=== PATIENT | male | born 1940 | race Caucasian/White ===

== ENCOUNTER 2019-03-18 09:17 | Emergency (ER) | payer OTHER ==
[2019-03-18] MEDS ORDERED: NA CHLORIDE 0.9% 500 ML ONE ×2 (10:51→14:58)
[2019-03-18] MEDS ORDERED: TETANUS & DIPHTHERIA TOX,ADULT 0.5 ML VIAL ONE (10:52)
[2019-03-18 10:56] LABS: Absolute Lymphocytes (CBC) 0.7 K/uL (0.7-4.9); Basophils % 0.2 % (0-1.3); Hematocrit 42.8 % (39.6-49.0); MPV 8.8 fL (7.6-11.3)
--- NOTE | 2019-03-18 11:06 | RAD REPORT ---
EXAM DESCRIPTION: CT - CTHCSPWOC - 03/18/2019 10:50 am CLINICAL HISTORY: Trauma, head and neck injury. Fall injury;Pain COMPARISON: No comparisons TECHNIQUE: Axial 5 mm thick images of the head were obtained. Axial 2 mm thick images of the cervical spine were obtained with sagittal and coronal reconstruction images generated and reviewed. All CT scans are performed using dose optimization technique as appropriate and may include automated exposure control or mA/KV adjustment according to patient size. FINDINGS: CT HEAD WITHOUT CONTRAST: No acute hemorrhage, hydrocephalus or extra-axial collection is identified.Prominent generalized brai n atrophy pattern is noted.No areas of brain edema or midline shift. The paranasal sinuses and mastoids are clear.The calvarium is intact. 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 Small posterior osteophyt es are present involving the mid and lower cervical levels.No prevertebral soft tissues swelling is i dentified. Carotid atherosclerosis. Upper lung liz are emphysematous. IMPRESSION: No acute intracranial or cervical spine findings.
[2019-03-18 11:12] LABS: Albumin 3.5 g/dL (3.4-5.0); Bilirubin Direct 0.3 mg/dL (0-0.2); Potassium 4.8 mmol/L (3.5-5.1); Protein, Total 6.8 g/dL (6.4-8.2)
--- NOTE | 2019-03-18 11:24 | RAD REPORT ---
EXAM DESCRIPTION: RAD - Sacrum And Coccyx - 03/18/2019 11:17 am CLINICAL HISTORY: PAIN COMPARISON: No comparisons FINDINGS: The bones are demineralized. No evidence of a fracture seen. Mild atherosclerosis.
[2019-03-18] MEDS ORDERED: NA CHLORIDE 0.9% 1,000 ML ONE ×2 (11:50→15:37)
--- NOTE | 2019-03-18 11:55 | RAD REPORT ---
EXAM DESCRIPTION: RAD - Chest Single View - 03/18/2019 11:49 am CLINICAL HISTORY: Weakness Chest pain. COMPARISON: No comparisons FINDINGS: Portable technique limits examination quality. The lungs are mildly emphysematous but grossly clear. The heart is normal in size. Changes of prior C ABG noted.No displaced fracture seen. IMPRESSION: No acute intrathoracic process suspected.
--- NOTE | 2019-03-18 12:11 | RAD REPORT ---
EXAM DESCRIPTION: CT - Abdomen Pelvis Wo Contrast - 03/18/2019 11:44 am CLINICAL HISTORY: Abdominal pain, diarrhea, leukocytosis, fall COMPARISON: None. TECHNIQUE: Axial [address] imaging of the abdomen and pelvis was performed without IV contrast. No IV contrast was given because of allergy, abnormal renal function, patient refusal or physician re quest. Oral contrast was given. All CT scans are performed using dose optimization technique as appropriate and may include automated exposure control or mA/KV adjustment according to patient size. FINDINGS: No suspicious findings in the lung bases. No cardiomegaly or pericardial effusion. The liver, spleen and pancreas show no suspicious findings on non-contrast imaging. At least 1 subcen timeter gallstone is identified. No active gallbladder process suspected. No biliary tree dilatation. No hydronephrosis or suspicious renal mass. Right-side central renal calcifications are suspected to be vascular. Nonobstructing calyx calcification may be the etiology for a lower pole calcification. R ight adrenal gland is unremarkable. Left adrenal gland fullness is present. Isodense renal masses and pyelonephritis cannot be excluded in the absence of IV contrast. The urinary bladder is without sign ificant finding. Small hiatal hernia is present at the GE junction. No gastric wall thickening or mass suspected. No a cute small bowel finding identifiable. Normal diameter air-filled appendix identified. No acute colon finding from cecum through the hepatic flexure. There is wall thickening of the colon from mid desce nding colon through the distal rectum. No one focal colon mass identified. There is some stranding in the perirectal fat. Nonspecific left-sided colitis is suspected. Wall thickening or edema could be s econdary to an underlying leukocytosis or other metabolic process. No free air or pneumatosis. No mass or bulky lymphadenopathy. No hernia defects seen. A 5-6 centimeter area of a amorphous stranding is present in the inferior aspect right lower quadrant . No abnormal skeletal muscular finding in this region. Given the history of fall, this could be post traumatic hemorrhage. A spontaneous hemorrhage would be a differential consideration if the patient i s on anticoagulation medication. The tip of the appendix abuts this area of stranding ; however, a pr imary appendix process is not suspected. No suspicious bony findings. IMPRESSION: No bowel obstruction, free air or surgically emergent finding. A 4-5 centimeter area of a amorphous stranding is seen in the inferior right lower quadrant suspected to be hemorrhagic material from either spontaneous hemorrhage or due to the provided history of fall . Circumferential wall thickening extending from mid descending colon through the rectum. This could be an nonspecific colitis. Bowel wall thickening or edema from leukocytosis or electrolyte imbalance wo uld be possible as well. Cholelithiasis without evidence for cholecystitis. No biliary tree abnormality. Full assessment is limited is the absence of IV contrast.
[2019-03-18 12:18] LABS: Protime INR 1.4
--- NOTE | 2019-03-18 12:38 | EKG ---
Test Date: 2019-03-18 Test Time: 11:19:24 [employer]: TERE MEASUREMENT RESULTS: Intervals: Rate: 106 MA: 220 QRSD: 118 QT: 410 QTc: 544 [place]: P: 89 MA: 220 QRS: 39 T: -24 INTERPRETIVE STATEMENTS: Sinus tachycardia with 1st degree AV block Right bundle branch block T wave abnormality, consider inferolateral ischemia Abnormal ECG No previous ECG available for comparison Electronically Signed On 03-18-19 12:37:38 CDT by Gio Juarez
[2019-03-18 12:54] LABS: Troponin (Emerg Dept Use Only) 0.03 ng/mL (0.0-0.045)
[2019-03-18 13:21] LABS: Urine Amorphous Sediment 1+ /HPF (NONE SEEN); Urine Bacteria <20 /HPF (NONE SEEN); Urine Culture Reflex Order NOT NEEDED; Urine RBC <5 /HPF (NONE SEEN)
--- NOTE | 2019-03-18 13:21 | ER ---
Nurse's Notes [facility] Name: Edward Ambrosio Age: 78 yrs Sex: Male : 1940 Arrival Date: 03/18/2019 Time: 09:23 Bed 23 Private MD: Diagnosis: Colitis;Diarrhea, unspecified;Rhabdomyolysis;Dehydration;Other fall on same level Presentation: 03/18 09:23 Presenting complaint: EMS states: found patient on floor c/o pain to sacrum. aj reports normal mentation for patient. Patient alert and oriented to person and place. Denies feeling sick. Transition of care: patient was not received from another setting of care. Onset of symptoms was March 18, 2019. Risk Assessment: Do you want to hurt yourself or someone else? Patient reports no desire to harm self or others. Initial Sepsis Screen: Does the patient meet any 2 criteria? No. Patient's initial sepsis screen is negative. Does the patient have a suspected source of infection? No. Patient's initial sepsis screen is negative. Care prior to arrival: None. 09:23 Method Of Arrival: EMS: [facility] 09:23 Acuity: MAO 3 aj Triage Assessment: 09:32 General: Appears in no apparent distress. comfortable, Behavior is calm, cooperative, aj appropriate for age. Pain: Complains of pain in buttocks. Neuro: Level of Consciousness is awake, alert, obeys commands, Oriented to person, place. Respiratory: Airway is patent Respiratory effort is even, unlabored, Respiratory pattern is regular, symmetrical. Derm: Skin is intact, is healthy with good turgor, Skin is pink, warm \T\ dry. normal. Historical: - Allergies: 09:32 PENICILLINS; aj - Home Meds: 09:32 galantamine 24 mg oral C24P 1 cap once daily [Active]; simvastatin 20 mg Oral tab 1 tab aj once daily [Active]; metoprolol tartrate 50 mg Oral tab 1 tab 2 times per day [Active]; amlodipine 5 mg tab 1 tab once daily [Active]; memantine 10 mg oral tab 1 tab 2 times per day [Active]; trazodone 100 mg Oral tab 1 tab nightly [Active]; clopidogrel 75 mg oral tab 1 tab once daily [Active]; ranitidine HCl 150 mg Oral cap 1 cap 2 times per day [Active]; lisinopril 20 mg Oral tab 1 tab once daily [Active]; cyanocobalamin (vitamin B-12) 1,000 mcg oral tab [Active]; - PMHx: 09:32 Alzheimers; Hypertension; Hyperlipidemia; Diabetes - IDDM; aj - 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 - Social history:: Smoking status: Patient/guardian denies using tobacco. - Ebola Screening: : Patient negative for fever greater than or equal to 101.5 degrees Fahrenheit, and additional compatible Ebola Virus Disease symptoms Patient denies exposure to infectious person Patient denies travel to an Ebola-affected area in the 21 days before illness onset No symptoms or risks identified at this time. Screenin:12 Abuse screen: Denies threats or abuse. Denies injuries from another. Nutritional mg2 screening: No deficits noted. Tuberculosis screening: No symptoms or risk factors identified. Fall Risk Fall in past 12 months (25 points). Secondary diagnosis (15 points) Alzheimer's, IV access (20 points). Gait- Weak (10 pts.). Mental Status- Overestimates/Forgets Limitations (15 pts.). Assessment: 13:27 General: Appears in no apparent distress. comfortable, Behavior is calm, cooperative. mg2 Pain: Denies pain. Neuro: Level of Consciousness is awake, alert, obeys commands, Oriented to person, place. Cardiovascular: Capillary refill < 3 seconds Patient's skin is warm and dry. Respiratory: Airway is patent Respiratory effort is even, unlabored, Respiratory pattern is regular, symmetrical. GI: No signs and/or symptoms were reported involving the gastrointestinal system. GI: Rectal exam: Bleeding noted. : No signs and/or symptoms were reported regarding the genitourinary system. EENT: Derm: Skin is intact, is healthy with good turgor, Skin is pink, warm \T\ dry. normal. Musculoskeletal: Circulation, motion, and sensation intact. Capillary refill < 3 seconds. 16:02 Reassessment: report given to SHARI Polanco, patient is well, GCS 15/15. mg2 conscious and coherent prior to transfer. Vital Signs: 09:32 BP 165 / 68; Pulse 103; Resp 19; Temp 99.2(O); Pulse Ox 97% on R/A; Weight 63.5 kg; aj Height 5 ft. 9 in. (175.26 cm); 13:05 BP 164 / 85; Pulse 103; Resp 18; Temp 99.2; Pulse Ox 98% on R/A; mg2 14:28 BP 156 / 55; Pulse 106; Resp 18; Temp 99.2; Pulse Ox 97% on R/A; Pain 0/10; mg2 15:13 BP 122 / 60; Pulse 108; Resp 18; Temp 99.4; Pulse Ox 97% on R/A; Pain 0/10; mg2 09:32 Body Mass Index 20.67 (63.50 kg, 175.26 cm) aj ED Course: 09:23 Patient arrived in ED. aj 09:25 Triage completed. aj 09:32 Arm band placed on left wrist. Patient placed in an exam room, on a stretcher, on aj cardiac rn, on pulse oximetry. 09:35 Arvin Jimenez NP is PHCP. pm1 09:35 Naga Stoner MD is Attending Physician. pm1 10:05 Deja David RN is Primary Nurse. aj 10:52 CT Head C Spine In Process Unspecified. EDMS 11:17 Sacrum And Coccyx In Process Unspecified. EDMS 11:45 CT Abd/Pelvis - Without Contrast In Process Unspecified. EDMS 11:49 X-ray completed. Portable x-ray completed in exam room. Patient tolerated procedure jb2 well. 11:51 Chest Single View XRAY In Process Unspecified. EDMS 13:11 Served as a supervisor sample preparation during rectal exam. mg2 13:13 Eliane Bush MD is Hospitalizing Provider. pm1 13:26 Inserted saline lock: 20 gauge in right antecubital area, using aseptic technique. mg2 Blood collected. by MANJU Short. 13:28 Patient has correct armband on for positive identification. product marketing coordinator on. Pulse mg2 ox on. NIBP on. Door closed. Warm blanket given. 16:05 Patient transferred, IV remains in place. mg2 Administered Medications: 10:46 Drug: Tetanus-Diphtheria Toxoid Adult 0.5 ml {Web Producer: [employer]. Exp: aj 12/20/2020. Lot #: [id number]. } Route: IM; Site: right deltoid; 14:25 Follow up: Response: No adverse reaction mg2 11:25 Drug: NS 0.9% 500 ml Route: IV; Rate: bolus; Site: right antecubital; ss 14:25 Follow up: Response: No adverse reaction; IV Status: Completed infusion; IV Intake: mg2 500ml 12:00 Drug: NS 0.9% (30 ml/kg) 30 ml/kg Route: IV; Rate: bolus; Site: right antecubital; mg2 16:04 Follow up: Response: No adverse reaction; IV Status: Completed infusion; IV Intake: mg2 1900ml 13:33 Drug: Flagyl 500 mg Volume: 100 ml; Route: IVPB; Rate: 200 ml/hr; Infused Over: 30 mg2 mins; Site: right antecubital; 14:43 Follow up: Response: No adverse reaction; IV Status: Completed infusion mg2 14:20 Drug: LevaQUIN 500 mg Volume: 100 ml; Route: IVPB; Infused Over: 60 mins; Site: right mg2 antecubital; 16:04 Follow up: Response: No adverse reaction; IV Status: Completed infusion mg2 14:55 Drug: Insulin Regular Human 10 units {Co-Signature: bob (Deja David RN).} Route: IVP; mg2 Site: right antecubital; 16:04 Follow up: Response: No adverse reaction; Blood sugar is lowered mg2 15:26 Drug: NS 0.9% 1000 ml Route: IV; Rate: 100 ml/hr; Site: right antecubital; mg2 16:04 Follow up: Response: No adverse reaction; IV Status: Infusion continued upon transfer mg2 Point of Care Testing: Blood Glucose: 09:34 Blood Glucose: 405 mg/dL; aj 15:45 Blood Glucose: 399 mg/dL; mg2 Ranges: Intake: 14:25 IV: 500ml; Total: 500ml. mg2 16:04 IV: 1900ml; Total: 2400ml. mg2 Outcome: 13:21 Decision to Hospitalize by Provider. pm1 14:11 ER care complete, transfer ordered by MD. pm1 16:05 Transferred by ground EMS to [facility], Transfer form completed. mg2 16:05 Condition: stable 16:05 Instructed on the need for transfer, Demonstrated understanding of instructions. 16:05 Patient left the ED. mg2 Signatures: Dispatcher [employer] Deja Yoo RN RN aj Buechter, Jesse jb2 Smirch, Shelby, RN RN ss Marinas, Patrick, SPORTS CLERK SPORTS CLERK pm1 Jonathan Villa RN RN mg2 Deja David RN aj Corrections: (The following items were deleted from the chart) 12:47 NS 0.9% (30 ml/kg) 30 ml/kg IV at bolus in right antecubital aj mg2 14:24 Response: No adverse reaction; IV Status: Completed infusion; IV Intake: 1900ml mg2 mg2 14:25 Response: No adverse reaction; IV Status: Completed infusion; IV Intake: 1000ml mg2 mg2
--- NOTE | 2019-03-18 13:22 | EDPHYS ---
Physician Documentation [facility] Name: Edward Ambrosio Age: 78 yrs Sex: Male : 1940 Arrival Date: 03/18/2019 Time: 09:23 Bed 23 Private MD: ED Physician Naga Stoner HPI: 03/18 10:48 This 78 yrs old Male presents to ER via EMS with complaints of Fall. pm1 10:48 Details of fall: The patient fell from an upright position, while standing. Onset: The pm1 symptoms/episode began/occurred One fall yesterday and one fall this AM. Associated injuries: The patient sustained injury to the head, coccyx. Historical: - Allergies: 09:32 PENICILLINS; aj - Home Meds: 09:32 galantamine 24 mg oral C24P 1 cap once daily [Active]; simvastatin 20 mg Oral tab 1 tab aj once daily [Active]; metoprolol tartrate 50 mg Oral tab 1 tab 2 times per day [Active]; amlodipine 5 mg tab 1 tab once daily [Active]; memantine 10 mg oral tab 1 tab 2 times per day [Active]; trazodone 100 mg Oral tab 1 tab nightly [Active]; clopidogrel 75 mg oral tab 1 tab once daily [Active]; ranitidine HCl 150 mg Oral cap 1 cap 2 times per day [Active]; lisinopril 20 mg Oral tab 1 tab once daily [Active]; cyanocobalamin (vitamin B-12) 1,000 mcg oral tab [Active]; - PMHx: 09:32 Alzheimers; Hypertension; Hyperlipidemia; Diabetes - IDDM; aj - 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 - Social history:: Smoking status: Patient/guardian denies using tobacco. - Ebola Screening: : Patient negative for fever greater than or equal to 101.5 degrees Fahrenheit, and additional compatible Ebola Virus Disease symptoms Patient denies exposure to infectious person Patient denies travel to an Ebola-affected area in the 21 days before illness onset No symptoms or risks identified at this time. ROS: 10:48 Constitutional: Negative for fever, chills, and weight loss, Eyes: Negative for injury, pm1 pain, redness, and discharge, ENT: Negative for injury, pain, and discharge, Neck: Negative for injury, pain, and swelling, Cardiovascular: Negative for chest pain, palpitations, and edema, Respiratory: Negative for shortness of breath, cough, wheezing, and pleuritic chest pain. 10:48 : Negative for injury, bleeding, discharge, and swelling, MS/Extremity: Negative for injury and deformity. 10:48 Skin: Negative for injury, rash, and discoloration, Neuro: Negative for headache, weakness, numbness, tingling, and seizure. 10:48 Abdomen/GI: Positive for diarrhea, rectal bleeding, Negative for abdominal pain, nausea, vomiting. 10:48 Back: Positive for of the sacrum and coccyx, Negative for pain with movement. Exam: 10:48 Constitutional: This is a well developed, well nourished patient who is awake, alert, pm1 and in no acute distress. Head/Face: Normocephalic, atraumatic. Eyes: Pupils equal round and reactive to light, extra-ocular motions intact. Lids and lashes normal. Conjunctiva and sclera are non-icteric and not injected. Cornea within normal limits. Periorbital areas with no swelling, redness, or edema. ENT: Nares patent. No nasal discharge, no septal abnormalities noted. Tympanic membranes are normal and external auditory canals are clear. Oropharynx with no redness, swelling, or masses, exudates, or evidence of obstruction, uvula midline. Mucous membranes moist. Neck: Trachea midline, no thyromegaly or masses palpated, and no cervical lymphadenopathy. Supple, full range of motion without nuchal rigidity, or vertebral point tenderness. No Meningismus. Chest/axilla: Normal chest wall appearance and motion. Nontender with no deformity. No lesions are appreciated. Cardiovascular: Regular rate and rhythm with a normal S1 and S2. No gallops, murmurs, or rubs. Normal PMI, no JVD. No pulse deficits. Respiratory: Lungs have equal breath sounds bilaterally, clear to auscultation and percussion. No rales, rhonchi or wheezes noted. No increased work of breathing, no retractions or nasal flaring. 10:48 Back: No spinal tenderness. No costovertebral tenderness. Full range of motion. Skin: Warm, dry with normal turgor. Normal color with no rashes, no lesions, and no evidence of cellulitis. MS/ Extremity: Pulses equal, no cyanosis. Neurovascular intact. Full, normal range of motion. 10:48 Abdomen/GI: Inspection: abdomen appears normal, Bowel sounds: normal, Palpation: abdomen is soft and non-tender, in all quadrants, Rectal exam: rectal tone normal, hemorrhoid(s), external, with associated bleeding, with inflammation, without thrombosis, mass, is not appreciated, swelling, is not appreciated. 10:48 Neuro: Orientation: to person, Mentation: Baseline per , Motor: moves all fours. Vital Signs: 09:32 BP 165 / 68; Pulse 103; Resp 19; Temp 99.2(O); Pulse Ox 97% on R/A; Weight 63.5 kg; aj Height 5 ft. 9 in. (175.26 cm); 13:05 BP 164 / 85; Pulse 103; Resp 18; Temp 99.2; Pulse Ox 98% on R/A; mg2 14:28 BP 156 / 55; Pulse 106; Resp 18; Temp 99.2; Pulse Ox 97% on R/A; Pain 0/10; mg2 15:13 BP 122 / 60; Pulse 108; Resp 18; Temp 99.4; Pulse Ox 97% on R/A; Pain 0/10; mg2 09:32 Body Mass Index 20.67 (63.50 kg, 175.26 cm) aj MDM: 09:50 Patient medically screened. pm1 13:12 Data reviewed: vital signs. Data interpreted: Pulse oximetry: on room air is 98 %. pm1 Interpretation: normal. Counseling: I had a detailed discussion with the patient and/or guardian regarding: the historical points, exam findings, and any diagnostic results supporting the discharge/admit diagnosis, lab results, radiology results, the need for further work-up and treatment in the hospital. 14:17 ED course: [facility] pm1 15:27 Physician consultation: MD Rodriguez regarding regarding transfer, patient's condition, pm1 and will see patient in ED. 03/18 10:29 Order name: Basic Metabolic Panel; Complete Time: 11:18 pm1 03/18 10:29 Order name: CBC with Diff; Complete Time: 11:18 pm1 03/18 10:29 Order name: Creatinine for Radiology; Complete Time: 11:18 pm1 03/18 10:29 Order name: Hepatic Function; Complete Time: 11:18 pm03/18 10:29 Order name: Lipase; Complete Time: 11:18 pm03/18 11:21 Order name: Blood Culture Adult (2) pm03/18 11:21 Order name: Ckmb; Complete Time: 13:04 pm03/18 11:21 Order name: CPK; Complete Time: 13:04 pm03/18 11:21 Order name: Lactate; Complete Time: 13:04 pm03/18 11:21 Order name: Procalcitonin; Complete Time: 13:04 pm03/18 11:21 Order name: Protime (+inr); Complete Time: 13:04 pm03/18 11:21 Order name: Ptt, Activated; Complete Time: 13:04 pm03/18 11:21 Order name: Troponin (emerg Dept Use Only); Complete Time: 13:04 pm03/18 11:21 Order name: Urine Microscopic Only; Complete Time: 15:41 pm03/18 10:29 Order name: CT Head C Spine; Complete Time: 11:18 pm03/18 10:29 Order name: Sacrum And Coccyx XRAY pm03/18 10:36 Order name: Sacrum And Coccyx; Complete Time: 12:13 EDMS 03/18 11:21 Order name: CT Abd/Pelvis - Without Contrast; Complete Time: 13:04 pm03/18 11:21 Order name: Chest Single View XRAY; Complete Time: 12:13 pm03/18 13:09 Order name: Urine Dipstick--Ancillary (enter results) ak 03/18 14:39 Order name: Glucose, Ancillary Testing; Complete Time: 15:41 EDMS 03/18 14:39 Order name: Glucose, Ancillary Testing; Complete Time: 15:41 EDMS 03/18 14:48 Order name: Glucose; Complete Time: 15:41 mg2 03/18 15:39 Order name: Glucose, Ancillary Testing; Complete Time: 15:41 EDMS 03/18 16:03 Order name: Lactate Sepsis 2 HR Follow-up; Complete Time: 16:11 EDMS 03/18 10:29 Order name: EKG; Complete Time: 10:30 pm03/18 10:29 Order name: EKG - Nurse/Tech; Complete Time: 11:51 pm1 03/18 10:29 Order name: IV Saline Lock; Complete Time: 11:51 pm1 03/18 10:29 Order name: Labs collected and sent; Complete Time: 11:51 pm1 03/18 11:21 Order name: Accucheck; Complete Time: 11:41 pm1 03/18 11:21 Order name: Cardiac monitoring; Complete Time: 11:41 pm1 03/18 11:21 Order name: O2 Per Protocol; Complete Time: 11:41 pm1 03/18 11:21 Order name: O2 Sat Monitoring; Complete Time: 11:41 pm1 03/18 11:21 Order name: Urine Dipstick-Ancillary (obtain specimen); Complete Time: 13:28 pm1 Administered Medications: 10:46 Drug: Tetanus-Diphtheria Toxoid Adult 0.5 ml {Supervisor Incising: [employer]. Exp: bob 12/20/2020. Lot #: [id number]. } Route: IM; Site: right deltoid; 14:25 Follow up: Response: No adverse reaction mg2 11:25 Drug: NS 0.9% 500 ml Route: IV; Rate: bolus; Site: right antecubital; ss 14:25 Follow up: Response: No adverse reaction; IV Status: Completed infusion; IV Intake: mg2 500ml 12:00 Drug: NS 0.9% (30 ml/kg) 30 ml/kg Route: IV; Rate: bolus; Site: right antecubital; mg2 16:04 Follow up: Response: No adverse reaction; IV Status: Completed infusion; IV Intake: mg2 1900ml 13:33 Drug: Flagyl 500 mg Volume: 100 ml; Route: IVPB; Rate: 200 ml/hr; Infused Over: 30 mg2 mins; Site: right antecubital; 14:43 Follow up: Response: No adverse reaction; IV Status: Completed infusion mg2 14:20 Drug: LevaQUIN 500 mg Volume: 100 ml; Route: IVPB; Infused Over: 60 mins; Site: right mg2 antecubital; 16:04 Follow up: Response: No adverse reaction; IV Status: Completed infusion mg2 14:55 Drug: Insulin Regular Human 10 units {Co-Signature: bob David RN).} Route: IVP; mg2 Site: right antecubital; 16:04 Follow up: Response: No adverse reaction; Blood sugar is lowered mg2 15:26 Drug: NS 0.9% 1000 ml Route: IV; Rate: 100 ml/hr; Site: right antecubital; mg2 16:04 Follow up: Response: No adverse reaction; IV Status: Infusion continued upon transfer mg2 Point of Care Testing: Blood Glucose: 09:34 Blood Glucose: 405 mg/dL; aj 15:45 Blood Glucose: 399 mg/dL; mg2 Ranges: Critical Glucose Levels:Adult <50 mg/dl or >400 mg/dl <40 mg/dl or >180 mg/dl Disposition: 16:17 Co-signature as Attending Physician, Naga Stoner MD I agree with the assessment and kdr plan of care. Disposition: 03/18/19 14:11 Transfer ordered to [facility]. Diagnosis are Colitis, Diarrhea, unspecified, Rhabdomyolysis, Dehydration, Other fall on same level. - Reason for transfer: Higher level of care. - Accepting physician is [facility] . - Condition is Stable. - Problem is new. - Symptoms have improved. Signatures: Dispatcher [employer] EDDeja Stevenson, RN RN Naga Bowen MD MD [facility] Anjana Richmond RN RN ss Arvin Jimenez NP NEUROLOGICAL SURGEON pm1 Jonathan Villa RN RN mg2 Deja David RN aj Corrections: (The following items were deleted from the chart) 13:24 13:21 Hospitalization Ordered by Eliane Bush MD for Inpatient Admission. Preliminary pm1 diagnosis is Left sided colitis. Bed requested for Telemetry/MedSurg (Inpatient). Status is Inpatient Admission. Condition is Stable. Problem is new. Symptoms have improved. UTI on Admission? No. pm1 13:24 13:24 03/18/2019 13:21 Hospitalization Ordered by Eliane Bush MD for Inpatient pm1 Admission. Preliminary diagnosis is Left sided colitis; Dehydration. Bed requested for Telemetry/MedSurg (Inpatient). Status is Inpatient Admission. Condition is Stable. Problem is new. Symptoms have improved. UTI on Admission? No. pm1 13:29 13:24 03/18/2019 13:21 Hospitalization Ordered by Eliane Bush MD for Inpatient pm1 Admission. Preliminary diagnosis is Left sided colitis; Dehydration; Rhabdomyolysis. Bed requested for Telemetry/MedSurg (Inpatient). Status is Inpatient Admission. Condition is Stable. Problem is new. Symptoms have improved. UTI on Admission? No. pm1 14:06 13:29 03/18/2019 13:21 Hospitalization Ordered by Eliane Bush MD for Inpatient pm1 Admission. Preliminary diagnosis is Left sided colitis; Dehydration; Rhabdomyolysis; Diarrhea, unspecified. Bed requested for Telemetry/MedSurg (Inpatient). Status is Inpatient Admission. Condition is Stable. Problem is new. Symptoms have improved. UTI on Admission? No. pm1 14:18 14:11 03/18/2019 14:11 Transfer ordered to [place] [facility] [id number] [facility]. Diagnosis is Colitis; Diarrhea, unspecified; Rhabdomyolysis; Dehydration; Other fall on same level. Reason for transfer: Higher level of care. Accepting physician is [facility]. Condition is Stable. Problem is new. Symptoms have improved. pm1 16:05 14:18 03/18/2019 14:11 Transfer ordered to [facility]. Diagnosis is mg2 Colitis; Diarrhea, unspecified; Rhabdomyolysis; Dehydration; Other fall on same level. Reason for transfer: Higher level of care. Accepting physician is [facility] . Condition is Stable. Problem is new. Symptoms have improved. pm1
[2019-03-18 13:39] LABS: Urine Blood 3+ (NEG); Urine Glucose 2+ (NEG); Urine Protein 2+ (NEG)
[2019-03-18] MEDS ORDERED: METRONIDAZOLE 500mg IVPB 500 MG/100 ML BAG IV ONE (13:47)
[2019-03-18] MEDS ORDERED: Levofloxacin500mg IV 500 MG/100 ML BAG IV ONE (14:31)
--- NOTE | 2019-03-18 14:40 | P.CNS ---
Date of Consult: 03/18/19 Reason for Consult: Admission Requesting Physician: Naga Stoner Primary Care Provider: [place] Chief Complaint: Fall History of Present Illness: This is a 78-year-old male who is seen at the [facility] for all of this care who presented to the ED after having a fall yesterday at the house and fall today again. at bedside stated that patient had a fall yesterday and she was able to get him out and in bed and did not think anything of it. Patient's however got worried today when he had another fall and decided to bring him to the ER. Patient's also noted the patient has been having some abdominal pain along with some diarrhea that has been bloody in nature. Yesterday patient's stated that he had a diarrheal episode that was followed with profuse bleeding from the rectal area. When patient fell this morning patient's is unable to get him up and off the ground and thus she decided to bring him to the ER for further evaluation. In the ER patient was seen and examined by the ER physician. Lab work and imaging was done. Lab work was consistent with elevated lactic acid white count CK MB and creatinine. Abdominal CT was done which was consistent with 5- 6 cm hemorrhagic fluid collection on the right lower abdomen area along with possibility of ischemic versus infectious colitis on the descending colon all the way to the distal rectum area. Medicine team was consulted to admit the patient for further workup Review of Systems 10-point ROS is otherwise unremarkable Physical Examination General: In no apparent distress, Oriented x1, Other (Lethargic insomnia) Neck: Supple Respiratory: Normal air movement, Crackles/rales Cardiovascular: Regular rate/rhythm, Normal S1 S2 Gastrointestinal: Hypoactive, Tenderness, Rebound, Guarding Musculoskeletal: Erythema, Tenderness Integumentary: Rash(es) Neurological: Abnormal speech, Abnormal strength, Abnormal sensation Lymphatics: No axilla or inguinal lymphadenopathy Laboratory Data (last 24 hrs) 03/18/19 11:45: PT 16.3 H, INR 1.40, APTT 32.3 03/18/19 10:43: Creatinine 2.00 H 03/18/19 10:43: WBC 18.3 H, Hgb 14.2, Hct 42.8, Plt Count 173 03/18/19 10:43: Sodium 140, Potassium 4.8, BUN 36 H, Creatinine 2.02 H, Glucose 438 H*, Total Bilirubin 1.0, AST 98 H, ALT 22, Alkaline Phosphatase 86, Lipase 27 L - Problems (1) Sepsis Current Visit: Yes Status: Acute Qualifiers: Sepsis type: sepsis due to unspecified organism Qualified Code(s): A41.9 - Sepsis, unspecified organism (2) Acute kidney injury Current Visit: Yes Status: Acute (3) Fall Current Visit: Yes Status: Acute Qualifiers: Encounter type: initial encounter Qualified Code(s): W19.XXXA - Unspecified fall, initial encounter (4) Rhabdomyolysis Current Visit: Yes Status: Acute Qualifiers: Rhabdomyolysis type: traumatic Encounter type: initial encounter Qualified Code(s): T79.6XXA - Traumatic ischemia of muscle, initial encounter (5) Ischemic colitis Current Visit: Yes Status: Acute (6) Abnormal finding on CT scan Current Visit: Yes Status: Acute (7) Hypertension Current Visit: Yes Status: Chronic Qualifiers: Hypertension type: essential hypertension Qualified Code(s): I10 - Essential (primary) hypertension Conclusions/Impression: This is a 78-year-old male with significant past medical history who is currently on chronic anti coagulation with aspirin and Plavix status post fall at the house yesterday and today with episodes of bloody diarrhea and abdominal pain who presented to the ED for further workup. Upon reviewing the labs/ imaging study with the radiologist at this time, performing a through physical examination, and after talking to the at bedside for over 30 mins, patient signs and symptoms along with results are highly suspicious of this is secondary to ischemic colitis along with spontaneous hemorrhage noted on the CT scan of the abdomen. Patient currently is primarily seen by the [facility] all his doctors are at the [facility]. At this time it is advisable that the patient should be transferred to the [facility] for continuity of care with his primary team along with consultants there. In addition given the high suspicious of ischemic colitis general surgery needs to be consulted in the ER to evaluate the patient in the ER. Patient also needs to be assessed for the need for embolization if in fact it is ischemic colitis. At which point vascular surgery needs to be involved along with interventional radiology which the services are not provided at her current Hospital and thus patient will need to be transferred to a higher level of care. This is of course with the condition if patient is denied at the [facility]. Case was discussed at length with PA in the ER. Plan of care for transfer to the [facility] was also discussed at length with the at bedside we initially denied however then agreed to get transfer to the [facility] after discussing the benefit of being at the [facility]. Case was also discussed with the ER physician and at this time and the recommendations were to transfer the patient to the [facility] for continuity of care if that is unavailable to consult general surgery and assess for the need for embolization. Is embolization as needed that the patient will need to be transferred to a higher level of care at [facility].
[2019-03-18] MEDS ORDERED: INSULIN -REGULAR HUMAN 50 UNIT/0.5 ML ML ONE (14:57)
== END 2019-03-18 16:05 | disposition short-term general hospital (02) ==
LOC: ER 09:17
DX: E86.0 Dehydration (principal); M62.82 Rhabdomyolysis; K52.9 Noninfective gastroenteritis and colitis, unspecified; W19.XXXA Unspecified fall, initial encounter; Y93.89 Activity, other specified; Y92.9 Unspecified place or not applicable; Z23 Encounter for immunization; Z88.0 Allergy status to penicillin; Z95.1 Presence of aortocoronary bypass graft; I10 Essential (primary) hypertension; E11.9 Type 2 diabetes mellitus without complications; E78.5 Hyperlipidemia, unspecified; G30.9 Alzheimer's disease, unspecified; F02.80 Dementia in other diseases classified elsewhere, unspecified severity, without behavioral disturbance, psychotic disturbance, mood disturbance, and anxiety
CPT/HCPCS: 36415; 70450; 71045; 72125; 72220; 74176; 80048; 80076; 81003; 81015; 82550; 82553; 82947; 82962; 83605; 83690; 84145; 84484; 85025; 85610; 85730; 87040; 90714; 93005; J7030

== ENCOUNTER 2019-04-05 14:56 | Emergency (ER) | payer OTHER ==
--- OUTSIDE RECORDS SUMMARY | 2019-04-05 15:01 | XMS REPORT | Continuity of Care Document ---
:1940 Author Organization [employer] Care Team Providers Name Role Phone ImaginAb Information fflap Unavailable Unavailable Problems Problem Status Onset Classification Date Comments Source Date Reported Sepsis 03/29/[address] POSS ISCHEMIC Active [facility] BOWEL [address] [place] [address] Center SEPSIS Active [address] Center Type II Active Problem 03/29/2019 [facility] diabetes [facility] mellitus poorly Center controlled SEPSIS, Active [facility] UNSPECIFIED Medical ORGANISM Center Medications Medication Details Route Status Patient Ordering Order Source Instructions Provider Date Citalopram 10 mg, Route: No Longer [facility] PO, Drug form: Active 2018 Medical TAB, Daily, Center Dosing Weight 76.001, kg, Start date: 03/28/19 9:00:00 CDT, Duration: 30 day, Stop date: 04/26/19 9:00:00 CDT quetiapine 25 mg, Route: Inactive [facility] PO, Drug form: 2019 Medical TAB, BID, Center Dosing Weight 76.001, kg, PRN Agitation, Start date: 03/27/19 10:18:00 CDT, Duration: 30 day, Stop date: 04/26/19 10:17:00 CDT Zyprexa 5 mg, 1 tab, No Longer [facility] Route: PO, Active 2018 Medical Drug form: Center TAB, Bedtime, Dosing Weight 76.001, kg, Start date: 03/26/19 21:00:00 CDT, Duration: 30 day, Stop date: 04/24/19 21:00:00 CDT, 0Notes: (Same as: ZyPREXA) Zyprexa 5 mg, 1 tab, No Longer [facility] Route: PO, Active 2018 Medical Drug form: Center TAB, BID, Dosing Weight 76.001, kg, PRN Agitation, Start date: 03/26/19 13:55:00 CDT, Duration: 30 day, Stop date: 04/25/19 13:54:00 CDT, 0Notes: (Same as: ZyPREXA) NS (Bolus) IV 500 mL, 500 Inactive [facility] ml/hr, Infuse 2019 Medical Over: 1 hr, [place] Route: IV, 500, Drug form: INJ, ONCE, Priority: STAT, Dosing Weight 76.001 kg, Start date: 03/26/19 7:30:00 CDT, Stop date: 03/26/19 7:30:00 CDT, 0 NS (Bolus) IV 500 mL, 500 Inactive [facility] ml/hr, Infuse 2019 Medical Over: 1 hr, [place] Route: IV, 500, Drug form: INJ, ONCE, Priority: STAT, Dosing Weight 76.001 kg, Start date: 03/25/19 10:11:00 CDT, Stop date: 03/25/19 10:11:00 CDT, 0 potassium 40 mEq, 2 tab, Inactive [place] chloride 20 mEq Route: PO, 2019 Medical oral tablet, Drug form: [place] extended release ERTAB, ONCE, Dosing Weight 76.001, kg, Start date: 03/25/19 9:14:00 CDT, Stop date: 03/25/19 9:14:00 CDT, 0Notes: (Same as: K-Dur 20) "Do Not Crush" Give with food and full glass of water For patients unable to swallow tablet, dissolve in one half glass of water. Allow about 2 minutes for the tablets to disintegrate. Stir before giving to prepare slurry and administer. Please exclude Patients with feeding tube less than 14 [place] (Dobhoff, J-tube etc) and pediatric and patients. Seroquel 25 mg, 1 tab, No Longer [place] Route: PO, Active 2018 Medical Drug form: [place] TAB, BID, Dosing Weight 76.001, kg, PRN Agitation, Start date: 03/24/19 17:11:00 CDT, Duration: 30 day, Stop date: 04/23/19 17:10:00 CDT, 0Notes: (Same as: SEROquel) Lovenox 40 mg, 0.4 mL, No Longer [place] Route: SUB-Q, Active 2018 Medical Drug form: [place] INJ, [id number], Dosing Weight 76.001, kg, Start date: 03/23/19 11:00:00 CDT, Duration: 30 day, Stop date: 04/21/19 11:00:00 CDTNotes: (Same as: Lovenox) Insulin Glargine 10 unit, 0.1 Inactive [place] 100 UNT/ML mL, Route: 2019 [facility] Injectable SUB-Q, Drug Center Solution form: SOLN, [Lantus] ONCE, Dosing Weight 76.001, kg, Start date: 03/23/19 10:24:00 CDT, Stop date: 03/23/19 10:24:00 CDT Plavix 75 mg, 1 tab, No Longer [place] Route: PO, Active 2019 Medical Drug form: [place] TAB, Daily, Dosing Weight 76.001, kg, Start date: 03/23/19 9:00:00 CDT, Duration: 30 day, Stop date: 04/21/19 9:00:00 CDTNotes: (Same As: Plavix) Potassium 20 mEq, 1 tab, Inactive [place] Chloride Route: PO, 2019 Medical Drug form: [place] ERTAB, ONCE, Dosing Weight 76.001, kg, Start date: 03/23/19 8:55:00 CDT, Stop date: 03/23/19 8:55:00 CDTNotes: (Same as: K-Dur 20) "Do Not Crush" Give with food and full glass of water For patients unable to swallow tablet, dissolve in one half glass of water. Allow about 2 minutes for the tablets to disintegrate. Stir before giving to prepare slurry and administer. Please exclude Patients with feeding tube less than 14 [place] (Dobhoff, J-tube etc) and pediatric and patients. potassium 2 pkt, Route: Inactive [place] phosphate-sodium PO, Drug Form: 2019 [facility] phosphate 250 PDR/REC, [place] mg-280 mg-160 mg Dosing Weight oral powder for 76.001, kg, reconstitution ONCE, Start date: 03/23/19 6:14:00 CDT, Stop date: 03/23/19 6:14:00 CDTNotes: (Same as: Phos-NaK) Each 1.5 gm pkt has 250mg phosphorous. Mix w/2.5oz water and stir. potassium 40 mEq, 2 tab, Inactive [place] chloride 20 mEq Route: PO, 2019 Medical oral tablet, Drug form: [place] extended release ERTAB, ONCE, Dosing Weight 76.001, kg, Start date: 03/23/19 6:14:00 CDT, Stop date: 03/23/19 6:14:00 CDTNotes: (Same as: K-Dur 20) "Do Not Crush" Give with food and full glass of water For patients unable to swallow tablet, dissolve in one half glass of water. Allow about 2 minutes for the tablets to disintegrate. Stir before giving to prepare slurry and administer. Please exclude Patients with feeding tube less than 14 [place] (Dobhoff, J-tube etc) and pediatric and patients. Mirtazapine 15 mg, 1 tab, No Longer [place] Route: PO, Active 2019 Medical Drug form: [place] TAB, Bedtime, Dosing Weight 76.001, kg, Start date: 03/22/19 21:00:00 CDT, Duration: 30 day, Stop date: 04/20/19 21:00:00 CDTNotes: (Same as:Remeron) Plavix 75 mg, 1 tab, Inactive [place] Route: PO, 2019 Medical Drug form: [place] TAB, ONCE, Dosing Weight 76.001, kg, Start date: 03/22/19 11:28:00 CDT, Stop date: 03/22/19 11:28:00 CDTNotes: (Same As: Plavix) Potassium 20 mEq, 1 tab, Inactive [place] Chloride Route: PO, 2019 Medical Drug form: [place] ERTAB, ONCE, Dosing Weight 76.001, kg, Start date: 03/22/19 5:32:00 CDT, Stop date: 03/22/19 5:32:00 CDTNotes: (Same as: K-Dur 20) "Do Not Crush" Give with food and full glass of water For patients unable to swallow tablet, dissolve in one half glass of water. Allow about 2 minutes for the tablets to disintegrate. Stir before giving to prepare slurry and administer. Please exclude Patients with feeding tube less than 14 [place] (Dobhoff, J-tube etc) and pediatric and patients. Trazodone 100 mg, 2 tab, No Longer [place] Hydrochloride Route: PO, Active 2019 Medical 100 MG Oral Drug form: Center Tablet TAB, Bedtime, Dosing Weight 76.001, kg, Start date: 03/21/19 21:00:00 CDT, Duration: 30 day, Stop date: 04/19/19 21:00:00 CDTNotes: (Same As: Desyrel) Lisinopril 20 mg, 1 tab, No Longer [place] Route: PO, Active 2018 Medical Drug form: Center TAB, Daily, Dosing Weight 76.001, kg, Start date: 03/21/19 9:00:00 CDT, Duration: 30 day, Stop date: 04/19/19 9:00:00 CDTNotes: (Same as: Prinivil, Zestril) Amlodipine 5 mg, 1 tab, No Longer [place] Route: PO, Active 2018 Medical Drug form: Center TAB, Daily, Dosing Weight 76.001, kg, Start date: 03/21/19 9:00:00 CDT, Duration: 30 day, Stop date: 04/19/19 9:00:00 CDTNotes: (Same as: Norvasc) Potassium 20 mEq, 100 Inactive [place] Chloride mL, Route: 2019 Medical IVPB, Drug Center form: INJ, Q2H, Dosing Weight 76.001, kg, Total Dose=60 meq, Start date: 03/21/19 8:00:00 CDT, Duration: 3 doses or times, Stop date: 03/21/19 12:00:00 CDT, Peripheral LineNotes: (Same as: KCL) Infuse no faster than 10 mEq/hr if given peripherally. vancomycin + 1.75 gm, No Longer [place] Sodium Chloride Route: IVPB, Active 2018 Medical 0.9% IV 250 mL [id number], Start Center date: 03/21/19 5:00:00 CDT, Duration: 30 day, Stop date: 04/19/19 17:00:00 CDT, ABX Indication: Intra-abdomina l InfectionNotes : TIME CRITICAL MEDICATION (Same As: Vancocin) Infusion rate 2001 mg: infuse over 2.5 hours For adult patients only: Round to nearest 250 mg per Medical Staff approval MEDICATION WASTE Product Size: 1000 mg Product Wasted: 250 mg Simvastatin 20 mg, 1 tab, No Longer [place] Route: PO, Active 2018 Medical Drug form: [place] TAB, Bedtime, Dosing Weight 76.001, kg, Start date: 03/20/19 21:00:00 CDT, Duration: 30 day, Stop date: 04/18/19 21:00:00 CDTNotes: (Same as: Zocor) Dextrose 50% 25 gm, 50 mL, No Longer [place] Syringe Route: IVP, Active 2018 Medical Drug Form: Center INJ, Dosing Weight 76.001, kg, PRN, PRN Blood Glucose Results, Start date: 03/20/19 18:27:00 CDT, Duration: 30 day, Stop date: 04/19/19 18:26:00 CDT Glucagon 1 mg, Route: No Longer [place] IM, Drug form: Active 2018 Medical PDR/INJ, PRN, Center Dosing Weight 76.001, kg, PRN Blood Glucose Results, Start date: 03/20/19 18:27:00 CDT, Duration: 30 day, Stop date: 04/19/19 18:26:00 CDT Insulin Lispro 10 unit, 0.1 No Longer [place] mL, Route: Active 2018 Medical SUB-Q, Drug Center form: SOLN, TID-Before Meals, Dosing Weight 76.001, kg, PRN Blood Glucose Results, Start date: 03/20/19 18:27:00 CDT, Duration: 30 day, Stop date: 04/19/19 18:26:00 CDTNotes: (Same as: Humalog) Roll in palms of hands gently; Do not shake vigorously. WASTE: F/P - Black; E - Municipal Trash Bin Stable for 28 days at room temperature. Expires in days from Date Amlodipine 5 mg, 1 tab, Inactive [place] Route: PO, 2018 Medical Drug form: [place] TAB, ONCE, Dosing Weight 76.001, kg, Start date: 03/20/19 17:53:00 CDT, Stop date: 03/20/19 17:53:00 CDTNotes: (Same as: Norvasc) Isolyte S PH 7.4 1,000 mL, No Longer [place] 1,000 mL Rate: 150 Active 2018 Medical ml/hr, Infuse Center over: 6.7 hr, Route: IV, Dosing Weight 76.001 kg, Total Volume: 1,000, Start date: 03/20/19 4:38:00 CDT, Duration: 30 day, Stop date: 04/19/19 4:37:00 CDT, 1.96, h9Vbpbn: (Same as: Isolyte S PH 7.4) Flagyl 500 mg, 100 No Longer [place] mL, Route: Active 2018 Medical IVPB, Drug Center form: INJ, [id number], Dosing Weight 76.001, kg, Start date: 03/20/19 2:30:00 CDT, Stop date: 03/23/19 22:00:00 CDT, ABX Indication: Infectious DiarrheaNotes: (Same as: Flagyl) Avoid alcohol. vancomycin 1.25 gm, 250 No Longer [place] mL, Route: Active 2018 Medical IVPB, Drug Center form: INJ, [id number], Start date: 03/20/19 2:00:00 CDT, Duration: 30 day, Stop date: 04/18/19 14:00:00 CDT, ABX Indication: Intra-abdomina l InfectionNotes : TIME CRITICAL MEDICATION Same as: Vancocin-NS (premixed) Infusion rate 2001 mg: infuse over 2.5 hours Melatonin 3 mg, 1 tab, No Longer [place] Route: PO, Active 2018 Medical Drug form: Center TAB, Bedtime, Dosing Weight 76.001, kg, PRN Sleep, Start date: 03/19/19 21:30:00 CDT, Duration: 30 day, Stop date: 04/18/19 21:29:00 CDTNotes: (Same as: Melatonin) Tylenol 650 mg, 2 tab, No Longer [place] Route: PO, Active 2018 Medical Drug form: Center TAB, Q6H, Dosing Weight 76.001, kg, PRN Pain 1-3/Temp > 100.4 F, Start date: 03/19/19 19:39:00 CDT, Duration: 30 day, Stop date: 04/18/19 19:38:00 CDTNotes: Do not exceed 4 gm/day. (Same as: Tylenol) Amlodipine 5 mg, Route: No Longer [place] PO, Drug form: Active 2019 Medical TAB, Daily, Center Dosing Weight 76.001, kg, Priority: STAT, Start date: 03/19/19 18:55:00 CDT, Duration: 30 day, Stop date: 04/18/19 9:00:00 CDT metoprolol 50 mg, 1 tab, No Longer [place] tartrate Route: PO, Active 2019 Medical Drug form: Center TAB, BID, Dosing Weight 76.001, kg, Priority: STAT, Start date: 03/19/19 18:55:00 CDT, Duration: 30 day, Stop date: 04/19/19 9:00:00 CDTNotes: (Same as: Lopressor) Insulin Lispro 15 unit, 0.15 No Longer [place] mL, Route: Active 2018 [facility] SUB-Q, Drug Center form: SOLN, Sliding Scale, Dosing Weight 76.001, kg, PRN Blood Glucose Results, Start date: 03/19/19 17:59:00 CDT, Duration: 30 day, Stop date: 04/18/19 17:58:00 CDTNotes: (Same as: Humalog) Roll in palms of hands gently; Do not shake vigorously. WASTE: F/P - Black; E - Municipal Trash Bin Stable for 28 days at room temperature. Expires in days from Date Dextrose 50% 12.5 gm, 25 No Longer [place] Syringe mL, Route: Active 2018 [facility] IVP, Drug Center Form: INJ, Dosing Weight 76.001, kg, PRN, PRN Blood Glucose Results, Start date: 03/19/19 17:59:00 CDT, Duration: 30 day, Stop date: 04/18/19 17:58:00 CDT Glucagon 1 mg, Route: No Longer [place] IM, Drug form: Active 2018 Medical PDR/INJ, PRN, Center Dosing Weight 76.001, kg, PRN Blood Glucose Results, Start date: 03/19/19 17:59:00 CDT, Duration: 30 day, Stop date: 04/18/19 17:58:00 CDT lactulose\\water 200 gm, 300 Inactive [place] - enema ml, Route: RI, 2018 Medical Drug Form: [place] SADIQ, Dosing Weight 76.001, kg, ONCE, Start date: 03/19/19 13:42:00 CDT, Stop date: 03/19/19 13:42:00 CDT, 300 mL lactulose + 700 mL waterNotes: (Same as:Chronulac) Galantamine 8mg Galantamine No Longer [place] ER Cap 8mg ER Cap, 24 Active 2019 Medical mg, 3 cap, [place] Drug form: [facility] [place], Route: PO, QAM, 03/19/19 13:00:00 CDT, Duration: 30 day, Stop date: 04/18/19 9:00:00 CDT Lactulose 200 gm, 300 Inactive [place] ml, Route: RI2018 Medical Drug Form: [place] ARON, Dosing Weight 76.001, kg, ONCE, Start date: 03/19/19 12:58:00 CDT, Stop date: 03/19/19 12:58:00 CDT, 300 mL lactulose + 700 mL waterNotes: (Same as:Chronulac) Lactulose 200 gm, 300 Inactive [place] ml, Route: RI2018 Medical Drug Form: [place] SADIQ, Dosing Weight 76.001, kg, ONCE, Start date: 03/19/19 11:34:00 CDT, Stop date: 03/19/19 11:34:00 CDT, 300 mL lactulose + 700 mL waterNotes: (Same as:Chronulac) Memantine 5 mg, 1 tab, No Longer [facility] Route: PO, Active 2018 Medical Drug form: [place] TAB, Q12H, Dosing Weight 76.001, kg, Start date: 03/19/19 11:31:00 CDT, Duration: 30 day, Stop date: 04/18/19 9:00:00 CDTNotes: (Same As: Namenda) Galantamine 24 mg, 1 cap, Inactive [facility] Route: PO, 2019 Medical Drug form: [place] ERCAP, QAM, Dosing Weight 76.001, kg, Start date: 03/19/19 9:00:00 CDT, Duration: 30 day, Stop date: 04/17/19 9:00:00 CDTNotes: Same as: [place] "Do Not Crush" Trazodone 100 mg=1 tab, Active [place] Hydrochloride PO, Bedtime, # 2019 Medical 100 MG Oral 30 tab, 0 Center Tablet Refill(s) memantine 10 mg 10 mg=1 tab, Active [place] oral tablet PO, Daily, # 2019 Medical 30 tab, 0 Center Refill(s) amLODIPine 5 mg 5 mg=1 tab, Active [place] oral tablet PO, Daily, # 2019 Medical 30 tab, 0 Center Refill(s) metoprolol 50 mg=1 tab, No Longer [facility] tartrate 50 mg PO, BID, # 180 Active 2019 Medical oral tablet tab, 0 Center Refill(s) Insulin, Aspart, 12 unit, Active [facility] Human SUB-Q, 2019 Medical TID-Before Center Meals, 0 Refill(s) simvastatin 20 20 mg=1 tab, Active [facility] mg oral tablet PO, Bedtime, # 2019 Medical 30 tab, 1 Center Refill(s) insulin detemir 47 unit, Active [facility] SUB-Q, Daily, 2019 Medical 0 Refill(s) Center galantamine 24 24 mg=1 cap, Active [facility] mg oral capsule, PO, QAM, # 30 2019 Medical extended release cap, 0 Center Refill(s) lisinopril 20 mg 20 mg=1 tab, No Longer [facility] oral tablet PO, Daily, # Active 2019 Medical 30 tab, 0 Center Refill(s) clopidogrel 75 75 mg=1 tab, Active [place] MG Oral Tablet PO, Daily, # 2019 Medical [Plavix] 90 tab, 0 Center Refill(s) Insulin Lispro 4 unit, 0.04 Inactive [facility] mL, Route: 2019 Medical SUB-Q, Drug Center form: SOLN, Sliding Scale, Dosing Weight 76.001, kg, PRN Blood Glucose Results, Start date: 03/19/19 7:45:00 CDT, Duration: 30 day, Stop date: 04/18/19 7:44:00 CDTNotes: (Same as: Humalog) Roll in palms of hands gently; Do not shake vigorously. WASTE: F/P - Black; E - Municipal Trash Bin Stable for 28 days at room temperature. Expires in days from Date Glucagon 1 mg, Route: Inactive [facility] IM, Drug form: 2019 Medical PDR/INJ, PRN, Center Dosing Weight 76.001, kg, PRN Blood Glucose Results, Start date: 03/19/19 7:45:00 CDT, Duration: 30 day, Stop date: 04/18/19 7:44:00 CDT Dextrose 50% 12.5 gm, 25 Inactive [facility] Syringe mL, Route: 2019 Medical IVP, Drug Center Form: INJ, Dosing Weight 76.001, kg, PRN, PRN Blood Glucose Results, Start date: 03/19/19 7:45:00 CDT, Duration: 30 day, Stop date: 04/18/19 7:44:00 CDT cefepime 1 gm, Route: No Longer [facility] IVP, Drug Active 2018 Medical form: INJ, Center ABXQ8H, Dosing Weight 76.001, kg, (CrCl 30 - 49 ml/min), Start date: 03/19/19 6:00:00 CDT, Stop date: 03/23/19 21:00:00 CDT, ABX Indication: Infectious DiarrheaNotes: (Same As: Maxipime) MEDICATION WASTE Product Size: 1000 mg Product Wasted: ___ mg Flagyl 500 mg, 100 No Longer [facility] mL, Route: Active 2018 Medical IVPB, Drug Center form: INJ, ABXQ8H, Dosing Weight 76.001, kg, Start date: 03/19/19 6:00:00 CDT, Duration: 5 day, Stop date: 03/23/19 22:00:00 CDT, ABX Indication: Infectious DiarrheaNotes: (Same as: Flagyl) Avoid alcohol. Insulin Glargine 20 unit, 0.2 No Longer [facility] 100 UNT/ML mL, Route: Active 2019 Medical Injectable SUB-Q, Drug Center Solution form: SOLN, [Lantus] Daily, Dosing Weight 76.001, kg, Start date: 03/19/19 4:00:00 CDT, Duration: 30 day, Stop date: 04/23/19 9:00:00 CDT Dextrose 50% 25 gm, 50 mL, No Longer [facility] Syringe Route: IVP, Active 2018 Medical Drug Form: Center INJ, Dosing Weight 76.001, kg, PRN, PRN Blood Glucose Results, Start date: 03/19/19 2:25:00 CDT, Duration: 30 day, Stop date: 04/18/19 2:24:00 CDT Glucagon 1 mg, Route: No Longer [facility] IM, Drug form: Active 2018 Medical PDR/INJ, PRN, Center Dosing Weight 76.001, kg, PRN Blood Glucose Results, Start date: 03/19/19 2:25:00 CDT, Duration: 30 day, Stop date: 04/18/19 2:24:00 CDT Isolyte S PH 7.4 2,000 mL, No Longer [facility] 2,000 mL Rate: 150 Active 2019 Medical ml/hr, Infuse Center over: 13.3 hr, Route: IV, Dosing Weight 76.001 kg, Total Volume: 2,000, Start date: 03/19/19 1:36:00 CDT, Duration: 1 day, Stop date: 03/20/19 1:35:00 CDT, 1.96, o8Gtyot: (Same as: Isolyte S PH 7.4) Protonix 40 mg, Route: No Longer [facility] IVP, Drug Active 2019 Medical form: INJ, Center ONCE, Dosing Weight 63.5, kg, Priority: STAT, Start date: 03/18/19 23:21:00 CDT, Stop date: 03/18/19 23:21:00 CDTNotes: For IV push reconstitute with 10 ml 0.9% sodium chloride and push over 2 minutes. (Same as: Protonix) pantoprazole 100 mL, Rate: No Longer [facility] additive 80 mg + 10 ml/hr, Active 2019 Medical Sodium Chloride Infuse over: Center 0.9% IV 100 mL 10 hr, Route: IVPB, Dosing Weight 63.5 kg, Total Volume: 100, Infuse at 8 mg/hr for 72 hrs for GI bleeding, Start date: 03/18/19 23:21:00 CDT, Duration: 72 hr, Stop date: 03/21/19 23:20:00 CDT, 1.76, d5Ghzep: For IV push reconstitute with 10 ml 0.9% sodium chloride and push over 2 minutes. (Same as: Protonix) Isolyte S PH-7.4 1,000 mL, Inactive [place] (Bolus) IV 1,000 ml/hr, 2019 Medical Route: IV, Center ONCE, Dosing Weight 63.5 kg, Start date: 03/18/19 19:14:00 CDT, Stop date: 03/18/19 19:14:00 CDT Isolyte S PH-7.4 1,000 mL, Inactive [place] (Bolus) IV 1,000 ml/hr, 2019 Medical Route: IV, Center ONCE, Dosing Weight 63.5 kg, Start date: 03/18/19 17:26:00 CDT, Stop date: 03/18/19 17:26:00 CDT Saline Flush 10 mL, Route: Inactive [place] 0.9% IVP, Drug 2019 Medical Form: INJ, Center Dosing Weight 63.5, kg, PRN, PRN Line Flush, Start date: 03/18/19 17:16:00 CDT, Duration: 30 day, Stop date: 04/17/19 17:15:00 CDT Saline Flush 10 mL, Route: No Longer [place] 0.9% IVP, Drug Active 2019 Medical Form: INJ, Center Dosing Weight 63.5, kg, PRN, PRN Line Flush, Start date: 03/18/19 17:15:00 CDT, Duration: 30 day, Stop date: 04/17/19 17:14:00 CDT cefepime 2 gm, Route: Inactive 03/18[facility] [place] IVP, Drug 2019 Medical form: INJ, Center ONCE, Dosing Weight 63.5, kg, Priority: STAT, Start date: 03/18/19 17:14:00 CDT, Stop date: 03/18/19 17:14:00 CDT, ABX Indication: ED - Suspected SepsisNotes: MEDICATION WASTE Product Size: 2000 mg Product Wasted: ___ mg Vancomycin 1.5 gm, 250 Inactive 03/18/ [facility] mL, Route: 2019 Medical IVPB, Drug Center form: INJ, ONCE, Dosing Weight 63.5, kg, Priority: STAT, Start date: 03/18/19 17:13:00 CDT, Stop date: 03/18/19 17:13:00 CDT, ABX Indication: ED - Suspected SepsisNotes: TIME CRITICAL MEDICATION Same as: Vancocin-NS (premixed) Infusion rate 2000 mg: infuse over 2.5 hours Allergies, Adverse Reactions, Alerts Substance Category Reaction Severity Reaction Status Date Comments Source type Reported penicillins Assertion Drug Active [facility] [place] Immun[place] No Data Provided for This Section Results Order Name Results Value Reference Date Interpretation Comments Source Range CARDIAC Total CK 56 12 - 191 03/25 [facility] CHEM PANEL eGFR 73 03/25 Result Comment: The Medical eGFR is Center calculated using the CKD-EPI formula. In most young, healthy individuals the eGFR will be >90 mL/min/1.73m2 . The eGFR declines with age. An eGFR of 60-89 may be normal in some populations, particularly the elderly, for whom the CKD-EPI formula has not been extensively validated. Use of the eGFR is not recommended in the following populations:< br/>
Cathy viduals with unstable creatinine concentration s, including patients and those with serious co-morbid conditions.<b r/>
Patie nts with extremes in muscle mass or diet.

The data above are obtained from the National Kidney Disease Education Program (NKDEP) which additionally recommends that when the eGFR is used in patients with extremes of body mass index for purposes of drug dosing, the eGFR should be multiplied by the estimated BMI. CHEM PANEL Sodium Lvl 141 135 - 145 03/25 [facility]2018 [facility] CHEM PANEL Potassium Lvl 3.4 3.5 - 5.1 03/[address] CHEM PANEL Glucose Lvl 183 70 - 99 03/[address] CHEM PANEL BUN 20 7 - 22 03/[address] CHEM PANEL Chloride Lvl 107 95 - 109 03/[address] CHEM PANEL CO2 27 24 - 32 03/25 2018 [facility] CHEM PANEL Calcium Lvl 8.2 8.5 - 10.5 03/25 2018 [facility] CHEM PANEL AGAP 10.4 10.0 - 03/25 [place] 20.0 [facility] CHEM PANEL Creatinine 0.98 0.50 - 03/25 [place] Lvl 1.40 /2018 [facility] HEMATOLOGY Hgb 11.5 14.0 - 03/25 [place] 18.0 [facility] HEMATOLOGY Hct 32.0 42.0 - 03/25 [place] 54.0 [facility] HEMATOLOGY MCV 95.5 80.0 - 03/25 [facility] 94.0 [facility] HEMATOLOGY MCH 34.2 27.0 - 03/25 [facility] 31.0 [facility] HEMATOLOGY WBC 6.3 3.7 - 10.4 03/25 [facility]2018 [facility] HEMATOLOGY RBC 3.36 4.70 - 03/25 [place] 6.10 [facility] HEMATOLOGY MPV 8.9 7.4 - 10.4 03/25 2018 [facility] HEMATOLOGY Platelet 175 133 - 450 03/25 [facility]2018 [facility] HEMATOLOGY MCHC 35.8 32.0 - 03/25 [facility] 36.0 [facility] HEMATOLOGY RDW 12.6 11.5 - 03/25 [place] 14.5 [facility] HEMATOLOGY Neutrophils # 3.8 1.5 - 8.1 03/25 [facility]2018 [facility] HEMATOLOGY Eosinophils 2.4 0.0 - 4.0 03/25 [facility]2018 [facility] HEMATOLOGY Basophils 0.6 0.0 - 1.0 03/25 [facility]2018 [facility] HEMATOLOGY Monocytes 16.8 2.0 - 12.0 03/25 [facility]2018 [facility] HEMATOLOGY Eosinophils # 0.1 0.0 - 0.5 03/[address] HEMATOLOGY Lymphocytes # 1.3 1.0 - 5.5 03/25 [facility]2018 [facility] HEMATOLOGY Monocytes # 1.1 0.0 - 0.8 03/[address] HEMATOLOGY Lymphocytes 20.6 20.0 - 03/25 [place] 40.0 2019 [facility] HEMATOLOGY Segs 59.6 45.0 - 03/25 [place] 75.0 [facility] CHEM PANEL Magnesium Lvl 1.8 1.8 - 2.4 03/24 [facility]2018 [facility] CHEM PANEL Phosphorus 2.6 2.5 - 4.5 03/24 [facility]2018 [facility] ELECTROLYTE AGAP 9.6 10.0 - 03/24 [facility] S 20.0 [facility] ELECTROLYTE eGFR 83 03/24 Result [facility] Comment: The Medical eGFR is Center calculated using the CKD-EPI formula. In most young, healthy individuals the eGFR will be >90 mL/min/1.73m2 . The eGFR declines with age. An eGFR of 60-89 may be normal in some populations, particularly the elderly, for whom the CKD-EPI formula has not been extensively validated. Use of the eGFR is not recommended in the following populations:< br/>
Cathy viduals with unstable creatinine concentration s, including patients and those with serious co-morbid conditions.<b r/>
Patie nts with extremes in muscle mass or diet.

The data above are obtained from the National Kidney Disease Education Program (NKDEP) which additionally recommends that when the eGFR is used in patients with extremes of body mass index for purposes of drug dosing, the eGFR should be multiplied by the estimated BMI. ELECTROLYTE Calcium Lvl 8.3 8.5 - 10.5 03/24 [facility]2018 [facility] ELECTROLYTE Potassium Lvl 3.6 3.5 - 5.1 03/[address] ELECTROLYTE Sodium Lvl 143 135 - 145 03/[address] ELECTROLYTE Chloride Lvl 110 95 - 109 03/24 [facility]2018 [facility] ELECTROLYTE CO2 27 24 - 32 03/24 [facility]2018 [facility] ELECTROLYTE Creatinine 0.84 0.50 - 03/24 [facility] [place] Lvl 1.40 [facility] ELECTROLYTE BUN 16 7 - 22 03/[address] ELECTROLYTE Glucose Lvl 142 70 - 99 03/24 [facility]2018 [facility] HEMATOLOGY MCV 97.3 80.0 - 03/24 [facility] 94.0 [facility] HEMATOLOGY MCH 33.9 27.0 - 03/24 [place] 31.0 [facility] HEMATOLOGY MCHC 34.9 32.0 - 03/24 [place] 36.0 [facility] HEMATOLOGY WBC 5.6 3.7 - 10.4 03/24 [facility] HEMATOLOGY RBC 3.47 4.70 - 03/24 [place] 6.10 [facility] HEMATOLOGY Hct 33.7 42.0 - 03/24 [place] 54.0 [facility] HEMATOLOGY Platelet 165 133 - 450 03/24 [facility]2018 [facility] HEMATOLOGY Hgb 11.8 14.0 - 03/24 18.0 [facility] HEMATOLOGY RDW 13.3 11.5 - 03/24 [place] 14.5 [facility] HEMATOLOGY MPV 8.8 7.4 - 10.4 03/24 [facility]2018 [facility] HEMATOLOGY Monocytes # 1.0 0.0 - 0.8 03/24 [facility]2018 [facility] HEMATOLOGY Eosinophils # 0.2 0.0 - 0.5 03/24 [facility]2018 [facility] HEMATOLOGY Lymphocytes # 1.1 1.0 - 5.5 03/24 [facility]2018 [facility] HEMATOLOGY Segs 58.8 45.0 - 03/24 [place] 75.0 [facility] HEMATOLOGY Basophils 0.6 0.0 - 1.0 03/24 2018 [facility] HEMATOLOGY Eosinophils 4.1 0.0 - 4.0 03/24 2018 [facility] HEMATOLOGY Monocytes 17.7 2.0 - 12.0 03/24 [facility]2018 [facility] HEMATOLOGY Neutrophils # 3.3 1.5 - 8.1 03/24 [facility]2018 [facility] HEMATOLOGY Lymphocytes 18.8 20.0 - 03/24 [place] 40.0 [facility] CHEM PANEL eGFR 85 03/23 [facility] Comment: The Medical eGFR is Center calculated using the CKD-EPI formula. In most young, healthy individuals the eGFR will be >90 mL/min/1.73m2 . The eGFR declines with age. An eGFR of 60-89 may be normal in some populations, particularly the elderly, for whom the CKD-EPI formula has not been extensively validated. Use of the eGFR is not recommended in the following populations:< br/>
Cathy viduals with unstable creatinine concentration s, including patients and those with serious co-morbid conditions.<b r/>
Patie nts with extremes in muscle mass or diet.

The data above are obtained from the National Kidney Disease Education Program (NKDEP) which additionally recommends that when the eGFR is used in patients with extremes of body mass index for purposes of drug dosing, the eGFR should be multiplied by the estimated BMI. CHEM PANEL Calcium Lvl 8.5 8.5 - 10.5 03/[address] CHEM PANEL CO2 20 24 - 32 03/[address] CHEM PANEL BUN 16 7 - 22 03/[address] CHEM PANEL Chloride Lvl 107 95 - 109 03/23 [facility]2018 [facility] CHEM PANEL Potassium Lvl 3.4 3.5 - 5.1 03/[address] CHEM PANEL Sodium Lvl 142 135 - 145 03/[address] CHEM PANEL Creatinine 0.81 0.50 - 03/23 [place] Lvl 1.40 [facility] CHEM PANEL Glucose Lvl 251 70 - 99 03/[address] CHEM PANEL AGAP 18.4 10.0 - 03/23 [place] 20.0 [facility] CHEM PANEL Phosphorus 2.1 2.5 - 4.5 03/[address] CHEM PANEL Magnesium Lvl 1.8 1.8 - 2.4 03/23 2018 [facility] HEMATOLOGY RBC 3.51 4.70 - 03/23 [place] 6.10 [facility] HEMATOLOGY WBC 7.2 3.7 - 10.4 03/23 [facility]2018 [facility] HEMATOLOGY Hct 34.1 42.0 - 03/23 [place] 54.0 [facility] HEMATOLOGY Hgb 11.8 14.0 - 03/23 [place] 18.0 [facility] HEMATOLOGY RDW 12.9 11.5 - 03/23 [place] 14.5 [facility] HEMATOLOGY MCHC 34.7 32.0 - 03/23 [place] 36.0 [facility] HEMATOLOGY Platelet 149 133 - 450 03/23 [facility]2018 [facility] HEMATOLOGY MCH 33.7 27.0 - 03/23 [place] 31.0 [facility] HEMATOLOGY MCV 97.1 80.0 - 03/23 [place] 94.0 [facility] HEMATOLOGY MPV 8.6 7.4 - 10.4 03/[address] HEMATOLOGY Segs 64.0 45.0 - 03/23 [place] 75.0 [facility] HEMATOLOGY Basophils 0.5 0.0 - 1.0 03/[address] HEMATOLOGY Lymphocytes # 1.2 1.0 - 5.5 03/[address] HEMATOLOGY Neutrophils # 4.6 1.5 - 8.1 03/[address] HEMATOLOGY Monocytes 17.4 2.0 - 12.0 03/[address] HEMATOLOGY Lymphocytes 16.5 20.0 - 03/23 [place] 40.0 [facility] HEMATOLOGY Monocytes # 1.3 0.0 - 0.8 03/[address] HEMATOLOGY Eosinophils # 0.1 0.0 - 0.5 03/[address] HEMATOLOGY Eosinophils 1.6 0.0 - 4.0 03/[address] PARATHYROID Ca Ion WB 1.07 1.05 - 03/23 [place] PROFILE 1. [facility] PARATHYROID Ca Norm WB 1.07 1.05 - 03/23 [facility] PROFILE . [facility] CHEM PANEL Globulin 2.4 2.7 - 4.2 03/[address] CHEM PANEL A/G Ratio 1.0 0.7 - 1.6 03/[address] CHEM PANEL B/C Ratio 20 6 - 25 03/[address] CHEM PANEL ALT 19 0 - 65 03/[address] CHEM PANEL Bili Total 0.7 0.2 - 1.3 03/[address] CHEM PANEL AST 38 0 - 37 03/[address] CHEM PANEL Alk Phos 56 39 - 136 03/[address] CHEM PANEL Total Protein 4.7 6.4 - 8.4 03/[address] CHEM PANEL Albumin Lvl 2.3 3.5 - 5.0 03/[address] CARDIAC Total CK 1302 12 - 191 03/21 [facility] 2018 [facility] CHEM PANEL Bili Total 1.0 0.2 - 1.3 03/[address] CHEM PANEL Alk Phos 76 39 - 136 03/[address] CHEM PANEL A/G Ratio 0.9 0.7 - 1.6 03/[address] CHEM PANEL Globulin 2.8 2.7 - 4.2 03/[address] CHEM PANEL Albumin Lvl 2.6 3.5 - 5.0 03/[address] CHEM PANEL AST 70 0 - 37 03/[address] CHEM PANEL ALT 25 0 - 65 03/[address] CHEM PANEL Total Protein 5.4 6.4 - 8.4 03/[address] CHEM PANEL B/C Ratio 17 6 - 25 03/[address] HEMATOLOGY Basophils # 0.1 0.0 - 0.2 03/[address] TOXICOLOGY Vanco Tr TND 0130 03/[address] TOXICOLOGY Vanco Tr 7.9 03/[address] CARDIAC Troponin-I 0.32 0.00 - 03/20 [facility] ENZYMES 0. [facility] CARDIAC Troponin-I 0.30 0.00 - 03/20 [facility] ENZYMES 0.40 [facility] CHEM PANEL B/C Ratio 27 6 - 25 03/[address] CHEM PANEL Globulin 3.1 2.7 - 4.2 03/[address] CHEM PANEL A/G Ratio 0.8 0.7 - 1.6 03/[address] CHEM PANEL Alk Phos 75 39 - 136 03/[address] CHEM PANEL Bili Total 0.7 0.2 - 1.3 03/[address] CHEM PANEL ALT 23 0 - 65 03/[address] CHEM PANEL AST 53 0 - 37 03/[address] CHEM PANEL Albumin Lvl 2.6 3.5 - 5.0 03/[address] CHEM PANEL Total Protein 5.7 6.4 - 8.4 03/[address] BACTERIAL - Shiga Toxin Negative Negative 03/20 [facility] SEROLOGY (03/20/19 12:16 AM) /2018 [facility] URINE AND Fecal None Seen 03/20 [facility] STOOL Leukocyte (03/20/19 12:16 AM) /2018 [facility] Culture: Normal Enteric Kirti Isolated 03/20 [facility] Stool No Salmonella, Shigella, Or Campylobacter Isolated [facility] CARDIAC Troponin-I 0.32 0.00 - 03/20 [facility] ENZYMES 0.40 [facility] TOXICOLOGY Vanco Lvl 2.9 03/20 [facility] CHEM PANEL Lactic Acid 2.0 0.5 - 2.2 03/19 [facility] CHEM PANEL Lactic Acid 2.4 0.5 - 2.2 03/19 [facility] CHEM PANEL Lactic Acid 2.3 0.5 - 2.2 03/19 [facility] /2018 [facility] Center DRUG SCREEN U Opiate Scr Positive Negative 03/18 [facility] *ABN* /2018 Medical (03/18/19 6:39 PM) Center DRUG SCREEN U Cannab Scr Negative Negative 03/18 [facility] (03/18/19 6:39 PM) /2018 [facility] Center DRUG SCREEN U Benzodiaz Negative Negative 03/18 [facility] Scr *NA* Medical (03/18/19 6:39 PM) Center DRUG SCREEN U Cocaine Scr Negative Negative 03/18 [facility] *NA* Medical (03/18/19 6:39 PM) Center DRUG SCREEN U Ruth Scr Negative Negative 03/18 [facility] *NA* /2018 Medical (03/18/19 6:39 PM) Center DRUG SCREEN U Amph Scr Negative Negative 03/18 [facility] *NA* [facility] (03/18/19 6:39 PM) Center DRUG SCREEN UDS Note See Note 03/18 [facility] (03/18/19 6:39 PM) /2018 Medical Center DRUG SCREEN U Negative Negative 03/18 [facility] Phencyclidine *NA* /2018 Medical Scr (03/18/19 6:39 PM) Center URINE AND UA Sq Epi None Seen Few 03/18 [facility] STOOL (03/18/19 6:39 PM) /2018 [facility] URINE AND UA Bacteria Few /HPF None Seen 03/18 [facility] STOOL /HPF /2018 Medical [place] URINE AND UA Mucus Rare /LPF None Seen 03/18 [facility] STOOL /LPF /2018 [facility] URINE AND UA RBC 3-5 /HPF 0 - 2 03/18 [facility] STOOL /2018 [facility] Center URINE AND UA WBC 0-2 /HPF None Seen 03/18 [facility] STOOL /HPF /2018 [facility] URINE AND UA Amorph Occasional None Seen 03/18 [facility] STOOL Marisela /HPF /HPF /2018 [facility] URINE AND UA Color Yellow Yellow 03/18 [facility] STOOL *NA* /2018 Medical (03/18/19 6:39 PM) Center URINE AND UA Turbidity Clear Clear 03/18 [facility] STOOL (03/18/19 6:39 PM) /2018 [facility] URINE AND UA Glucose >=1000 Negative 03/18 [facility] STOOL mg/dL mg/dL /2018 [facility] URINE AND UA Ketones 15 mg/dL Negative 03/18 [facility] STOOL mg/dL /2018 [facility] URINE AND UA pH 5.0 5.0 - 8.0 03/18 [facility] STOOL /2018 [facility] URINE AND UA Spec Grav 1.020 <=1.030 03/18 [facility] STOOL /2018 [facility] URINE AND UA Leuk Est Negative Negative 03/18 [facility] STOOL (03/18/19 6:39 PM) /2018 [facility] URINE AND UA Bili Negative Negative 03/18 [facility] STOOL *NA* /2018 [facility] (03/18/19 6:39 PM) [place] URINE AND UA Blood Large Negative 03/18 [facility] *ABN* /2018 [facility] (03/18/19 6:39 PM) [place] URINE AND UA Protein Trace Negative 03/18 [facility] *ABN* /2018 [facility] (03/18/19 6:39 PM) [place] URINE AND UA 0.2 0.1 - 1.0 03/18 [facility] Urobilinogen /2018 [facility] URINE AND UA Nitrite Negative Negative 03/18 [facility] (03/18/19 6:39 PM) [facility] CHEM PANEL Procalcitonin 21.07 0.00 - 03/18 Result [facility] Lvl 0.10 Comment: Medical Center Hospital Center Result(s) called to MILAN MOSES at 03/18/2019 20:51 by GEORGES. Read back OK. CHEM PANEL Lipase Lvl 36 73 - 393 03/18 [facility] BLOOD BANK Antibody Scrn Negative 03/18 [facility] RESULTS (03/18/19 5:00 PM) [facility] BLOOD BANK ABO/Rh B POS 03/18 [facility] RESULTS /2018 [facility] CARDIAC Total CK 3495 12 - 191 03/18 [facility] ENZYMES /2018 [facility] CHEM PANEL Bili Indirect 0.6 0.0 - 1.0 03/18 [place] [facility] CHEM PANEL Bili Direct 0.1 0.0 - 0.3 03/18 [place] /2018 [facility] HEMATOLOGY INR 1.53 0.85 - 03/18 [place] 1.17 [facility] HEMATOLOGY PT 18.1 12.0 - 03/18 [facility] 14.7 [facility] HEMATOLOGY PTT 37.5 22.9 - 03/18 [facility] 35.8 [facility] HEMATOLOGY Estimated % 0.0 0.0 - 7.5 03/18 [facility] Lysis [facility] HEMATOLOGY ACT (TEG) 113 86 - 118 03/18 [facility]2018 [facility] HEMATOLOGY R-time Rapid 0.7 0.4 - 0.7 03/18 [facility]2018 [facility] HEMATOLOGY K-time Rapid 1.1 0.6 - 2.3 03/18 [facility]2018 [facility] HEMATOLOGY Angle Rapid 77 64 - 80 03/18 [facility]2018 [facility] HEMATOLOGY [place] 0.6 03/18 [facility]2018 [facility] HEMATOLOGY Max Amplitude 71 52 - 71 03/18 [facility]2018 [facility] HEMATOLOGY G-value Rapid 12.0 5.0 - 11.6 03/[address] Pathology Reports No Data Provided for This Section Diagnostic Reports Report Value Date Source Carotid artery EXAM: US EXTRACRANIAL ARTERIAL DOPPLER 03/20/2019 [facility] Doppler bilat US DATE: 03/20/2019 12:28 CDT Center INDICATION: - CAROTID BRUIT ADDITIONAL INFORMATION: None. COMPARISON: CT cervical spine from 03/18/2019 TECHNIQUE: Multiplanar grayscale, color Doppler and spectral Doppler ultrasound of the carotid and vertebral arteries. FINDINGS: Right Carotid System: Right Common Carotid Artery (RCCA): 125 cm/s. Borderline elevated velocity and waveform. Wall thickening is present atherosclerotic plaque causes less than 50% stenosis. Right Internal Carotid Artery (PAOLO):. Total occlusion; lumen not identified. Right External Carotid Artery (RECA): 85 cm/s. Normal velocity and waveform. No significant plaque. Right Vertebral Artery (RVA): Normal velocity and waveform. Left Carotid System: Left Common Carotid Artery (LCCA): 122 cm/s. Normal velocity and waveform. Wall thickening is present. Left Internal Carotid Artery (LICA): 103 cm/s. Normal velocity and waveform. No significant plaque. Left External Carotid Artery (LECA): 105 cm. Normal velocity and waveform. No significant plaque. Left ICA:CCA: 0.84 Left Vertebral Artery (LVA): Normal velocity and waveform. IMPRESSION: 1. Total occlusion of the right internal carotid artery. 2. Borderline elevated velocities in the right common carotid artery with wall thickening and atherosclerotic plaque causing less than 50% stenosis. 3. Left internal carotid artery: No stenosis. 4. Vertebral arteries: Antegrade flow with normal waveforms bilaterally. According to the 2003 Consensus criteria: <50% stenosis: PSV <125 cm/sec, EDV <40cm/sec, ICA:CCA ratio <2 50-69% stenosis: PSV 125-230cm/sec, EDV 40-100cm/sec, ICA:CCA ratio 2-4 >70% stenosis: PSV >230cm/sec, EDV >100cm/sec, ICA:CCA ratio >4 REFERENCE: Radiology. 2003 [id number]. Carotid Artery Stenosis: Nash-scale and Doppler US diagnosis- Society of Radiologists in Ultrasound Consensus Conference. Jose Ramon EG, Rick CB, Munira GL, et. al. Spine-Outside Consult EXAM: CT CERVICAL SPINE WITHOUT CONTRAST 03/18/[address] [facility] [address] DATE: 03/18/2019 18:20 CDT Center INDICATION: - OUTSIDE STUDY/ FALL LESS THAN 8 FEET, second interpretation requested COMPARISON: None TECHNIQUE: Noncontrast CT images of the cervical spine, obtained at [facility]. Sagittal and coronal images provided. Axial images are not available. UT SECTION: ER FINDINGS: The spine is imaged from the skull base to the level of T2. There is exaggerated lordosis of the cervical spine. Partially visualized dextroscoliosis of the lower cervical and upper thoracic spine. No acute fracture or malalignment is identified. There is fusion of the C5 and C6 vertebral bodies. No acute soft tissue abnormality is identified. Bilateral carotid bulb calcifications are noted, more extensive on the right. IMPRESSION: No acute abnormality. Torso-Outside Consult EXAM: CT ABDOMEN AND PELVIS WITHOUT CONTRAST 2018 [facility] CT DATE: 03/18/2019 at 1147 hours Center INDICATION: - OUTSIDE STUDY/ FALL LESS THAN 8 FEET COMPARISON: None TECHNIQUE: Volumetric CT of the chest, abdomen and pelvis is without contrast from [facility] Axial and sagittal images are provided. UT SECTION: ER FINDINGS: Lines and tubes: None. Lower Neck: Supraclavicular soft tissues are unremarkable. Thoracic Aorta and Mediastinum: No mediastinal hematoma or thoracic aortic injury. Normal heart and pericardium. Lungs, Pleura, Diaphragm: No pulmonary contusions. The lungs are clear. No pleural effusion or pneumothorax. No diaphragmatic injury. Liver and biliary tree: Normal. No injury. No biliary abnormality. Gallbladder: Gallstones are seen within the gallbladder. No pericholecystic fluid or gallbladder wall thickening. Pancreas: Normal. No injury. Spleen: Normal. No injury. Adrenals: Normal. No injury. Kidneys and ureters: Nonspecific fat stranding bilaterally with nonobstructing punctate stones on the right. No injury. Bladder: Normal. No injury. Reproductive organs: No injury. Gastrointestinal tract: The rectosigmoid colon wall appears thickened; this may be secondary to under distention or colitis. Peritoneum and retroperitoneum: No fluid collections or free air. A 5 cm area of stranding is seen in the right lower quadrant. The tip of the appendix abuts this area, however a primary appendix proces s is not suspected. This may represent a posttraumatic hemorrhage. Lymph nodes: Normal. Vasculature: No vascular injury. There is extensive atherosclerotic calcification of the abdominal aorta and iliac arteries. Spine/ Bones: No acute abnormality of the spine. No other bony injury. Degenerative changes are seen most prominently at L3-L4 with disc space narrowing, vacuum disc phenomenon, and osteophyte formation. Soft tissues: Normal. IMPRESSION: 1. Fat stranding in the right lower quadrant may represent spontaneous hemorrhage, given history of fall. 2. Thickening of the rectosigmoid colon may represent colitis. Recommend correlation with history. 3. Cholelithiasis without CT evidence of cholecystitis. Overall agree with the outside report. Brain-Outside Consult 03/18/[address] [facility] [address] EXAMINATION: CT head without contrast, Rubi graft date: 03/18/2019 Center INDICATION: Fall less than 8 feet. FINDINGS: Noncontrast CT images of the head are performed at an outside institution and submitted for reinterpretation following transfer. There is no intracranial hemorrhage or other acute brain injury. Severe volume loss with enlargement of the ventricles and extra-axial spaces. The paranasal sinuses and skull base are unremarkable. IMPRESSION: No acute abnormality. Concur with outside report. Chest 1view DX EXAM: XR CHEST 1 VIEW 03/18/2019 [facility] DATE: 03/18/2019 17:16 CDT Center INDICATION: - Undifferentiated Sepsis COMPARISON: Chest radiograph 03/18/2019 at 1137 hours TECHNIQUE: AP chest. FINDINGS: Lines, tubes and hardware: Median sternotomy wires are aligned with fracture and the 2nd median sternotomy wire. Surgical audrey are noted in the left thoracic cavity and in the epigastric region. Lungs and pleura: The lungs are clear. No pleural effusion. No pneumothorax. Heart and mediastinum: The heart size is normal for technique. Vascular calcifications are present at the aorta. Pulmonary vascularity is normal. Bones: No acute abnormality. IMPRESSION: No acute abnormality. UT SECTION: ER Chest wo contrast CT EXAM: CT CHEST WITHOUT CONTRAST 03/18/2019 [facility] DATE: 03/18/2019 17:16 CDT Center INDICATION: - chest pain COMPARISON: Chest radiograph 03/18/2019 at 1717 hours TECHNIQUE: Volumetric CT of the chest is acquired without contrast. Axial, coronal and sagittal images are provided. IV contrast: None. DLP: 1026 mGy-cm FINDINGS: Please note that the study is limited without intravenous contrast. Lines, tubes and hardware: Median sternotomy wires are noted. Lower neck: The visible portions or the lower neck and thyroid are unremarkable. Axilla: Clear. Airway: Patent. Lungs and pleura: Biapical scarring is noted. Bilateral dependent atelectasis. A small bulla is noted at the superior segment of the left lower lobe. Mild centrilobular emphysematous changes are present. Scattered pulmonary nodules are identified: * 4 mm pulmonary nodule in the left apex (4, 15). * 2 mm pulmonary nodule in the right apex (4, 19). * 4 mm pulmonary nodule in the right apex (4, 23). * 3 mm pulmonary nodule in the right apex (4, 23). * 2 mm pulmonary nodule in the left upper lobe (4, 61).11 * 2 mm pulmonary nodule in the right upper lobe (4, 67). Mediastinum, reynaldo and intrathoracic lymph nodes: Normal. Heart, pericardium and great vessels: Severe atherosclerotic calcification of the coronary arteries and aortic arch and descending aorta. Upper abdomen: Tiny dependent gallstone is identified. Large hiatal hernia.14 Bones: No acute abnormality. Mild multilevel degenerative changes of the thoracic spine.. Soft tissues: Normal. IMPRESSION: 1. Please note that this study is limited without intravenous contrast. Within this limitation no definite acute abnormality the visualized. 2. Scattered small pulmonary nodules as described above. [place] SECTION: ER Consultation Notes No Data Provided for This Section Discharge Summaries No Data Provided for This Section History and Physicals No Data Provided for This Section Vital Signs Vital Sign Value Date Comments Source Respitory Rate 18 03/27/2019 [facility] Heart Rate 100 03/27/2019 [facility] Systolic (mm Hg) 155 03/27/2019 [facility] Diastolic (mm Hg) 83 03/27/2019 [facility] Temperature Oral (F) 98.4 F 03/27/2019 [facility] Heart Rate 102 03/27/2019 [facility] Temperature Oral (F) 98.5 F 03/27/2019 [facility] Respitory Rate 18 03/27/2019 [facility] Systolic (mm Hg) 121 03/27/2019 [facility] Diastolic (mm Hg) 63 03/27/2019 [facility] Temperature Oral (F) 97.3 F 03/27/2019 [facility] Systolic (mm Hg) 110 03/27/2019 [facility] Diastolic (mm Hg) 61 03/27/2019 [facility] Heart Rate 100 03/27/2019 [facility] Respitory Rate 20 03/26/2019 [facility] Height 180.34 cm 03/19/2019 [facility] Weight 76.001 03/19/2019 [facility] Weight 76.001 03/19/2019 [facility] BMI Calculated 23.37 03/19/2019 [facility] Height 180.34 cm 03/19/2019 [facility] BMI Calculated 20.67 03/18/2019 [facility] Weight 63.5 03/18/2019 [facility] Height 175.26 cm 03/18/2019 [facility] Encounters Location Location Encounter Encounter Reason Attending ADM DC Status Source Details Type Number For Provider Date Date Visit [facility] Inpatient [id number] [place] 03/18 03/27 [facility] /2018 [facility] [place] Procedures No Data Provided for This Section Assessment and Plan Assessment and Plan Date Source Extracted from:Title: Progress Note 03/27/2019 [facility] Author: Justin Mahajan MD Date: 03/26/19 1.Ischemic colitis(K52.9) Stable. Tolerating diet,Plavix 2.Acute blood loss anemia(D62) H&h stable. No need for transfusion. 3.Rhabdomyolysis(M62.82) Resolved 4.CAD (coronary artery disease)(I25.10) Continue Plavix, metoprolol ER and simvastatin. 5.Alzheimer's dementia(G30.9) Continue memantine and galantamine. Start PRNSeroquelchanged tozyprexafor agitation. Continue frequent reorientation. Pt gets restless at times and is needing telesitter 6.HTN (hypertension)(I10) Had orthostasis with standing with PTyesterday andD/c amlodipine. orthostatic vitals neg after stopping bp meds and hydration. 7.HLD (hyperlipidemia)(E78.5) Continue simvastatin. 8.Type 2 diabetes mellitus(E11.9) Continue Lantus and SSI. stable 9.Pulmonary nodule(R91.1) Needs outpatient follow-up. 10.Carotid artery disease(I77.9) Continue Plavix and simvastatin 11.Fall(W19.XXXA) Continue PT/OT. 12.Hypokalemia(E87.6) Repleted. 13.Physical deconditioning(R53.81) Continue PT/OT. Planfor SNF placement 14.Hypophosphatemia(E83.39) Repleted. lovenox pending snf, but pt is needing sitter which is delaying d/c. Will d/w regarding further plans. Extracted from:Title: Cardiology Consult Note Author: Aksaht Bucio MD Date: 03/20/19 Patient is a 78 yo M with hx of CAD s/p CABG in 2001, HLD, dementia who was admitted for ischemic colitis and hematochezia. [facility] He's s/p sigmoidoscopy and now under conservative management. Cardiology was consulted for ECG changes ECG changes - TWI and ST depression on lateral leads now resolved - isolated EULOGIO in lead III, normal troponins, lack of symptoms and normal TTE goes against acute coronary syndrome - TTE with normal EF and no evidence of wall motion abnormalities - No plan for coronary intervention or further diagnostic studies CAD Essential HTN - management per primary team however recommend restarting home amlodipine 5 daily and lisinopril 20 if continues to be hypertensive -Continue metoprolol 50 BID Thank you for the consult, patient seen and discussed with Dr. Eleazar Bucio IM PGY-3 Resident CARDIOLOGY ATTENDING STATEMENT I have seen and examined the patient with resident on 03/20/19. I have reviewed all relevant tests. I agree with the assessment and plan. Renata Bush MD Extracted from:Title: History and Physical Author: Ashu Smyth MD Date: 03/19/19 78-year-old malewithPMH ofhypertension, CAD status post CABG 2001, hyperlipidemia, Alzheimer's dementiainitially transferred here for concern for ischemic colitis. 1.Colitis(K52.9) 2.Bloody diarrhea(R19.7) 3.Sepsis(A41.9),Sepsis(A41.9) DD-infectious diarrhea, ischemic colitis Status post fluid resuscitation Stool leukocytes, stool culture, shiga toxin, C diff Would benefit fromantibiotics, will start on Cefepime, Flagyl (no cipro bc prolonged QTc) Stop antibiotic if shiga toxin positive F/u Bcx Continue IV fluid EGS consulted, no interventions GI consulted by ED RLQ ? hemorrhage- seen by trauma in ED and cleared Monitor Hb 4.Fall(W19.XXXA) No LOC PT, OT 5.Rhabdomyolysis(M62.82) Secondary to fall IV fluids Monitor CK 6.DINA (acute kidney injury)(N17.9) Likely prerenal secondary to diarrhea IV fluid Monitor BMP,avoid nephrotoxic medications 7.Lactic acidosis(E87.2) Improving with IV fluids, abx Trend lactate 8.CAD (coronary artery disease)(I25.10) Hold Plavix for nowbecause ofbloody diarrhea 9.Alzheimer's dementia(G30.9) Mental status seems to be at baseline C/w memantine, galantamine 10.HTN (hypertension)(I10) Hold antihypertensives 11.HLD (hyperlipidemia)(E78.5) Hold statinuntil acute issuesimprove 12.Diabetes mellitus(E11.9) Will start on about half the dose [id number] units Hold lispro Sliding scale insulin Sugar goal 1 40-1 80 13.Pulmonary nodule(R91.1) Outpatient follow-up updated scd bc bloody diarrhea pending improvement Plan of Care No Data Provided for This Section Social History Social History Date Source Social History TypeResponse 03/20/2019 [facility] Smoking Status Never smoker; Exposure to Tobacco Smoke None; Cigarette Smoking Last 365 Days No; Reg Smoking Cessation Counseling Yes entered on: 03/20/19 Family History No Data Provided for This Section Advance Directives No Data Provided for This Section Functional Status No Data Provided for This Section
--- OUTSIDE RECORDS SUMMARY | 2019-04-05 15:02 | XMS REPORT ---
:1940 [facility] [address] [place] [address] Dr. Duran [address] [place] [id number] Care Team Providers Name Role Phone Unavailable Unavailable Unavailable Problems This patient has no known problems. Allergies, Adverse Reactions, Alerts This patient has no known allergies or adverse reactions. Medications This patient has no known medications. Encounters Start End Encounter Admission Attending Care Care Encounter Date/Time Date/Time Type Type Clinicians Facility Department ID 2019-03-18 2019-03-18 Inpatient E [facility] [id number] 23:21:00 16:39:00
--- OUTSIDE RECORDS SUMMARY | 2019-04-05 15:02 | XMS REPORT | Summary of Care ---
:1940 Author Organization [facility] Address [address] [place] [id number] Encounter HQ Sweetier_marla(FIN) [id number] Date(s): 03/18/19 - 03/27/[address] Professional Services provided by [facility] [place] [address]- Encounter Diagnosis Sepsis (Discharge Diagnosis) - 03/18/19 Discharge Disposition: Home or Self Care Attending Physician: Rian Aguirre MD Admitting Physician: Rian Aguirre MD Referring Physician: Naga Stoner MD Vital Signs Most recent to oldest 1 2 3 [Reference Range]: Height 180.34 cm 180.34 cm 175.26 cm (03/19/19 5:30 PM) (03/19/19 2:06 AM) (03/18/19 4:44 PM) Temperature Oral [96.4-99.1 98.4 DegF 98.5 DegF 97.3 DegF DegF] (03/27/19 11:31 AM) (03/27/19 7:56 AM) (03/27/19 4:00 AM) Blood Pressure [90-140/60-90 155/83 mmHg 121/63 mmHg 110/61 mmHg mmHg] *HI* (03/27/19 7:56 AM) (03/27/19 4:00 AM) (03/27/19 11:31 AM) Respiratory Rate [14-20 BRMIN] 18 BRMIN 18 BRMIN 20 BRMIN (03/27/19 11:31 AM) (03/27/19 7:56 AM) (03/26/19 8:10 AM) Peripheral Pulse Rate [60-100 100 bpm 102 bpm 100 bpm bpm] (03/27/19 11:31 AM) *HI* (03/27/19 4:00 AM) (03/27/19 7:56 AM) Weight 76.001 kg 76.001 kg 63.5 kg (03/19/19 5:30 PM) (03/19/19 2:06 AM) (03/18/19 4:44 PM) Body Mass Index 23.37 m2 20.67 m2 (03/19/19 2:06 AM) (03/18/19 4:44 PM) Problem List Condition Effective Dates Status Health Status Informant Type II diabetes mellitus poorly Active controlled(Confirmed) Allergies, Adverse Reactions, Alerts Substance Reaction Severity Status penicillins Active Medications amLODIPine 5 mg, Route: PO, Drug form: TAB, Daily, Dosing Weight 76.001, kg, Priority: STAT , Start date: 03/19/19 18:55:00 CDT, Duration: 30 day, Stop date: 04/18/19 9:00: 00 CDT Start Date: 03/19/19 Stop Date: 03/20/19 Status: DiscontinuedamLODIPine 5 mg, 1 tab, Route: PO, Drug form: TAB, ONCE, Dosing Weight 76.001, kg, Start date: 03/20/19 17:53:00 CDT, Stop date: 03/20/19 17:53:00 CDT Notes: (Same as: John) Start Date: 03/20/19 Stop Date: 03/20/19 Status: CompletedamLODIPine 5 mg, 1 tab, Route: PO, Drug form: TAB, Daily, Dosing Weight 76.001, kg, Start date: 03/21/19 9:00:00 CDT, Duration: 30 day, Stop date: 04/19/19 9:00:00 CDT Notes: (Same as: John) Start Date: 03/21/19 Stop Date: 03/24/19 Status: DiscontinuedamLODIPine 5 mg oral tablet 5 mg=1 tab, PO, Daily, # 30 tab, 0 Refill(s) Start Date: 03/19/19 Status: Orderedcefepime 1 gm, Route: IVP, Drug form: INJ, ABXQ8H, Dosing Weight 76.001, kg, (CrCl 30 - 49 ml/min), Start date: 03/19/19 6:00:00 CDT, Stop date: 03/23/19 21:00:00 CDT, ABX Indication: Infectious Diarrhea Notes: (Same As: Maxipime) MEDICATION WASTE Product Size: 1000 mgProduct Wasted: ___ mg Start Date: 03/19/19 Stop Date: 03/22/19 Status: Discontinuedcefepime 2 gm, Route: IVP, Drug form: INJ, ONCE, Dosing Weight 63.5, kg, Priority: STAT, Start date: 03/18/1917:14:00 CDT, Stop date: 03/18/19 17:14:00 CDT, ABX Indication: ED - Suspected Sepsis Notes: MEDICATION WASTE Product Size: 2000 mgProduct Wasted: ___ mg Start Date: 03/18/19 Stop Date: 03/18/19 Status: Completedcitalopram 10 mg, Route: PO, Drug form: TAB, Daily, Dosing Weight 76.001, kg, Start date: 03/28/19 9:00:00 CDT,Duration: 30 day, Stop date: 04/26/19 9:00:00 CDT Start Date: 03/28/19 Stop Date: 03/27/19 Status: CanceledDextrose 50% Syringe 25 gm, 50 mL, Route: IVP, Drug Form: INJ, Dosing Weight 76.001, kg, PRN, PRN Blood Glucose Results, Start date: 03/20/19 18:27:00 CDT, Duration: 30 day, Stop date: 04/19/19 18:26:00 CDT Start Date: 03/20/19 Stop Date: 03/27/19 Status: DiscontinuedDextrose 50% Syringe 12.5 gm, 25 mL, Route: IVP, Drug Form: INJ, Dosing Weight 76.001, kg, PRN, PRN Blood Glucose Results, Start date: 03/20/19 18:27:00 CDT, Duration: 30 day, Stop date: 04/19/19 18:26:00 CDT Start Date: 03/20/19 Stop Date: 03/27/19 Status: DiscontinuedDextrose 50% Syringe 25 gm, 50 mL, Route: IVP, Drug Form: INJ, Dosing Weight 76.001, kg, PRN, PRN Blood Glucose Results, Start date: 03/19/19 2:25:00 CDT, Duration: 30 day, Stop date: 04/18/19 2:24:00 CDT Start Date: 03/19/19 Stop Date: 03/20/19 Status: DeletedDextrose 50% Syringe 12.5 gm, 25 mL, Route: IVP, Drug Form: INJ, Dosing Weight 76.001, kg, PRN, PRN Blood Glucose Results, Start date: 03/19/19 2:25:00 CDT, Duration: 30 day, Stop date: 04/18/19 2:24:00 CDT Start Date: 03/19/19 Stop Date: 03/20/19 Status: DeletedDextrose 50% Syringe 12.5 gm, 25 mL, Route: IVP, Drug Form: INJ, Dosing Weight 76.001, kg, PRN, PRN Blood Glucose Results, Start date: 03/19/19 7:45:00 CDT, Duration: 30 day, Stop date: 04/18/19 7:44:00 CDT Start Date: 03/19/19 Stop Date: 03/19/19 Status: DiscontinuedDextrose 50% Syringe 25 gm, 50 mL, Route: IVP, Drug Form: INJ, Dosing Weight 76.001, kg, PRN, PRN Blood Glucose Results, Start date: 03/19/19 7:45:00 CDT, Duration: 30 day, Stop date: 04/18/19 7:44:00 CDT Start Date: 03/19/19 Stop Date: 03/19/19 Status: DiscontinuedDextrose 50% Syringe 12.5 gm, 25 mL, Route: IVP, Drug Form: INJ, Dosing Weight 76.001, kg, PRN, PRN Blood Glucose Results, Start date: 03/19/19 17:59:00 CDT, Duration: 30 day, Stop date: 04/18/19 17:58:00 CDT Start Date: 03/19/19 Stop Date: 03/20/19 Status: DiscontinuedDextrose 50% Syringe 25 gm, 50 mL, Route: IVP, Drug Form: INJ, Dosing Weight 76.001, kg, PRN, PRN Blood Glucose Results, Start date: 03/19/19 17:59:00 CDT, Duration: 30 day, Stop date: 04/18/19 17:58:00 CDT Start Date: 03/19/19 Stop Date: 03/20/19 Status: DiscontinuedFlagyl 500 mg, 100 mL, Route: IVPB, Drug form: INJ, ABXQ8H, Dosing Weight 76.001, kg, Start date: 03/19/19 6:00:00 CDT, Duration: 5 day, Stop date: 03/23/19 22:00:00 CDT, ABX Indication: Infectious Diarrhea Notes: (Same as: Flagyl) Avoid alcohol. Start Date: 03/19/19 Stop Date: 03/20/19 Status: Voided With ResultsFlagyl 500 mg, 100 mL, Route: IVPB, Drug form: INJ, ABXQ8H, Dosing Weight 76.001, kg, Start date: 03/20/19 2:30:00 CDT, Stop date: 03/23/19 22:00:00 CDT, ABX Indication: Infectious Diarrhea Notes: (Same as: Flagyl) Avoid alcohol. Start Date: 03/20/19 Stop Date: 03/22/19 Status: Discontinuedgalantamine 24 mg, 1 cap, Route: PO, Drug form: ERCAP, QAM, Dosing Weight 76.001, kg, Start date: 03/19/19 9:00:00 CDT, Duration: 30 day, Stop date: 04/17/19 9:00:00 CDT Notes: Same as: Vishaladyne"Do Not Crush" Start Date: 03/19/19 Stop Date: 03/19/19 Status: Deletedgalantamine 24 mg oral capsule, extended release 24 mg=1 cap, PO, QAM, # 30 cap, 0 Refill(s) Start Date: 03/19/19 Status: OrderedGalantamine 8mg ER Cap Galantamine 8mg ER Cap, 24 mg, 3 cap, Drug form: MISC, Route: PO, QAM, 03/19/19 13:00:00 CDT, Duration: 30 day, Stop date: 04/18/19 9:00:00 CDT Start Date: 03/19/19 Stop Date: 03/27/19 Status: Discontinuedglucagon 1 mg, Route: IM, Drug form: PDR/INJ, PRN, Dosing Weight 76.001, kg, PRN Blood Glucose Results, Startdate: 03/20/19 18:27:00 CDT, Duration: 30 day, Stop date: 04/19/19 18:26:00 CDT Start Date: 03/20/19 Stop Date: 03/27/19 Status: Discontinuedglucagon 1 mg, Route: IM, Drug form: PDR/INJ, PRN, Dosing Weight 76.001, kg, PRN Blood Glucose Results, Startdate: 03/19/19 2:25:00 CDT, Duration: 30 day, Stop date: 04/18/19 2:24:00 CDT Start Date: 03/19/19 Stop Date: 03/20/19 Status: Deletedglucagon 1 mg, Route: IM, Drug form: PDR/INJ, PRN, Dosing Weight 76.001, kg, PRN Blood Glucose Results, Startdate: 03/19/19 7:45:00 CDT, Duration: 30 day, Stop date: 04/18/19 7:44:00 CDT Start Date: 03/19/19 Stop Date: 03/19/19 Status: Discontinuedglucagon 1 mg, Route: IM, Drug form: PDR/INJ, PRN, Dosing Weight 76.001, kg, PRN Blood Glucose Results, Startdate: 03/19/19 17:59:00 CDT, Duration: 30 day, Stop date: 04/18/19 17:58:00 CDT Start Date: 03/19/19 Stop Date: 03/20/19 Status: Discontinuedinsulin aspart 12 unit, SUB-Q, TID-Before Meals, 0 Refill(s) Start Date: 03/19/19 Status: Orderedinsulin detemir 47 unit, SUB-Q, Daily, 0 Refill(s) Start Date: 03/19/19 Status: Orderedinsulin lispro 10 unit, 0.1 mL, Route: SUB-Q, Drug form: SOLN, TID-Before Meals, Dosing Weight 76.001, kg, PRN Blood Glucose Results, Start date: 03/20/19 18:27:00 CDT, Duration: 30 day, Stop date: 04/19/19 18:26:00 CDT Notes: (Same as: Humalog) Roll in palms of hands gently; Do not shake vigorously. WASTE: F/P - Black; E - Municipal Trash BinStable for 28 days at room temperature.Expires in days from Date Start Date: 03/20/19 Stop Date: 03/27/19 Status: Discontinuedinsulin lispro 4 unit, 0.04 mL, Route: SUB-Q, Drug form: SOLN, TID-Before Meals, Dosing Weight 76.001, kg, PRN Blood Glucose Results, Start date: 03/20/19 18:27:00 CDT, Duration: 30 day, Stop date: 04/19/19 18:26:00 CDT Notes: (Same as: Humalog) Roll in palms of hands gently; Do not shake vigorously. WASTE: F/P - Black; E - Municipal Trash BinStable for 28 days at room temperature.Expires in days from Date Start Date: 03/20/19 Stop Date: 03/27/19 Status: Discontinuedinsulin lispro 6 unit, 0.06 mL, Route: SUB-Q, Drug form: SOLN, TID-Before Meals, Dosing Weight 76.001, kg, PRN Blood Glucose Results, Start date: 03/20/19 18:27:00 CDT, Duration: 30 day, Stop date: 04/19/19 18:26:00 CDT Notes: (Same as: Humalog) Roll in palms of hands gently; Do not shake vigorously. WASTE: F/P - Black; E - Municipal Trash BinStable for 28 days at room temperature.Expires in days from Date Start Date: 03/20/19 Stop Date: 03/27/19 Status: Discontinuedinsulin lispro 8 unit, 0.08 mL, Route: SUB-Q, Drug form: SOLN, TID-Before Meals, Dosing Weight 76.001, kg, PRN Blood Glucose Results, Start date: 03/20/19 18:27:00 CDT, Duration: 30 day, Stop date: 04/19/19 18:26:00 CDT Notes: (Same as: Humalog) Roll in palms of hands gently; Do not shake vigorously. WASTE: F/P - Black; E - Municipal Trash BinStable for 28 days at room temperature.Expires in days from Date Start Date: 03/20/19 Stop Date: 03/27/19 Status: Discontinuedinsulin lispro 2 unit, 0.02 mL, Route: SUB-Q, Drug form: SOLN, TID-Before Meals, Dosing Weight 76.001, kg, PRN Blood Glucose Results, Start date: 03/20/19 18:27:00 CDT, Duration: 30 day, Stop date: 04/19/19 18:26:00 CDT Notes: (Same as: Humalog) Roll in palms of hands gently; Do not shake vigorously. WASTE: F/P - Black; E - Municipal Trash BinStable for 28 days at room temperature.Expires in days from Date Start Date: 03/20/19 Stop Date: 03/27/19 Status: Discontinuedinsulin lispro 4 unit, 0.04 mL, Route: SUB-Q, Drug form: SOLN, Sliding Scale, Dosing Weight 76.001, kg, PRN Blood Glucose Results, Start date: 03/19/19 7:45:00 CDT, Duration: 30 day, Stop date: 04/18/19 7:44:00 CDT Notes: (Same as: Humalog) Roll in palms of hands gently; Do not shake vigorously. WASTE: F/P - Black; E - Municipal Trash BinStable for 28 days at room temperature.Expires in days from Date Start Date: 03/19/19 Stop Date: 03/19/19 Status: Discontinuedinsulin lispro 5 unit, 0.05 mL, Route: SUB-Q, Drug form: SOLN, Sliding Scale, Dosing Weight 76.001, kg, PRN Blood Glucose Results, Start date: 03/19/19 7:45:00 CDT, Duration: 30 day, Stop date: 04/18/19 7:44:00 CDT Notes: (Same as: Humalog) Roll in palms of hands gently; Do not shake vigorously. WASTE: F/P - Black; E - Municipal Trash BinStable for 28 days at room temperature.Expires in days from Date Start Date: 03/19/19 Stop Date: 03/19/19 Status: Discontinuedinsulin lispro 3 unit, 0.03 mL, Route: SUB-Q, Drug form: SOLN, Sliding Scale, Dosing Weight 76.001, kg, PRN Blood Glucose Results, Start date: 03/19/19 7:45:00 CDT, Duration: 30 day, Stop date: 04/18/19 7:44:00 CDT Notes: (Same as: Humalog) Roll in palms of hands gently; Do not shake vigorously. WASTE: F/P - Black; E - Municipal Trash BinStable for 28 days at room temperature.Expires in days from Date Start Date: 03/19/19 Stop Date: 03/19/19 Status: Discontinuedinsulin lispro 2 unit, 0.02 mL, Route: SUB-Q, Drug form: SOLN, Sliding Scale, Dosing Weight 76.001, kg, PRN Blood Glucose Results, Start date: 03/19/19 7:45:00 CDT, Duration: 30 day, Stop date: 04/18/19 7:44:00 CDT Notes: (Same as: Humalog) Roll in palms of hands gently; Do not shake vigorously. WASTE: F/P - Black; E - Municipal Trash BinStable for 28 days at room temperature.Expires in days from Date Start Date: 03/19/19 Stop Date: 03/19/19 Status: Discontinuedinsulin lispro 1 unit, 0.01 mL, Route: SUB-Q, Drug form: SOLN, Sliding Scale, Dosing Weight 76.001, kg, PRN Blood Glucose Results, Start date: 03/19/19 7:45:00 CDT, Duration: 30 day, Stop date: 04/18/19 7:44:00 CDT Notes: (Same as: Humalog) Roll in palms of hands gently; Do not shake vigorously. WASTE: F/P - Black; E - Municipal Trash BinStable for 28 days at room temperature.Expires in days from Date Start Date: 03/19/19 Stop Date: 03/19/19 Status: Discontinuedinsulin lispro 15 unit, 0.15 mL, Route: SUB-Q, Drug form: SOLN, Sliding Scale, Dosing Weight 76.001, kg, PRN Blood Glucose Results, Start date: 03/19/19 17:59:00 CDT, Duration: 30 day, Stop date: 04/18/19 17:58:00 CDT Notes: (Same as: Humalog) Roll in palms of hands gently; Do not shake vigorously. WASTE: F/P - Black; E - Municipal Trash BinStable for 28 days at room temperature.Expires in days from Date Start Date: 03/19/19 Stop Date: 03/20/19 Status: Discontinuedinsulin lispro 9 unit, 0.09 mL, Route: SUB-Q, Drug form: SOLN, Sliding Scale, Dosing Weight 76.001, kg, PRN Blood Glucose Results, Start date: 03/19/19 17:59:00 CDT, Duration: 30 day, Stop date: 04/18/19 17:58:00 CDT Notes: (Same as: Humalog) Roll in palms of hands gently; Do not shake vigorously. WASTE: F/P - Black; E - Municipal Trash BinStable for 28 days at room temperature.Expires in days from Date Start Date: 03/19/19 Stop Date: 03/20/19 Status: Discontinuedinsulin lispro 12 unit, 0.12 mL, Route: SUB-Q, Drug form: SOLN, Sliding Scale, Dosing Weight 76.001, kg, PRN Blood Glucose Results, Start date: 03/19/19 17:59:00 CDT, Duration: 30 day, Stop date: 04/18/19 17:58:00 CDT Notes: (Same as: Humalog) Roll in palms of hands gently; Do not shake vigorously. WASTE: F/P - Black; E - Municipal Trash BinStable for 28 days at room temperature.Expires in days from Date Start Date: 03/19/19 Stop Date: 03/20/19 Status: Discontinuedinsulin lispro 3 unit, 0.03 mL, Route: SUB-Q, Drug form: SOLN, Sliding Scale, Dosing Weight 76.001, kg, PRN Blood Glucose Results, Start date: 03/19/19 17:59:00 CDT, Duration: 30 day, Stop date: 04/18/19 17:58:00 CDT Notes: (Same as: Humalog) Roll in palms of hands gently; Do not shake vigorously. WASTE: F/P - Black; E - Municipal Trash BinStable for 28 days at room temperature.Expires in days from Date Start Date: 03/19/19 Stop Date: 03/20/19 Status: Discontinuedinsulin lispro 6 unit, 0.06 mL, Route: SUB-Q, Drug form: SOLN, Sliding Scale, Dosing Weight 76.001, kg, PRN Blood Glucose Results, Start date: 03/19/19 17:59:00 CDT, Duration: 30 day, Stop date: 04/18/19 17:58:00 CDT Notes: (Same as: Humalog) Roll in palms of hands gently; Do not shake vigorously. WASTE: F/P - Black; E - Municipal Trash BinStable for 28 days at room temperature.Expires in days from Date Start Date: 03/19/19 Stop Date: 03/20/19 Status: DiscontinuedIsolyte S PH 7.4 1,000 mL 1,000 mL, Rate: 150 ml/hr, Infuse over: 6.7 hr, Route: IV, Dosing Weight 76.001 kg, Total Volume: 1,000, Start date: 03/20/19 4:38:00 CDT, Duration: 30 day, Stop date: 04/19/19 4:37:00 CDT, 1.96, m2 Notes: (Same as: Isolyte S PH 7.4) Start Date: 03/20/19 Stop Date: 03/21/19 Status: DiscontinuedIsolyte S PH 7.4 2,000 mL 2,000 mL, Rate: 150 ml/hr, Infuse over: 13.3 hr, Route: IV, Dosing Weight 76.001 kg, Total Volume: 2,000, Start date: 03/19/19 1:36:00 CDT, Duration: 1 day, Stop date: 03/20/19 1:35:00 CDT, 1.96, m2 Notes: (Same as: Isolyte S PH 7.4) Start Date: 03/19/19 Stop Date: 03/20/19 Status: CompletedIsolyte S PH-7.4 (Bolus) IV 1,000 mL, 1,000 ml/hr, Route: IV, ONCE, Dosing Weight 63.5 kg, Start date: 03/18 17:26:00 CDT, Stop date: 03/18/19 17:26:00 CDT Start Date: 03/18/19 Stop Date: 03/18/19 Status: CompletedIsolyte S PH-7.4 (Bolus) IV 1,000 mL, 1,000 ml/hr, Route: IV, ONCE, Dosing Weight 63.5 kg, Start date: 03/18 19:14:00 CDT, Stop date: 03/18/19 19:14:00 CDT Start Date: 03/18/19 Stop Date: 03/18/19 Status: Completedlactulose\\water - enema 200 gm, 300 ml, Route: RI, Drug Form: SYRP, Dosing Weight 76.001, kg, ONCE, Start date: 03/19/19 13:42:00 CDT, Stop date: 03/19/19 13:42:00 CDT, 300 mL lactulose + 700 mL water Notes: (Same as:Chronulac) Start Date: 03/19/19 Stop Date: 03/19/19 Status: Completedlactulose\\water - enema 200 gm, 300 ml, Route: RI, Drug Form: SYRP, Dosing Weight 76.001, kg, ONCE, Start date: 03/19/19 11:34:00 CDT, Stop date: 03/19/19 11:34:00 CDT, 300 mL lactulose + 700 mL water Notes: (Same as:Chronulac) Start Date: 03/19/19 Stop Date: 03/19/19 Status: Completedlactulose\\water - enema 200 gm, 300 ml, Route: RI, Drug Form: SYRP, Dosing Weight 76.001, kg, ONCE, Start date: 03/19/19 12:58:00 CDT, Stop date: 03/19/19 12:58:00 CDT, 300 mL lactulose + 700 mL water Notes: (Same as:Chronulac) Start Date: 03/19/19 Stop Date: 03/19/19 Status: DeletedLantus 100 units/mL 20 unit, 0.2 mL, Route: SUB-Q, Drug form: SOLN, Daily, Dosing Weight 76.001, kg , Start date: 03/19/19 4:00:00 CDT, Duration: 30 day, Stop date: 04/23/19 9:00: 00 CDT Start Date: 03/19/19 Stop Date: 03/27/19 Status: DiscontinuedLantus 100 units/mL 10 unit, 0.1 mL, Route: SUB-Q, Drug form: SOLN, ONCE, Dosing Weight 76.001, kg, Start date: 03/23/1910:24:00 CDT, Stop date: 03/23/19 10:24:00 CDT Start Date: 03/23/19 Stop Date: 03/23/19 Status: Completedlisinopril 20 mg, 1 tab, Route: PO, Drug form: TAB, Daily, Dosing Weight 76.001, kg, Start date: 03/21/19 9:00:00 CDT, Duration: 30 day, Stop date: 04/19/19 9:00:00 CDT Notes: (Same as: Prinivadelia Zestril) Start Date: 03/21/19 Stop Date: 03/25/19 Status: Discontinuedlisinopril 20 mg oral tablet 20 mg=1 tab, PO, Daily, # 30 tab, 0 Refill(s) Start Date: 03/19/19 Stop Date: 03/27/19 Status: DiscontinuedLovenox 40 mg, 0.4 mL, Route: SUB-Q, Drug form: INJ, [id number], Dosing Weight 76.001, kg , Start date: 03/23/19 11:00:00 CDT, Duration: 30 day, Stop date: 04/21/19 11:00 :00 CDT Notes: (Same as: Lovenox) Start Date: 03/23/19 Stop Date: 03/27/19 Status: Discontinuedmelatonin 3 mg, 1 tab, Route: PO, Drug form: TAB, Bedtime, Dosing Weight 76.001, kg, PRN Sleep, Start date: 03/19/19 21:30:00 CDT, Duration: 30 day, Stop date: 04/18/19 21:29:00 CDT Notes: (Same as: Melatonin) Start Date: 03/19/19 Stop Date: 03/27/19 Status: Discontinuedmemantine 5 mg, 1 tab, Route: PO, Drug form: TAB, Q12H, Dosing Weight 76.001, kg, Start date: 03/19/19 11:31:00 CDT, Duration: 30 day, Stop date: 04/18/19 9:00:00 CDT Notes: (Same As: Namenda) Start Date: 03/19/19 Stop Date: 03/27/19 Status: Discontinuedmemantine 10 mg oral tablet 10 mg=1 tab, PO, Daily, # 30 tab, 0 Refill(s) Start Date: 03/19/19 Status: Orderedmetoprolol tartrate 50 mg, 1 tab, Route: PO, Drug form: TAB, BID, Dosing Weight 76.001, kg, Priority : STAT, Start date: 03/19/19 18:55:00 CDT, Duration: 30 day, Stop date: 9:00:00 CDT Notes: (Same as: Lopressor) Start Date: 03/19/19 Stop Date: 03/25/19 Status: Discontinuedmetoprolol tartrate 50 mg oral tablet 50 mg=1 tab, PO, BID, # 180 tab, 0 Refill(s) Start Date: 03/19/19 Stop Date: 03/27/19 Status: Discontinuedmirtazapine 15 mg, 1 tab, Route: PO, Drug form: TAB, Bedtime, Dosing Weight 76.001, kg, Start date: 03/22/19 21:00:00 CDT, Duration: 30 day, Stop date: 04/20/19 21:00: 00 CDT Notes: (Same as:Remeron) Start Date: 03/22/19 Stop Date: 03/27/19 Status: DiscontinuedNS (Bolus) IV 500 mL, 500 ml/hr, Infuse Over: 1 hr, Route: IV, 500, Drug form: INJ, ONCE, Priority: STAT, Dosing Weight 76.001 kg, Start date: 03/25/19 10:11:00 CDT, Stop date: 03/25/19 10:11:00 CDT, 0 Start Date: 03/25/19 Stop Date: 03/25/19 Status: CompletedNS (Bolus) IV 500 mL, 500 ml/hr, Infuse Over: 1 hr, Route: IV, 500, Drug form: INJ, ONCE, Priority: STAT, Dosing Weight 76.001 kg, Start date: 03/26/19 7:30:00 CDT, Stop date: 03/26/19 7:30:00 CDT, 0 Start Date: 03/26/19 Stop Date: 03/26/19 Status: Completedpantoprazole additive 80 mg + Sodium Chloride 0.9% IV 100 mL 100 mL, Rate: 10 ml/hr, Infuse over: 10 hr, Route: IVPB, Dosing Weight 63.5 kg, Total Volume: 100, Infuse at 8 mg/hr for 72 hrs for GI bleeding, Start date: 23:21:00 CDT, Duration: 72 hr, Stopdate: 03/21/19 23:20:00 CDT, 1.76, m2 Notes: For IV push reconstitute with 10 ml 0.9% sodium chloride and push over 2 minutes. (Same as: Protonix) Start Date: 03/18/19 Stop Date: 03/19/19 Status: DiscontinuedPlavix 75 mg, 1 tab, Route: PO, Drug form: TAB, ONCE, Dosing Weight 76.001, kg, Start date: 03/22/19 11:28:00 CDT, Stop date: 03/22/19 11:28:00 CDT Notes: (Same As: Plavix) Start Date: 03/22/19 Stop Date: 03/22/19 Status: CompletedPlavix 75 mg, 1 tab, Route: PO, Drug form: TAB, Daily, Dosing Weight 76.001, kg, Start date: 03/23/19 9:00:00 CDT, Duration: 30 day, Stop date: 04/21/19 9:00:00 CDT Notes: (Same As: Plavix) Start Date: 03/23/19 Stop Date: 03/27/19 Status: DiscontinuedPlavix 75 mg oral tablet 75 mg=1 tab, PO, Daily, # 90 tab, 0 Refill(s) Start Date: 03/19/19 Status: Orderedpotassium chloride 20 mEq, 100 mL, Route: IVPB, Drug form: INJ, Q2H, Dosing Weight 76.001, kg, Total Dose=60 meq, Startdate: 03/21/19 8:00:00 CDT, Duration: 3 doses or times, Stop date: 03/21/19 12:00:00 CDT, Peripheral Line Notes: (Same as: KCL) Infuse no faster than 10 mEq/hr if given peripherally. Start Date: 03/21/19 Stop Date: 03/21/19 Status: Completedpotassium chloride 20 mEq, 1 tab, Route: PO, Drug form: ERTAB, ONCE, Dosing Weight 76.001, kg, Start date: 03/23/19 8:55:00 CDT, Stop date: 03/23/19 8:55:00 CDT Notes: (Same as: K-Dur 20)"Do Not Crush" Give with food and full glass of waterFor patients unable to swallow tablet, dissolve in one half glass of water. Allow about 2 minutes for the tablets to disintegrate. Stir before giving to prepare slurry and administer.Please exclude Patients with feedingtube less than 14 Russian (Dobhoff, J-tube etc) and pediatric and patients. Start Date: 03/23/19 Stop Date: 03/23/19 Status: Discontinuedpotassium chloride 20 mEq, 1 tab, Route: PO, Drug form: ERTAB, ONCE, Dosing Weight 76.001, kg, Start date: 03/22/19 5:32:00 CDT, Stop date: 03/22/19 5:32:00 CDT Notes: (Same as: K-Dur 20)"Do Not Crush" Give with food and full glass of waterFor patients unable to swallow tablet, dissolve in one half glass of water. Allow about 2 minutes for the tablets to disintegrate. Stir before giving to prepare slurry and administer.Please exclude Patients with feedingtube less than 14 Russian (Dobhoff, J-tube etc) and pediatric and patients. Start Date: 03/22/19 Stop Date: 03/22/19 Status: Completedpotassium chloride 20 mEq oral tablet, extended release 40 mEq, 2 tab, Route: PO, Drug form: ERTAB, ONCE, Dosing Weight 76.001, kg, Start date: 03/23/19 6:14:00 CDT, Stop date: 03/23/19 6:14:00 CDT Notes: (Same as: K-Dur 20)"Do Not Crush" Give with food and full glass of waterFor patients unable to swallow tablet, dissolve in one half glass of water. Allow about 2 minutes for the tablets to disintegrate. Stir before giving to prepare slurry and administer.Please exclude Patients with feedingtube less than 14 [place] (Dobhoff, J-tube etc) and pediatric and patients. Start Date: 03/23/19 Stop Date: 03/23/19 Status: Completedpotassium chloride 20 mEq oral tablet, extended release 40 mEq, 2 tab, Route: PO, Drug form: ERTAB, ONCE, Dosing Weight 76.001, kg, Start date: 03/25/19 9:14:00 CDT, Stop date: 03/25/19 9:14:00 CDT, 0 Notes: (Same as: K-Dur 20)"Do Not Crush" Give with food and full glass of waterFor patients unable to swallow tablet, dissolve in one half glass of water. Allow about 2 minutes for the tablets to disintegrate. Stir before giving to prepare slurry and administer.Please exclude Patients with feedingtube less than 14 Russian (Dobhoff, J-tube etc) and pediatric and patients. Start Date: 03/25/19 Stop Date: 03/25/19 Status: Completedpotassium phosphate-sodium phosphate 250 mg-280 mg-160 mg oral powder for reconstitution 2 pkt, Route: PO, Drug Form: PDR/REC, Dosing Weight 76.001, kg, ONCE, Start date : 03/23/19 6:14:00 CDT, Stop date: 03/23/19 6:14:00 CDT Notes: (Same as: Phos-NaK) Each 1.5 gm pkt has 250mg phosphorous. Mix w/2.5oz water and stir. Start Date: 03/23/19 Stop Date: 03/23/19 Status: CompletedProtonix 40 mg, Route: IVP, Drug form: INJ, ONCE, Dosing Weight 63.5, kg, Priority: STAT , Start date: 03/18/19 23:21:00 CDT, Stop date: 03/18/19 23:21:00 CDT Notes: For IV push reconstitute with 10 ml 0.9% sodium chloride and push over 2 minutes. (Same as: Protonix) Start Date: 03/18/19 Stop Date: 03/19/19 Status: CompletedQUEtiapine 25 mg, Route: PO, Drug form: TAB, BID, Dosing Weight 76.001, kg, PRN Agitation, Start date: 03/27/1910:18:00 CDT, Duration: 30 day, Stop date: 04/26/19 10:17: 00 CDT Start Date: 03/27/19 Stop Date: 03/27/19 Status: DiscontinuedSaline Flush 0.9% 10 mL, Route: IVP, Drug Form: INJ, Dosing Weight 63.5, kg, PRN, PRN Line Flush, Start date: 03/18/1917:16:00 CDT, Duration: 30 day, Stop date: 04/17/19 17:15: 00 CDT Start Date: 03/18/19 Stop Date: 03/18/19 Status: DeletedSaline Flush 0.9% 10 mL, Route: IVP, Drug Form: INJ, Dosing Weight 63.5, kg, PRN, PRN Line Flush, Start date: 03/18/1917:15:00 CDT, Duration: 30 day, Stop date: 04/17/19 17:14: 00 CDT Start Date: 03/18/19 Stop Date: 03/27/19 Status: DiscontinuedSEROquel 25 mg, 1 tab, Route: PO, Drug form: TAB, BID, Dosing Weight 76.001, kg, PRN Agitation, Start date: 03/24/19 17:11:00 CDT, Duration: 30 day, Stop date: 04/23 17:10:00 CDT, 0 Notes: (Same as: SEROquel) Start Date: 03/24/19 Stop Date: 03/26/19 Status: Voided With Resultssimvastatin 20 mg, 1 tab, Route: PO, Drug form: TAB, Bedtime, Dosing Weight 76.001, kg, Start date: 03/20/19 21:00:00 CDT, Duration: 30 day, Stop date: 04/18/19 21:00: 00 CDT Notes: (Same as: Zocor) Start Date: 03/20/19 Stop Date: 03/27/19 Status: Discontinuedsimvastatin 20 mg oral tablet 20 mg=1 tab, PO, Bedtime, # 30 tab, 1 Refill(s) Start Date: 03/19/19 Status: Orderedtrazodone 100 mg oral tablet 100 mg=1 tab, PO, Bedtime, # 30 tab, 0 Refill(s) Start Date: 03/19/19 Stop Date: 04/18/19 Status: Orderedtrazodone 100 mg oral tablet 100 mg, 2 tab, Route: PO, Drug form: TAB, Bedtime, Dosing Weight 76.001, kg, Start date: 03/21/19 21:00:00 CDT, Duration: 30 day, Stop date: 04/19/19 21:00: 00 CDT Notes: (Same As: Desyrel) Start Date: 03/21/19 Stop Date: 03/27/19 Status: DiscontinuedTylenol 650 mg, 2 tab, Route: PO, Drug form: TAB, Q6H, Dosing Weight 76.001, kg, PRN Pain 1-3/Temp > 100.4 F, Start date: 03/19/19 19:39:00 CDT, Duration: 30 day , Stop date: 04/18/19 19:38:00 CDT Notes: Do not exceed 4 gm/day. (Same as: Tylenol) Start Date: 03/19/19 Stop Date: 03/27/19 Status: Discontinuedvancomycin 1.25 gm, 250 mL, Route: IVPB, Drug form: INJ, [id number], Start date: 03/20/19 2:00 :00 CDT, Duration: 30 day, Stop date: 04/18/19 14:00:00 CDT, ABX Indication: Intra-abdominal Infection Notes: TIME CRITICAL MEDICATIONSame as: Vancocin-NS (premixed)Infusion rate< 1000 mg: infuse over1 [id number] - 1500 mg: infuse over 1.5 [id number] - 2000 mg: infuse over 2 hours> 2001 mg: infuse over 2.5 hours Start Date: 03/20/19 Stop Date: 03/21/19 Status: Discontinuedvancomycin 1.5 gm, 250 mL, Route: IVPB, Drug form: INJ, ONCE, Dosing Weight 63.5, kg, Priority: STAT, Start date: 03/18/19 17:13:00 CDT, Stop date: 03/18/19 17:13:00 CDT, ABX Indication: ED - Suspected Sepsis Notes: TIME CRITICAL MEDICATIONSame as: Vancocin-NS (premixed)Infusion rate< 1000 mg: infuse over1 [id number] - 1500 mg: infuse over 1.5 [id number] - 2000 mg: infuse over 2 hours> 2001 mg: infuse over 2.5 hours Start Date: 03/18/19 Stop Date: 03/18/19 Status: Completedvancomycin + Sodium Chloride 0.9% IV 250 mL 1.75 gm, Route: IVPB, [id number], Start date: 03/21/19 5:00:00 CDT, Duration: 30 day, Stop date: 04/19/19 17:00:00 CDT, ABX Indication: Intra-abdominal Infection Notes: TIME CRITICAL MEDICATION(Same As: Vancocin)Infusion rate< 1000 mg: infuse over 1 [id number] - 1500 mg: infuse over 1.5 hoursVancomycin FOR IV SET [id number] - 2000 mg: infuse over 2 hours>2001 mg: infuse over 2.5 hoursFor adult patients only: Round to nearest 250 mg per Medical Staff approval MEDICATION WASTE Product Size: 1000 mgProduct Wasted: 250 mg Start Date: 03/21/19 Stop Date: 03/22/19 Status: DiscontinuedZyPREXA 5 mg, 1 tab, Route: PO, Drug form: TAB, BID, Dosing Weight 76.001, kg, PRN Agitation, Start date: 03/26/19 13:55:00 CDT, Duration: 30 day, Stop date: 04/25 13:54:00 CDT, 0 Notes: (Same as: ZyPREXA) Start Date: 03/26/19 Stop Date: 03/27/19 Status: DiscontinuedZyPREXA 5 mg, 1 tab, Route: PO, Drug form: TAB, Bedtime, Dosing Weight 76.001, kg, Start date: 03/26/19 21:00:00 CDT, Duration: 30 day, Stop date: 04/24/19 21:00: 00 CDT, 0 Notes: (Same as: ZyPREXA) Start Date: 03/26/19 Stop Date: 03/27/19 Status: Discontinued Results Most recent to oldest 1 2 3 [Reference Range]: Procalcitonin Lvl [0.00-0.10 21.07 ng/mL 1 ng/mL] *CRIT* (03/18/19 5:56 PM) Neutrophils # [1.5-8.1 3.8 K/CMM 3.3 K/CMM 4.6 K/CMM K/CMM] (03/25/19 6:08 AM) (03/24/19 5:07 AM) (03/23/19 4:29 AM) Lymphocytes # [1.0-5.5 1.3 K/CMM 1.1 K/CMM 1.2 K/CMM K/CMM] (03/25/19 6:08 AM) (03/24/19 5:07 AM) (03/23/19 4:29 AM) Monocytes # [0.0-0.8 K/CMM] 1.1 K/CMM 1.0 K/CMM 1.3 K/CMM *HI* *HI* *HI* (03/25/19 6:08 AM) (03/24/19 5:07 AM) (03/23/19 4:29 AM) Eosinophils # [0.0-0.5 0.1 K/CMM 0.2 K/CMM 0.1 K/CMM K/CMM] (03/25/19 6:08 AM) (03/24/19 5:07 AM) (03/23/19 4:29 AM) Basophils # [0.0-0.2 K/CMM] 0.1 K/CMM (03/21/19 1:44 AM) Vanco Tr TND 0130 *NA* (03/21/19 1:44 AM) Vanco Tr 7.9 ug/ml *NA* (03/21/19 1:44 AM) Fecal Leukocyte None Seen (03/20/19 12:16 AM) Bili Indirect [0.0-1.0 0.6 mg/dL mg/dL] (03/18/19 5:00 PM) G-value Rapid [5.0-11.6 K 12.0 K d/sc d/sc] *HI* (03/18/19 5:00 PM) K-time Rapid [0.6-2.3 1.1 minutes minutes] (03/18/19 5:00 PM) Max Amplitude Rapid [52-71 71 mm mm] (03/18/19 5:00 PM) R-time Rapid [0.4-0.7 0.7 minutes minutes] (03/18/19 5:00 PM) Angle Rapid [64-80 degrees] 77 degrees (03/18/19 5:00 PM) eGFR 73 mL/min/1.73m2 2 83 mL/min/1.73m2 3 85 mL/min/1.73m2 4 *NA* *NA* *NA* (03/25/19 6:08 AM) (03/24/19 5:07 AM) (03/23/19 4:29 AM) ABO/Rh B POS *Unknown* (03/18/19 5:00 PM) UDS Note See Note (03/18/19 6:39 PM) A/G Ratio [0.7-1.6] 1.0 0.9 0.8 (03/22/19 3:56 AM) (03/21/19 1:44 AM) (03/20/19 2:22 AM) Antibody Scrn Negative (03/18/19 5:00 PM) Albumin Lvl [3.5-5.0 g/dL] 2.3 g/dL 2.6 g/dL 2.6 g/dL *LOW* *LOW* *LOW* (03/22/19 3:56 AM) (03/21/19 1:44 AM) (03/20/19 2:22 AM) Alk Phos [39-136 unit/L] 56 unit/L 76 unit/L 75 unit/L (03/22/19 3:56 AM) (03/21/19 1:44 AM) (03/20/19 2:22 AM) ALT [0-65 unit/L] 19 unit/L 25 unit/L 23 unit/L (03/22/19 3:56 AM) (03/21/19 1:44 AM) (03/20/19 2:22 AM) U Amph Scr [Negative] Negative *NA* (03/18/19 6:39 PM) AGAP [10.0-20.0 mEq/L] 10.4 mEq/L 9.6 mEq/L 18.4 mEq/L (03/25/19 6:08 AM) *LOW* (03/23/19 4:29 AM) (03/24/19 5:07 AM) AST [0-37 unit/L] 38 unit/L 70 unit/L 53 unit/L *HI* *HI* *HI* (03/22/19 3:56 AM) (03/21/19 1:44 AM) (03/20/19 2:22 AM) B/C Ratio [6-25] 20 17 27 (03/22/19 3:56 AM) (03/21/19 1:44 AM) *HI* (03/20/19 2:22 AM) U Ruth Scr [Negative] Negative *NA* (03/18/19 6:39 PM) Basophils [0.0-1.0 %] 0.6 % 0.6 % 0.5 % (03/25/19 6:08 AM) (03/24/19 5:07 AM) (03/23/19 4:29 AM) U Benzodiaz Scr [Negative] Negative *NA* (03/18/19 6:39 PM) BUN [7-22 mg/dL] 20 mg/dL 16 mg/dL 16 mg/dL (03/25/19 6:08 AM) (03/24/19 5:07 AM) (03/23/19 4:29 AM) Calcium Lvl [8.5-10.5 mg/dL] 8.2 mg/dL 8.3 mg/dL 8.5 mg/dL *LOW* *LOW* (03/23/19 4:29 AM) (03/25/19 6:08 AM) (03/24/19 5:07 AM) Total CK [12-191 unit/L] 56 unit/L 1302 unit/L 3495 unit/L (03/25/19 6:08 AM) *HI* *HI* (03/21/19 11:07 AM) (03/18/19 5:00 PM) Chloride Lvl [95-109 mEq/L] 107 mEq/L 110 mEq/L 107 mEq/L (03/25/19 6:08 AM) *HI* (03/23/19 4:29 AM) (03/24/19 5:07 AM) CO2 [24-32 mEq/L] 27 mEq/L 27 mEq/L 20 mEq/L (03/25/19 6:08 AM) (03/24/19 5:07 AM) *LOW* (03/23/19 4:29 AM) U Cocaine Scr [Negative] Negative *NA* (03/18/19 6:39 PM) Creatinine Lvl [0.50-1.40 0.98 mg/dL 0.84 mg/dL 0.81 mg/dL mg/dL] (03/25/19 6:08 AM) (03/24/19 5:07 AM) (03/23/19 4:29 AM) Bili Direct [0.0-0.3 mg/dL] 0.1 mg/dL (03/18/19 5:00 PM) Eosinophils [0.0-4.0 %] 2.4 % 4.1 % 1.6 % (03/25/19 6:08 AM) *HI* (03/23/19 4:29 AM) (03/24/19 5:07 AM) Globulin [2.7-4.2 g/dL] 2.4 g/dL 2.8 g/dL 3.1 g/dL *LOW* (03/21/19 1:44 AM) (03/20/19 2:22 AM) (03/22/19 3:56 AM) Glucose Lvl [70-99 mg/dL] 183 mg/dL 142 mg/dL 251 mg/dL *HI* *HI* *HI* (03/25/19 6:08 AM) (03/24/19 5:07 AM) (03/23/19 4:29 AM) Hct [42.0-54.0 %] 32.0 % 33.7 % 34.1 % *LOW* *LOW* *LOW* (03/25/19 6:08 AM) (03/24/19 5:07 AM) (03/23/19 4:29 AM) Hgb [14.0-18.0 g/dL] 11.5 g/dL 11.8 g/dL 11.8 g/dL *LOW* *LOW* *LOW* (03/25/19 6:08 AM) (03/24/19 5:07 AM) (03/23/19 4:29 AM) INR [0.85-1.17] 1.53 *HI* (03/18/19 5:00 PM) Potassium Lvl [3.5-5.1 3.4 mEq/L 3.6 mEq/L 3.4 mEq/L mEq/L] *LOW* (03/24/19 5:07 AM) *LOW* (03/25/19 6:08 AM) (03/23/19 4:29 AM) Lactic Acid Lvl [0.5-2.2 2.0 mMol/L 2.4 mMol/L 2.3 mMol/L mMol/L] (03/19/19 6:15 PM) *HI* *HI* (03/19/19 1:45 PM) (03/19/19 8:25 AM) Lipase Lvl [73-393 unit/L] 36 unit/L *LOW* (03/18/19 5:56 PM) Lymphocytes [20.0-40.0 %] 20.6 % 18.8 % 16.5 % (03/25/19 6:08 AM) *LOW* *LOW* (03/24/19 5:07 AM) (03/23/19 4:29 AM) MCH [27.0-31.0 pg] 34.2 pg 33.9 pg 33.7 pg *HI* *HI* *HI* (03/25/19 6:08 AM) (03/24/19 5:07 AM) (03/23/19 4:29 AM) MCHC [32.0-36.0 g/dL] 35.8 g/dL 34.9 g/dL 34.7 g/dL (03/25/19 6:08 AM) (03/24/19 5:07 AM) (03/23/19 4:29 AM) MCV [80.0-94.0 fL] 95.5 fL 97.3 fL 97.1 fL *HI* *HI* *HI* (03/25/19 6:08 AM) (03/24/19 5:07 AM) (03/23/19 4:29 AM) Magnesium Lvl [1.8-2.4 1.8 mg/dL 1.8 mg/dL mg/dL] (03/24/19 5:07 AM) (03/23/19 4:29 AM) Monocytes [2.0-12.0 %] 16.8 % 17.7 % 17.4 % *HI* *HI* *HI* (03/25/19 6:08 AM) (03/24/19 5:07 AM) (03/23/19 4:29 AM) MPV [7.4-10.4 fL] 8.9 fL 8.8 fL 8.6 fL (03/25/19 6:08 AM) (03/24/19 5:07 AM) (03/23/19 4:29 AM) Sodium Lvl [135-145 mEq/L] 141 mEq/L 143 mEq/L 142 mEq/L (03/25/19 6:08 AM) (03/24/19 5:07 AM) (03/23/19 4:29 AM) U Opiate Scr [Negative] Positive *ABN* (03/18/19 6:39 PM) U Phencyclidine Scr Negative [Negative] *NA* (03/18/19 6:39 PM) Phosphorus [2.5-4.5 mg/dL] 2.6 mg/dL 2.1 mg/dL (03/24/19 5:07 AM) *LOW* (03/23/19 4:29 AM) Platelet [133-450 K/CMM] 175 K/CMM 165 K/CMM 149 K/CMM (03/25/19 6:08 AM) (03/24/19 5:07 AM) (03/23/19 4:29 AM) Segs [45.0-75.0 %] 59.6 % 58.8 % 64.0 % (03/25/19 6:08 AM) (03/24/19 5:07 AM) (03/23/19 4:29 AM) Total Protein [6.4-8.4 g/dL] 4.7 g/dL 5.4 g/dL 5.7 g/dL *LOW* *LOW* *LOW* (03/22/19 3:56 AM) (03/21/19 1:44 AM) (03/20/19 2:22 AM) PT [12.0-14.7 seconds] 18.1 seconds *HI* (03/18/19 5:00 PM) PTT [22.9-35.8 seconds] 37.5 seconds *HI* (03/18/19 5:00 PM) RBC [4.70-6.10 M/CMM] 3.36 M/CMM 3.47 M/CMM 3.51 M/CMM *LOW* *LOW* *LOW* (03/25/19 6:08 AM) (03/24/19 5:07 AM) (03/23/19 4:29 AM) RDW [11.5-14.5 %] 12.6 % 13.3 % 12.9 % (03/25/19 6:08 AM) (03/24/19 5:07 AM) (03/23/19 4:29 AM) Shiga Toxin [Negative] Negative (03/20/19 12:16 AM) Bili Total [0.2-1.3 mg/dL] 0.7 mg/dL 1.0 mg/dL 0.7 mg/dL (03/22/19 3:56 AM) (03/21/19 1:44 AM) (03/20/19 2:22 AM) U Cannab Scr [Negative] Negative (03/18/19 6:39 PM) Troponin-I [0.00-0.40 ng/mL] 0.32 ng/mL 0.30 ng/mL 0.32 ng/mL (03/20/19 5:00 AM) (03/20/19 2:22 AM) (03/19/19 9:47 PM) UA Amorph Marisela [None Seen Occasional /HPF /HPF] *ABN* (03/18/19 6:39 PM) UA Bacteria [None Seen /HPF] Few /HPF (03/18/19 6:39 PM) UA Bili [Negative] Negative *NA* (03/18/19 6:39 PM) UA Blood [Negative] Large *ABN* (03/18/19 6:39 PM) UA Color [Yellow] Yellow *NA* (03/18/19 6:39 PM) UA Glucose [Negative mg/dL] >=1000 mg/dL *ABN* (03/18/19 6:39 PM) UA Ketones [Negative mg/dL] 15 mg/dL *ABN* (03/18/19 6:39 PM) UA Leuk Est [Negative] Negative (03/18/19 6:39 PM) UA Mucus [None Seen /LPF] Rare /LPF (03/18/19 6:39 PM) UA Nitrite [Negative] Negative (03/18/19 6:39 PM) UA pH [5.0-8.0] 5.0 (03/18/19 6:39 PM) UA Protein [Negative] Trace *ABN* (03/18/19 6:39 PM) UA RBC [0-2 /HPF] 3-5 /HPF *ABN* (03/18/19 6:39 PM) UA Spec Grav [<=1.030] 1.020 (03/18/19 6:39 PM) UA Sq Epi [Few] None Seen (03/18/19 6:39 PM) UA Turbidity [Clear] Clear (03/18/19 6:39 PM) UA Urobilinogen [0.1-1.0 0.2 EU/dL EU/dL] (03/18/19 6:39 PM) UA WBC [None Seen /HPF] 0-2 /HPF (03/18/19 6:39 PM) Vanco Lvl 2.9 ug/ml *NA* (03/19/19 9:47 PM) WBC [3.7-10.4 K/CMM] 6.3 K/CMM 5.6 K/CMM 7.2 K/CMM (03/25/19 6:08 AM) (03/24/19 5:07 AM) (03/23/19 4:29 AM) ACT (TEG) Rapid [86-118 113 seconds seconds] (03/18/19 5:00 PM) Estimated % Lysis Rapid 0.0 % [0.0-7.5 %] (03/18/19 5:00 PM) Split Point Rapid 0.6 minutes *NA* (03/18/19 5:00 PM) Ca Ion WB [1.05-1.25 mMol/L] 1.07 mMol/L (03/23/19 4:29 AM) Ca Norm WB [1.05-1.25 1.07 mMol/L mMol/L] (03/23/19 4:29 AM) 1Result Comment: Critical Result(s) called to MILAN MOSES at 03/18/2019 20: 51 by GEORGES. Read back OK.2Result Comment: The eGFR is calculated using the CKD- EPI formula. In most young, healthy individualsthe eGFR will be >90 mL/min/ 1.73m2. The eGFR declines with age. An eGFR of 60-89 may be normal insome populations, particularly the elderly, for whom the CKD-EPI formula has not been extensively validated. Use of the eGFR is not recommended in the following populations: Individuals with unstable creatinine concentrations, including patients and those with serious co-morbid conditions. Patients with extremes in muscle mass or diet. The data above are obtained from the National Kidney Disease Education Program ( NKDEP) which additionally recommends that when the eGFR is used in patients with extremes of body mass index for purposesof drug dosing, the eGFR should be multiplied by the estimated BMI.3Result Comment: The eGFR is calculated using the CKD-EPI formula. In most young, healthy individualsthe eGFR will be >90 mL/min/1.73m2. The eGFR declines with age. An eGFR of 60-89 may be normal insome populations, particularly the elderly, for whom the CKD-EPI formula has not been extensively validated. Use of the eGFR is not recommended in the following populations: Individuals with unstable creatinine concentrations, including patients and those with serious co-morbid conditions. Patients with extremes in muscle mass or diet. The data above are obtained from the National Kidney Disease Education Program ( NKDEP) which additionally recommends that when the eGFR is used in patients with extremes of body mass index for purposesof drug dosing, the eGFR should be multiplied by the estimated BMI.4Result Comment: The eGFR is calculated using the CKD-EPI formula. In most young, healthy individualsthe eGFR will be >90 mL/min/1.73m2. The eGFR declines with age. An eGFR of 60-89 may be normal insome populations, particularly the elderly, for whom the CKD-EPI formula has not been extensively validated. Use of the eGFR is not recommended in the following populations: Individuals with unstable creatinine concentrations, including patients and those with serious co-morbid conditions. Patients with extremes in muscle mass or diet. The data above are obtained from the National Kidney Disease Education Program ( NKDEP) which additionally recommends that when the eGFR is used in patients with extremes of body mass index for purposesof drug dosing, the eGFR should be multiplied by the estimated BMI.Microbiology Reports TEST:Culture: Stool STATUS:Auth (Verified) BODY SITE: SOURCE:Stool COLLECTED DATE/TIME:03/20/19 12:16 AMFINAL REPORTNormal Enteric Kirti Isolated No Salmonella, Shigella, Or Campylobacter Isolated Immunizations No data available for this section Procedures No data available for this section Social History Social History Type Response Smoking Status Never smoker; Exposure to Tobacco Smoke None; Cigarette Smoking Last 365 Days No; Reg Smoking Cessation Counseling Yes entered on: 03/20/19 Assessment and Plan Extracted from: Title: Progress Note Author: Justin Mahajan MD Date: 03/26/19 1.Ischemic colitis(K52.9) Stable. Tolerating diet,Plavix 2.Acute blood loss anemia(D62) H&h stable. No need for transfusion. 3.Rhabdomyolysis(M62.82) Resolved 4.CAD (coronary artery disease)(I25.10) Continue Plavix, metoprolol ER and simvastatin. 5.Alzheimer's dementia(G30.9) Continue memantine and galantamine. Start PRNSeroquelchanged to zyprexafor agitation. Continue frequent reorientation. Pt gets restless [...] d/c. Will d/w regarding further plans. Extracted from: Title: Cardiology Consult Note Author: Akshat Bucio MD Date: 03/20/19 Patient is a 78 yo M with hx of CAD s/p CABG in 2001, HLD, dementia who was admitted for ischemic colitis and hematochezia. [facility] He's s/p sigmoidoscopy and now under conservative [...] assessment and plan. Renata Bush MD Extracted from: Title: History and Physical Author: Ashu Smyth MD [...] Will start on about half the dose [id number] units Hold lispro Sliding scale insulin Sugar goal 1 40-1 80 13.Pulmonary nodule(R91.1) Outpatient follow-up updated scd bc bloody diarrhea pending improvement
[2019-04-05 15:31] LABS: Basophils % 0.8 % (0-1.3); Hematocrit 33.4 % (39.6-49.0); Lymphocytes % 14.4 % (15.3-44.8); MPV 8.2 fL (7.6-11.3); Monocytes % 10.9 % (3.3-12.3); RBC Red Blood Cell Count 3.43 M/uL (4.33-5.43)
[2019-04-05 15:34] LABS: Protime INR 1.27
[2019-04-05] MEDS ORDERED: FOLIC ACID 5 MG/ML VIAL ONE (15:46)
[2019-04-05] MEDS ORDERED: NA CHLORIDE 0.9% 500 ML ONE (15:46)
[2019-04-05 15:56] LABS: ALT/SGPT 13 U/L (12-78); AST/SGOT 14 U/L (15-37); Albumin 2.7 g/dL (3.4-5.0); Alkaline Phosphatase 95 U/L (45-117); BUN Blood Urea Nitrogen 8 mg/dL (7-18); Bicarbonate 30 mmol/L (21-32); Bilirubin Direct < 0.1 mg/dL (0-0.2); Bilirubin Total 0.2 mg/dL (0.2-1.0); Glucose Level 76 mg/dL (74-106); Magnesium 1.8 mg/dL (1.8-2.4); NT PRO-BNP 562 pg/mL (<450); Potassium 3.1 mmol/L (3.5-5.1); Protein, Total 5.9 g/dL (6.4-8.2); Sodium Level 146 mmol/L (136-145); Thyroid Stimulating Hormone 0.865 uIU/mL (0.360-3.740); Troponin (Emerg Dept Use Only) < 0.02 ng/mL (0.0-0.045)
[2019-04-05] MEDS ORDERED: CYANOCOBALAMIN 1000MCG/ML INJ IM SCH (16:00)
--- NOTE | 2019-04-05 16:31 | RAD REPORT ---
EXAM DESCRIPTION: RAD - Chest Single View - 04/05/2019 4:04 pm CLINICAL HISTORY: Weakness, shortness of breath, altered mental status COMPARISON: March 18 TECHNIQUE: AP portable chest image was obtained 1542 hour . FINDINGS: Lung volumes are low. Interstitial pattern is prominent but not clearly different. Mild ed jaspal or infiltrate could be masked in this setting. No mass or consolidation. Sternotomy wires are in place. Heart and vasculature are normal. No measurable pleural effusion and no pneumothorax. No acute bony abnormality seen. No acute aortic findings suspected. IMPRESSION: No acute cardiopulmonary process. Lung markings are prominent but not clearly different from comparison.
[2019-04-05] MEDS ORDERED: POTASSIUM 25 MEQ EFFERV TAB ONE (16:53)
--- NOTE | 2019-04-05 17:53 | ER ---
Nurse's Notes [facility] Name: Edward Ambrosio Age: 78 yrs Sex: Male : 1940 Arrival Date: 04/05/2019 Time: 15:01 Bed 2 Private MD: Diagnosis: Hypoglycemia, unspecified;Hypokalemia;Volume depletion Presentation: 04/05 15:07 Presenting complaint: EMS states: Low blood sugar at home with a reading fo 28 per aj family. Gave soda and food. EMS reports FSBS of 50 upon arrival, administered 1 gm oral glucose. Family reports patient is more altered than normal. Transition of care: patient was not received from another setting of care. Onset of symptoms was April 05, 2019. Risk Assessment: Do you want to hurt yourself or someone else? Patient reports no desire to harm self or others. Initial Sepsis Screen: Does the patient meet any 2 criteria? No. Patient's initial sepsis screen is negative. Does the patient have a suspected source of infection? No. Patient's initial sepsis screen is negative. Care prior to arrival: Medication(s) given: Normal saline infusion, 50 ml Oral glucose 1 GM IV initiated. 22 GA, in the right antecubital area, Glucose check: 50. 15:07 Method Of Arrival: EMS: [facility] aj 15:07 Acuity: MAO 2 aj Triage Assessment: 15:11 General: Appears in no apparent distress. comfortable, Behavior is calm, cooperative, aj appropriate for age. Pain: Denies pain. Neuro: Level of Consciousness is awake, obeys commands, confused, Oriented to person, Appropriate for age Eyelet Maker are equal bilaterally Moves all extremities. Weakness Speech is normal, Facial symmetry appears normal, Intact. Respiratory: Airway is patent Respiratory effort is even, unlabored, Respiratory pattern is regular, symmetrical. Derm: Skin is intact, is healthy with good turgor, Skin is pink, warm \T\ dry. normal. Historical: - Allergies: 15:11 PENICILLINS; aj - Home Meds: 15:11 amlodipine 5 mg tab 1 tab once daily [Active]; clopidogrel 75 mg Oral tab 1 tab once aj daily [Active]; cyanocobalamin (vitamin B-12) 1,000 mcg Oral tab [Active]; galantamine 24 mg Oral C24P 1 cap once daily [Active]; lisinopril 20 mg Oral tab 1 tab once daily [Active]; memantine 10 mg Oral tab 1 tab 2 times per day [Active]; metoprolol tartrate 50 mg Oral tab 1 tab 2 times per day [Active]; ranitidine HCl 150 mg Oral cap 1 cap 2 times per day [Active]; simvastatin 20 mg Oral tab 1 tab once daily [Active]; trazodone 100 mg Oral tab 1 tab nightly [Active]; insulin [Active]; - PMHx: 15:11 Alzheimers; Diabetes - IDDM; Hyperlipidemia; Hypertension; aj - 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 - Social history:: Smoking status: Patient/guardian denies using tobacco. - Ebola Screening: : Patient negative for fever greater than or equal to 101.5 degrees Fahrenheit, and additional compatible Ebola Virus Disease symptoms Patient denies exposure to infectious person Patient denies travel to an Ebola-affected area in the 21 days before illness onset No symptoms or risks identified at this time. Screenin:14 Abuse screen: Denies threats or abuse. Denies injuries from another. Nutritional aj screening: No deficits noted. Tuberculosis screening: No symptoms or risk factors identified. Fall Risk None identified. Assessment: 15:15 Reassessment: No changes from previously documented assessment. aj 17:00 Reassessment: Patient appears in no apparent distress at this time. No changes from aj previously documented assessment. Patient and/or family updated on plan of care and expected duration. Pain level reassessed. Patient is awake and alert WNL for patient. To person. Patient has 2 family members at bedside. Patient denies pain at this time. Vital Signs: 15:11 BP 112 / 45; Pulse 70; Resp 17; Temp 97.9; Pulse Ox 97% on R/A; Weight 79.38 kg; Height aj 5 ft. 10 in. (177.80 cm); 16:12 BP 159 / 62; Pulse 71; Resp 14; Pulse Ox 98% on R/A; aj 17:25 BP 160 / 63; Pulse 74; Resp 17; Pulse Ox 98% on R/A; aj 15:11 Body Mass Index 25.11 (79.38 kg, 177.80 cm) aj ED Course: 15:01 Patient arrived in ED. iw 15:06 [facility]-C [facility]. snw 15:06 Maribell Alonzo MD is Attending Physician. snw 15:07 Deja David RN is Primary Nurse. aj 15:09 Triage completed. aj 15:11 Arm band placed on right wrist. Patient placed in a hallway bed, on a stretcher, on aj campaign worker, on pulse oximetry. 15:14 Patient has correct armband on for positive identification. Placed in gown. Bed in low aj position. Side rails up X2. Adult w/ patient. hunting sales leader on. Pulse ox on. NIBP on. 15:14 Maintain EMS IV. Gauge \T\ site: 20 to right AC. Flushed right antecubital. aj 16:05 XRAY Chest (1 view) In Process Unspecified. EDMS 18:40 No provider procedures requiring assistance completed. IV discontinued, intact, aj bleeding controlled, No redness/swelling at site. Pressure dressing applied. Administered Medications: 15:33 Drug: foLIC Acid 1 mg Route: IVPB; Site: right antecubital; aj 16:11 Follow up: Response: No adverse reaction; IV Status: Completed infusion; IV Intake: aj 0.2ml 15:34 Drug: NS 0.9% 500 ml Route: IV; Rate: 50 ml/hr; Site: right antecubital; aj 18:39 Follow up: Response: No adverse reaction; IV Status: Completed infusion; IV Intake: 50mlaj 16:11 Drug: Cyanocobalamin 1000 mcg Route: IM; Site: right deltoid; aj 16:55 Follow up: Response: No adverse reaction aj 16:42 Drug: NS 0.9% 500 ml Route: IV; Rate: bolus; Site: right antecubital; aj 18:39 Follow up: Response: No adverse reaction; IV Status: Completed infusion; IV Intake: aj 500ml 16:50 Drug: Potassium Effervescent Tablet 50 mEq Route: PO; aj 18:39 Follow up: Response: No adverse reaction aj Point of Care Testing: Blood Glucose: 15:11 Blood Glucose: 91 mg/dL; aj 16:12 Blood Glucose: 139 mg/dL; aj 17:49 Blood Glucose: 146 mg/dL; aj Ranges: Intake: 16:11 IV: 0ml; Total: 0ml. aj 18:39 IV: 500ml; Total: 500ml. aj 18:39 IV: 50ml; Total: 550ml. bob Outcome: 17:52 Discharge ordered by . janene 18:40 Discharged to home with family. bob 18:40 Condition: good 18:40 Discharge instructions given to family, Instructed on discharge instructions, follow up and referral plans. Demonstrated understanding of instructions, follow-up care. 18:41 Patient left the ED. bob Signatures: Dispatcher [employer] Deja Yoo, RN RN Harriet Corral, GREENHOUSE MANAGER-C GREENHOUSE MANAGER-[employer] Evelia Warren, RN RN iw
--- NOTE | 2019-04-05 17:53 | EDPHYS ---
Physician Documentation [facility] Name: Edward Ambrosio Age: 78 yrs Sex: Male : 1940 Arrival Date: 04/05/2019 Time: 15:01 Bed 2 Private MD: ED Physician Maribell Alonzo HPI: 04/05 15:36 This 78 yrs old Male presents to ER via EMS with complaints of low blood snw sugar/weakness. 15:36 Pt with FSBS of 27 post lunch, Spouse gave two sodas and a piece of a candy bar. EMS snw arrived and gave pt Glucose.. Onset: The symptoms/episode began/occurred suddenly. Severity of symptoms: At their worst the symptoms were severe. It is unknown whether or not the patient has had similar symptoms in the past. one month ago pt was admitted at [facility] for 9 days with GIB. Historical: - Allergies: 15:11 PENICILLINS; aj - Home Meds: 15:11 amlodipine 5 mg tab 1 tab once daily [Active]; clopidogrel 75 mg Oral tab 1 tab once aj daily [Active]; cyanocobalamin (vitamin B-12) 1,000 mcg Oral tab [Active]; galantamine 24 mg Oral C24P 1 cap once daily [Active]; lisinopril 20 mg Oral tab 1 tab once daily [Active]; memantine 10 mg Oral tab 1 tab 2 times per day [Active]; metoprolol tartrate 50 mg Oral tab 1 tab 2 times per day [Active]; ranitidine HCl 150 mg Oral cap 1 cap 2 times per day [Active]; simvastatin 20 mg Oral tab 1 tab once daily [Active]; trazodone 100 mg Oral tab 1 tab nightly [Active]; insulin [Active]; - PMHx: 15:11 Alzheimers; Diabetes - IDDM; Hyperlipidemia; Hypertension; aj - 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 - Social history:: Smoking status: Patient/guardian denies using tobacco. - Ebola Screening: : Patient negative for fever greater than or equal to 101.5 degrees Fahrenheit, and additional compatible Ebola Virus Disease symptoms Patient denies exposure to infectious person Patient denies travel to an Ebola-affected area in the 21 days before illness onset No symptoms or risks identified at this time. ROS: 15:36 Eyes: Negative for injury, pain, redness, and discharge, ENT: Negative for injury, snw pain, and discharge, Neck: Negative for injury, pain, and swelling, Cardiovascular: Negative for chest pain, palpitations, and edema, Respiratory: Negative for shortness of breath, cough, wheezing, and pleuritic chest pain, Abdomen/GI: Negative for abdominal pain, nausea, vomiting, diarrhea, and constipation, Back: Negative for injury and pain, : Negative for injury, bleeding, discharge, and swelling, MS/Extremity: Negative for injury and deformity, Skin: Negative for injury, rash, and discoloration, Neuro: Negative for headache, numbness, tingling, and seizure, Positive for weakness and confusion 15:36 Constitutional: Positive for fatigue, malaise. Exam: 15:36 Head/Face: Normocephalic, atraumatic. ENT: Nares patent. No nasal discharge, no snw septal abnormalities noted. Tympanic membranes are normal and external auditory canals are clear. Oropharynx with no redness, swelling, or masses, exudates, or evidence of obstruction, uvula midline. Mucous membranes moist. Neck: Trachea midline, no thyromegaly or masses palpated, and no cervical lymphadenopathy. Supple, full range of motion without nuchal rigidity, or vertebral point tenderness. No Meningismus. Chest/axilla: Normal chest wall appearance and motion. Nontender with no deformity. No lesions are appreciated. 15:36 Cardiovascular: Regular rate and rhythm with a normal S1 and S2. No gallops, murmurs, or rubs. Normal PMI, no JVD. No pulse deficits. Respiratory: Lungs have equal breath sounds bilaterally, clear to auscultation and percussion. No rales, rhonchi or wheezes noted. No increased work of breathing, no retractions or nasal flaring. Abdomen/GI: Soft, non-tender, with normal bowel sounds. No distension or tympany. No guarding or rebound. No evidence of tenderness throughout. Back: No spinal tenderness. No costovertebral tenderness. Full range of motion. MS/ Extremity: Pulses equal, no cyanosis. Neurovascular intact. Full, normal range of motion. Neuro: Awake and alert, GCS 15, oriented to person, place, time, and situation. Cranial nerves II-XII grossly intact. Motor strength 5/5 in all extremities. Sensory grossly intact. Cerebellar exam normal. Normal gait. Psych: Awake, alert, with orientation to person, place and time. Behavior, mood, and affect are within normal limits. 15:36 Neuro: Awake and alert, GCS 15, oriented to person, place, time, and situation. Cranial nerves II-XII grossly intact. Motor strength 5/5 in all extremities. Sensory grossly intact. Cerebellar exam normal. Gait not tested. Pt is at baseline of the past month which is less active/strong than baseline before his last hospitalization 03/18/19 15:36 Constitutional: The patient appears alert, frail, pale, pleasantly confused, hx of dementia 15:36 Eyes: Conjunctiva: pale, bilaterally. 15:36 Skin: Appearance: Color: pale. Vital Signs: 15:11 BP 112 / 45; Pulse 70; Resp 17; Temp 97.9; Pulse Ox 97% on R/A; Weight 79.38 kg; Height aj 5 ft. 10 in. (177.80 cm); 16:12 BP 159 / 62; Pulse 71; Resp 14; Pulse Ox 98% on R/A; aj 17:25 BP 160 / 63; Pulse 74; Resp 17; Pulse Ox 98% on R/A; aj 15:11 Body Mass Index 25.11 (79.38 kg, 177.80 cm) aj MDM: 15:06 Patient medically screened. snw 17:53 Data reviewed: vital signs, nurses notes. Data interpreted: Pulse oximetry: on room air snw is 98 %. Interpretation: normal. Counseling: I had a detailed discussion with the patient and/or guardian regarding: the historical points, exam findings, and any diagnostic results supporting the discharge/admit diagnosis, the presence of at least one elevated blood pressure reading (>120/80) during this emergency department visit, lab results, radiology results, the need for outpatient follow up, for definitive care, to return to the emergency department if symptoms worsen or persist or if there are any questions or concerns that arise at home. Special discussion: Based on the history and exam findings, there is no indication for further emergent testing or inpatient evaluation. I discussed with the patient/guardian the need to see the primary care provider for further evaluation of the symptoms. 18:45 ED course: [facility] and has multiple appointments scheduled over the coming snw week. Pt had decompensated post recent hospitalization and Son is concerned about the physical strain on his Mom. I suggest that OT be requested for help with ADLs, home health, etc. Pt's dementia is significantly more disabling since illness last month.. 04/05 15:15 Order name: Basic Metabolic Panel; Complete Time: 16:19 04/05 15:15 Order name: CBC with Diff; Complete Time: 15:42 04/05 15:15 Order name: LFT's; Complete Time: 16:19 04/05 15:15 Order name: Magnesium; Complete Time: 16:19 04/05 15:15 Order name: NT PRO-BNP; Complete Time: 16:19 04/05 15:15 Order name: PT-INR; Complete Time: 16:19 04/05 15:15 Order name: Troponin (emerg Dept Use Only); Complete Time: 16:19 04/05 15:15 Order name: XRAY Chest (1 view); Complete Time: 16:56 04/05 15:15 Order name: TS; Complete Time: 16:19 04/05 15:15 Order name: TSH; Complete Time: 16:19 04/05 15:15 Order name: EKG; Complete Time: 15:17 04/05 15:15 Order name: Cardiac monitoring; Complete Time: 15:27 04/05 15:15 Order name: EKG - Nurse/Tech; Complete Time: 15:51 04/05 15:15 Order name: IV Saline Lock; Complete Time: 15:28 04/05 15:15 Order name: Labs collected and sent; Complete Time: 15:28 04/05 15:15 Order name: O2 Per Protocol; Complete Time: 15:28 04/05 15:15 Order name: O2 Sat Monitoring; Complete Time: 15:28 04/05 17:51 Order name: FSBS; Complete Time: 18:39 04/05 18:12 Order name: Misc. Order: assist with changing brief/dressing for discharge please; [facility] Complete Time: 18:39 Administered Medications: 15:33 Drug: foLIC Acid 1 mg Route: IVPB; Site: right antecubital; aj 16:11 Follow up: Response: No adverse reaction; IV Status: Completed infusion; IV Intake: aj 0.2ml 15:34 Drug: NS 0.9% 500 ml Route: IV; Rate: 50 ml/hr; Site: right antecubital; aj 18:39 Follow up: Response: No adverse reaction; IV Status: Completed infusion; IV Intake: 50mlaj 16:11 Drug: Cyanocobalamin 1000 mcg Route: IM; Site: right deltoid; aj 16:55 Follow up: Response: No adverse reaction aj 16:42 Drug: NS 0.9% 500 ml Route: IV; Rate: bolus; Site: right antecubital; aj 18:39 Follow up: Response: No adverse reaction; IV Status: Completed infusion; IV Intake: aj 500ml 16:50 Drug: Potassium Effervescent Tablet 50 mEq Route: PO; aj 18:39 Follow up: Response: No adverse reaction aj Point of Care Testing: Blood Glucose: 15:11 Blood Glucose: 91 mg/dL; aj 16:12 Blood Glucose: 139 mg/dL; aj 17:49 Blood Glucose: 146 mg/dL; aj Ranges: Critical Glucose Levels:Adult <50 mg/dl or >400 mg/dl <40 mg/dl or >180 mg/dl Disposition: 18:58 Co-signature as Attending Physician, Maribell Alonzo MD. ma2 Disposition: 04/05/19 17:52 Discharged to Home. Impression: Hypoglycemia, unspecified, Hypokalemia, Volume depletion. - Condition is Stable. - Discharge Instructions: Potassium Content of Foods, Blood Glucose Monitoring, Adult, Hypoglycemia, [id number], Hypokalemia, Rehydration, Elderly. - Medication Reconciliation Form, Thank You Letter, Antibiotic Education, Prescription Opioid Use form. - Follow up: Private Physician; When: 1 - 2 days; Reason: Recheck today's complaints, Continuance of care, Re-evaluation by your physician. Follow up: Emergency Department; When: As needed; Reason: Worsening of condition. Signatures: Dispatcher [employer] Deja Yoo RN RN aj Therrien, Shelly, TRANSPORT OPERATIONS INSPECTOR-C TRANSPORT OPERATIONS INSPECTOR-[place] Maribell Alonzo MD MD ma2 Corrections: (The following items were deleted from the chart) 18:41 17:52 04/05/2019 17:52 Discharged to Home. Impression: Hypoglycemia, unspecified; aj Hypokalemia; Volume depletion. Condition is Stable. Forms are Medication Reconciliation Form, Thank You Letter, Antibiotic Education, Prescription Opioid Use. Follow up: Private Physician; When: 1 - 2 days; Reason: Recheck today's complaints, Continuance of care, Re-evaluation by your physician. Follow up: Emergency Department; When: As needed; Reason: Worsening of condition. snw
--- NOTE | 2019-04-06 12:53 | EKG ---
Test Date: 2019-04-05 Test Time: 15:44:27 [employer] Fixture Assembler: GERRI MEASUREMENT RESULTS: Intervals: Rate: 71 TN: 200 QRSD: 128 QT: 470 QTc: 510 [place]: P: 66 TN: 200 QRS: 14 T: 25 INTERPRETIVE STATEMENTS: Normal sinus rhythm Right bundle branch block Abnormal ECG Compared to ECG 03/18/2019 11:19:24 Sinus tachycardia no longer present First degree AV block no longer present T-wave abnormality no longer present Possible ischemia no longer present Electronically Signed On 04-06-19 12:49:52 CDT by Fredi George
== END 2019-04-05 18:41 | disposition home or self-care (01) ==
LOC: ER 14:56
DX: E11.649 Type 2 diabetes mellitus with hypoglycemia without coma (principal); E87.6 Hypokalemia; E86.9 Volume depletion, unspecified; G30.9 Alzheimer's disease, unspecified; F02.80 Dementia in other diseases classified elsewhere, unspecified severity, without behavioral disturbance, psychotic disturbance, mood disturbance, and anxiety; E78.5 Hyperlipidemia, unspecified; I10 Essential (primary) hypertension; Z88.0 Allergy status to penicillin; Z79.4 Long term (current) use of insulin
CPT/HCPCS: 96365; 96361; 93005; 85025; 80048; 36415; 86900; 83735; 86850; 85610; 86901; 82962 ×3; 80076; 84443; 84484; 83880; 71045; 96372; 99284; J3420

== ENCOUNTER 2019-04-18 20:29 | Inpatient (IN) | payer OTHER ==
--- OUTSIDE RECORDS SUMMARY | 2019-04-18 20:34 | XMS REPORT | Continuity of Care Document ---
:1940 Author Organization [employer] Care Team Providers Name Role Phone [employer] Information [employer] Unavailable Unavailable Problems Problem Status Onset Classification Date Comments Source Date Reported Sepsis 03/29/[address] POSS ISCHEMIC Active [facility] BOWEL [address] [place] [address] Center SEPSIS Active [address] Center Type II Active Problem 03/29/2019 [facility] diabetes [facility] mellitus poorly Center controlled SEPSIS, Active [facility] UNSPECIFIED Medical ORGANISM Center Medications Medication Details Route Status Patient Ordering Order Source Instructions Provider Date Citalopram 10 mg, Route: No Longer [facility] PO, Drug form: Active 2018 Medical TAB, Daily, Center Dosing Weight 76.001, kg, Start date: 03/28/19 9:00:00 CDT, Duration: 30 day, Stop date: 04/26/19 9:00:00 CDT quetiapine 25 mg, Route: Inactive [facility] PO, Drug form: 2019 Medical TAB, BID, Center Dosing Weight 76.001, kg, PRN Agitation, Start date: 03/27/19 10:18:00 CDT, Duration: 30 day, Stop date: 04/26/19 10:17:00 CDT Zyprexa 5 mg, 1 tab, No Longer [facility] Route: PO, Active 2018 Medical Drug form: Center TAB, Bedtime, Dosing Weight 76.001, kg, Start date: 03/26/19 21:00:00 CDT, Duration: 30 day, Stop date: 04/24/19 21:00:00 CDT, 0Notes: (Same as: ZyPREXA) Zyprexa 5 mg, 1 tab, No Longer [facility] Route: PO, Active 2018 Medical Drug form: Center TAB, BID, Dosing Weight 76.001, kg, PRN Agitation, Start date: 03/26/19 13:55:00 CDT, Duration: 30 day, Stop date: 04/25/19 13:54:00 CDT, 0Notes: (Same as: ZyPREXA) NS (Bolus) IV 500 mL, 500 Inactive [facility] ml/hr, Infuse 2019 Medical Over: 1 hr, [place] Route: IV, 500, Drug form: INJ, ONCE, Priority: STAT, Dosing Weight 76.001 kg, Start date: 03/26/19 7:30:00 CDT, Stop date: 03/26/19 7:30:00 CDT, 0 NS (Bolus) IV 500 mL, 500 Inactive [facility] ml/hr, Infuse 2019 Medical Over: 1 hr, [place] Route: IV, 500, Drug form: INJ, ONCE, Priority: STAT, Dosing Weight 76.001 kg, Start date: 03/25/19 10:11:00 CDT, Stop date: 03/25/19 10:11:00 CDT, 0 potassium 40 mEq, 2 tab, Inactive [place] chloride 20 mEq Route: PO, 2019 Medical oral tablet, Drug form: [place] extended release ERTAB, ONCE, Dosing Weight 76.001, [...] Patients with feeding tube less than 14 [place] (Dobhoff, J-tube etc) and pediatric and patients. Seroquel 25 mg, 1 tab, No Longer [place] Route: PO, Active 2018 Medical Drug form: [place] TAB, BID, Dosing Weight 76.001, kg, PRN Agitation, Start date: 03/24/19 17:11:00 CDT, Duration: 30 day, Stop date: 04/23/19 17:10:00 CDT, 0Notes: (Same as: SEROquel) Lovenox 40 mg, 0.4 mL, No Longer [place] Route: SUB-Q, Active 2018 Medical Drug form: [place] INJ, [id number], Dosing Weight 76.001, kg, Start date: 03/23/19 11:00:00 CDT, Duration: 30 day, Stop date: 04/21/19 11:00:00 CDTNotes: (Same as: Lovenox) Insulin Glargine 10 unit, 0.1 Inactive [place] 100 UNT/ML mL, Route: 2019 [facility] Injectable SUB-Q, Drug Center Solution form: SOLN, [Lantus] ONCE, Dosing Weight 76.001, kg, Start date: 03/23/19 10:24:00 CDT, Stop date: 03/23/19 10:24:00 CDT Plavix 75 mg, 1 tab, No Longer [place] Route: PO, Active 2019 Medical Drug form: [place] TAB, Daily, Dosing Weight 76.001, kg, Start date: 03/23/19 9:00:00 CDT, Duration: 30 day, Stop date: 04/21/19 9:00:00 CDTNotes: (Same As: Plavix) Potassium 20 mEq, 1 tab, Inactive [place] Chloride Route: PO, 2019 Medical Drug form: [place] ERTAB, ONCE, Dosing Weight 76.001, kg, Start [...] Patients with feeding tube less than 14 [place] (Dobhoff, J-tube etc) and pediatric and patients. potassium 2 pkt, Route: Inactive [place] phosphate-sodium PO, Drug Form: 2019 [facility] phosphate 250 PDR/REC, [place] mg-280 mg-160 mg Dosing Weight oral powder for 76.001, kg, reconstitution ONCE, Start date: 03/23/19 6:14:00 CDT, Stop date: 03/23/19 6:14:00 CDTNotes: (Same as: Phos-NaK) Each 1.5 gm pkt has 250mg phosphorous. Mix w/2.5oz water and stir. potassium 40 mEq, 2 tab, Inactive [place] chloride 20 mEq Route: PO, 2019 Medical oral tablet, Drug form: [place] extended release ERTAB, ONCE, Dosing Weight 76.001, [...] Patients with feeding tube less than 14 [place] (Dobhoff, J-tube etc) and pediatric and patients. Mirtazapine 15 mg, 1 tab, No Longer [place] Route: PO, Active 2019 Medical Drug form: [place] TAB, Bedtime, Dosing Weight 76.001, kg, Start date: 03/22/19 21:00:00 CDT, Duration: 30 day, Stop date: 04/20/19 21:00:00 CDTNotes: (Same as:Remeron) Plavix 75 mg, 1 tab, Inactive [place] Route: PO, 2019 Medical Drug form: [place] TAB, ONCE, Dosing Weight 76.001, kg, Start date: 03/22/19 11:28:00 CDT, Stop date: 03/22/19 11:28:00 CDTNotes: (Same As: Plavix) Potassium 20 mEq, 1 tab, Inactive [place] Chloride Route: PO, 2019 Medical Drug form: [place] ERTAB, ONCE, Dosing Weight 76.001, kg, Start [...] Patients with feeding tube less than 14 [place] (Dobhoff, J-tube etc) and pediatric and patients. Trazodone 100 mg, 2 tab, No Longer [place] Hydrochloride Route: PO, Active 2019 Medical 100 MG Oral Drug form: Center Tablet TAB, Bedtime, Dosing Weight 76.001, kg, Start date: 03/21/19 21:00:00 CDT, Duration: 30 day, Stop date: 04/19/19 21:00:00 CDTNotes: (Same As: Desyrel) Lisinopril 20 mg, 1 tab, No Longer [place] Route: PO, Active 2018 Medical Drug form: Center TAB, Daily, Dosing Weight 76.001, kg, Start date: 03/21/19 9:00:00 CDT, Duration: 30 day, Stop date: 04/19/19 9:00:00 CDTNotes: (Same as: Prinivil, Zestril) Amlodipine 5 mg, 1 tab, No Longer [place] Route: PO, Active 2018 Medical Drug form: Center TAB, Daily, Dosing Weight 76.001, kg, Start date: 03/21/19 9:00:00 CDT, Duration: 30 day, Stop date: 04/19/19 9:00:00 CDTNotes: (Same as: Norvasc) Potassium 20 mEq, 100 Inactive [place] Chloride mL, Route: 2019 Medical IVPB, Drug Center form: INJ, Q2H, Dosing Weight 76.001, kg, Total Dose=60 meq, Start date: 03/21/19 8:00:00 CDT, Duration: 3 doses or times, Stop date: 03/21/19 12:00:00 CDT, Peripheral LineNotes: (Same as: KCL) Infuse no faster than 10 mEq/hr if given peripherally. vancomycin + 1.75 gm, No Longer [place] Sodium Chloride Route: IVPB, Active 2018 Medical 0.9% IV 250 mL [id number], Start Center date: 03/21/19 5:00:00 CDT, Duration: [...] Simvastatin 20 mg, 1 tab, No Longer [place] Route: PO, Active 2018 Medical Drug form: [place] TAB, Bedtime, Dosing Weight 76.001, kg, Start date: 03/20/19 21:00:00 CDT, Duration: 30 day, Stop date: 04/18/19 21:00:00 CDTNotes: (Same as: Zocor) Dextrose 50% 25 gm, 50 mL, No Longer [place] Syringe Route: IVP, Active 2018 Medical Drug Form: Center INJ, Dosing Weight 76.001, kg, PRN, PRN Blood Glucose Results, Start date: 03/20/19 18:27:00 CDT, Duration: 30 day, Stop date: 04/19/19 18:26:00 CDT Glucagon 1 mg, Route: No Longer [place] IM, Drug form: Active 2018 Medical PDR/INJ, PRN, Center Dosing Weight 76.001, kg, PRN Blood Glucose Results, Start date: 03/20/19 18:27:00 CDT, Duration: 30 day, Stop date: 04/19/19 18:26:00 CDT Insulin Lispro 10 unit, 0.1 No Longer [place] mL, Route: Active 2018 Medical SUB-Q, Drug [...] Date Amlodipine 5 mg, 1 tab, Inactive [place] Route: PO, 2018 Medical Drug form: [place] TAB, ONCE, Dosing Weight 76.001, kg, Start date: 03/20/19 17:53:00 CDT, Stop date: 03/20/19 17:53:00 CDTNotes: (Same as: Norvasc) Isolyte S PH 7.4 1,000 mL, No Longer [place] 1,000 mL Rate: 150 Active 2018 Medical ml/hr, Infuse Center over: 6.7 hr, Route: IV, Dosing Weight 76.001 kg, Total Volume: 1,000, Start date: 03/20/19 4:38:00 CDT, Duration: 30 day, Stop date: 04/19/19 4:37:00 CDT, 1.96, x1Siiew: (Same as: Isolyte S PH 7.4) Flagyl 500 mg, 100 No Longer [place] mL, Route: Active 2018 Medical IVPB, Drug Center form: INJ, [id number], Dosing Weight 76.001, kg, Start date: 03/20/19 2:30:00 CDT, Stop date: 03/23/19 22:00:00 CDT, ABX Indication: Infectious DiarrheaNotes: (Same as: Flagyl) Avoid alcohol. vancomycin 1.25 gm, 250 No Longer [place] mL, Route: Active 2018 Medical IVPB, Drug Center form: INJ, [id number], Start date: 03/20/19 2:00:00 CDT, Duration: 30 day, Stop date: 04/18/19 14:00:00 CDT, ABX Indication: Intra-abdomina l InfectionNotes : TIME CRITICAL MEDICATION Same as: Vancocin-NS (premixed) Infusion rate 2001 mg: infuse over 2.5 hours Melatonin 3 mg, 1 tab, No Longer [place] Route: PO, Active 2018 Medical Drug form: Center TAB, Bedtime, Dosing Weight 76.001, kg, PRN Sleep, Start date: 03/19/19 21:30:00 CDT, Duration: 30 day, Stop date: 04/18/19 21:29:00 CDTNotes: (Same as: Melatonin) Tylenol 650 mg, 2 tab, No Longer [place] Route: PO, Active 2018 Medical Drug form: [...] metoprolol 50 mg, 1 tab, No Longer [place] tartrate Route: PO, Active 2019 Medical Drug form: Center TAB, BID, Dosing Weight 76.001, kg, Priority: STAT, Start date: 03/19/19 18:55:00 CDT, Duration: 30 day, Stop date: 04/19/19 9:00:00 CDTNotes: (Same as: Lopressor) Insulin Lispro 15 unit, 0.15 No Longer [place] mL, Route: Active 2018 [facility] SUB-Q, Drug Center form: SOLN, Sliding Scale, [...] Dextrose 50% 12.5 gm, 25 No Longer [place] Syringe mL, Route: Active 2018 [facility] IVP, Drug Center Form: INJ, Dosing Weight 76.001, kg, PRN, PRN Blood Glucose Results, Start date: 03/19/19 17:59:00 CDT, Duration: 30 day, Stop date: 04/18/19 17:58:00 CDT Glucagon 1 mg, Route: No Longer [place] IM, Drug form: Active 2018 Medical PDR/INJ, PRN, Center Dosing Weight 76.001, kg, PRN Blood Glucose Results, Start date: 03/19/19 17:59:00 CDT, Duration: 30 day, Stop date: 04/18/19 17:58:00 CDT lactulose\\water 200 gm, 300 Inactive [place] - enema ml, Route: IA, 2018 Medical Drug Form: [place] SADIQ, Dosing Weight 76.001, kg, ONCE, Start date: 03/19/19 13:42:00 CDT, Stop date: 03/19/19 13:42:00 CDT, 300 mL lactulose + 700 mL waterNotes: (Same as:Chronulac) Galantamine 8mg Galantamine No Longer [place] ER Cap 8mg ER Cap, 24 Active 2019 Medical mg, 3 cap, [place] Drug form: [facility], Route: PO, QAM, 03/19/19 13:00:00 CDT, Duration: 30 day, Stop date: 04/18/19 9:00:00 CDT Lactulose 200 gm, 300 Inactive [place] ml, Route: IA2018 Medical Drug Form: [place] ARON, Dosing Weight 76.001, kg, ONCE, Start date: 03/19/19 12:58:00 CDT, Stop date: 03/19/19 12:58:00 CDT, 300 mL lactulose + 700 mL waterNotes: (Same as:Chronulac) Lactulose 200 gm, 300 Inactive [place] ml, Route: IA2018 Medical Drug Form: [place] SADIQ, Dosing Weight 76.001, kg, ONCE, Start date: 03/19/19 11:34:00 CDT, Stop date: 03/19/19 11:34:00 CDT, 300 mL lactulose + 700 mL waterNotes: (Same as:Chronulac) Memantine 5 mg, 1 tab, No Longer [facility] Route: PO, Active 2018 Medical Drug form: [place] TAB, Q12H, Dosing Weight 76.001, kg, Start date: 03/19/19 11:31:00 CDT, Duration: 30 day, Stop date: 04/18/19 9:00:00 CDTNotes: (Same As: Namenda) Galantamine 24 mg, 1 cap, Inactive [facility] Route: PO, 2019 Medical Drug form: [place] ERCAP, QAM, Dosing Weight 76.001, kg, Start [...] Refill(s) metoprolol 50 mg=1 tab, No Longer [facility] tartrate 50 mg PO, BID, # 180 Active 2019 Medical oral tablet tab, 0 Center Refill(s) Insulin, Aspart, 12 unit, Active [facility] Human SUB-Q, 2019 Medical TID-Before Center Meals, 0 Refill(s) simvastatin 20 20 mg=1 tab, Active [facility] mg oral tablet PO, Bedtime, # 2019 Medical 30 tab, 1 Center Refill(s) insulin detemir 47 unit, Active [facility] SUB-Q, Daily, 2019 Medical 0 Refill(s) Center galantamine 24 24 mg=1 cap, Active [facility] mg oral capsule, PO, QAM, # 30 2019 Medical extended release cap, 0 Center Refill(s) lisinopril 20 mg 20 mg=1 tab, No Longer [facility] oral tablet PO, Daily, # Active 2019 Medical 30 tab, 0 Center Refill(s) clopidogrel 75 75 mg=1 tab, Active [place] MG Oral Tablet PO, Daily, # 2019 Medical [Plavix] 90 tab, 0 Center Refill(s) Insulin Lispro 4 unit, 0.04 Inactive [facility] mL, Route: 2019 Medical SUB-Q, Drug [...] from Date Glucagon 1 mg, Route: Inactive [facility] IM, Drug form: 2019 Medical PDR/INJ, PRN, Center Dosing Weight 76.001, kg, PRN Blood Glucose Results, Start date: 03/19/19 7:45:00 CDT, Duration: 30 day, Stop date: 04/18/19 7:44:00 CDT Dextrose 50% 12.5 gm, 25 Inactive [facility] Syringe mL, Route: 2019 Medical IVP, Drug Center Form: INJ, Dosing Weight 76.001, kg, PRN, PRN Blood Glucose Results, Start date: 03/19/19 7:45:00 CDT, Duration: 30 day, Stop date: 04/18/19 7:44:00 CDT cefepime 1 gm, Route: No Longer [facility] IVP, Drug Active 2018 Medical form: INJ, Center [id number], Dosing Weight 76.001, kg, (CrCl 30 - 49 ml/min), Start date: 03/19/19 6:00:00 CDT, Stop date: 03/23/19 21:00:00 CDT, ABX Indication: Infectious DiarrheaNotes: (Same As: Maxipime) MEDICATION WASTE Product Size: 1000 mg Product Wasted: ___ mg Flagyl 500 mg, 100 No Longer [facility] mL, Route: Active 2018 Medical IVPB, Drug Center form: INJ, [id number], Dosing Weight 76.001, kg, Start date: 03/19/19 6:00:00 CDT, Duration: 5 day, Stop date: 03/23/19 22:00:00 CDT, ABX Indication: Infectious DiarrheaNotes: (Same as: Flagyl) Avoid alcohol. Insulin Glargine 20 unit, 0.2 No Longer [facility] 100 UNT/ML mL, Route: Active 2019 Medical Injectable SUB-Q, Drug Center Solution form: SOLN, [Lantus] Daily, Dosing Weight 76.001, kg, Start date: 03/19/19 4:00:00 CDT, Duration: 30 day, Stop date: 04/23/19 9:00:00 CDT Dextrose 50% 25 gm, 50 mL, No Longer [facility] Syringe Route: IVP, Active 2018 Medical Drug Form: Center INJ, Dosing Weight 76.001, kg, PRN, PRN Blood Glucose Results, Start date: 03/19/19 2:25:00 CDT, Duration: 30 day, Stop date: 04/18/19 2:24:00 CDT Glucagon 1 mg, Route: No Longer [facility] IM, Drug form: Active 2018 Medical PDR/INJ, PRN, Center Dosing Weight 76.001, kg, PRN Blood Glucose Results, Start date: 03/19/19 2:25:00 CDT, Duration: 30 day, Stop date: 04/18/19 2:24:00 CDT Isolyte S PH 7.4 2,000 mL, No Longer [facility] 2,000 mL Rate: 150 Active 2019 Medical ml/hr, Infuse Center over: 13.3 hr, Route: IV, Dosing Weight 76.001 kg, Total Volume: 2,000, Start date: 03/19/19 1:36:00 CDT, Duration: 1 day, Stop date: 03/20/19 1:35:00 CDT, 1.96, [id number]: (Same as: Isolyte S PH 7.4) Protonix 40 mg, Route: No Longer [facility] IVP, Drug Active 2019 Medical form: INJ, Center ONCE, Dosing Weight 63.5, kg, Priority: STAT, Start date: 03/18/19 23:21:00 CDT, Stop date: 03/18/19 23:21:00 CDTNotes: For IV push reconstitute with 10 ml 0.9% sodium chloride and push over 2 minutes. (Same as: Protonix) pantoprazole 100 mL, Rate: No Longer [facility] additive 80 mg + 10 ml/hr, Active 2019 Medical Sodium Chloride Infuse over: Center 0.9% IV 100 mL 10 hr, Route: IVPB, Dosing Weight 63.5 kg, Total Volume: 100, Infuse at 8 mg/hr for 72 hrs for GI bleeding, Start date: 03/18/19 23:21:00 CDT, Duration: 72 hr, Stop date: 03/21/19 23:20:00 CDT, 1.76, [id number]: For IV push reconstitute with 10 ml [...] 17:14:00 CDT cefepime 2 gm, Route: Inactive 03/18[facility] [place] IVP, Drug 2019 Medical form: INJ, Center ONCE, Dosing Weight 63.5, kg, Priority: STAT, Start date: 03/18/19 17:14:00 CDT, Stop date: 03/18/19 17:14:00 CDT, ABX Indication: ED - Suspected SepsisNotes: MEDICATION WASTE Product Size: 2000 mg Product Wasted: ___ mg Vancomycin 1.5 gm, 250 Inactive 03/18/ [facility] mL, Route: 2019 Medical IVPB, Drug [...] Source type Reported penicillins Assertion Drug Active [facility] Immunizations No Data Provided for This Section Results Order Name Results Value Reference Date Interpretation Comments Source Range CARDIAC Total CK 56 12 - 191 03/25 [facility] CHEM PANEL eGFR 73 03/25 Result [...] Sodium Lvl 141 135 - 145 03/25 [facility]2018 [facility] CHEM PANEL Potassium Lvl 3.4 3.5 - 5.1 03/[address] CHEM PANEL Glucose Lvl 183 70 - 99 03/[address] CHEM PANEL BUN 20 7 - 22 03/[address] CHEM PANEL Chloride Lvl 107 95 - 109 03/[address] CHEM PANEL CO2 27 24 - 32 03/25 2018 [facility] CHEM PANEL Calcium Lvl 8.2 8.5 - 10.5 03/25 2018 [facility] CHEM PANEL AGAP 10.4 10.0 - 03/25 [place] 20.0 [facility] CHEM PANEL Creatinine 0.98 0.50 - 03/25 [place] Lvl 1.40 /2018 [facility] HEMATOLOGY Hgb 11.5 14.0 - 03/25 [place] 18.0 [facility] HEMATOLOGY Hct 32.0 42.0 - 03/25 [place] 54.0 [facility] HEMATOLOGY MCV 95.5 80.0 - 03/25 [facility] 94.0 [facility] HEMATOLOGY MCH 34.2 27.0 - 03/25 [facility] 31.0 [facility] HEMATOLOGY WBC 6.3 3.7 - 10.4 03/25 [facility]2018 [facility] HEMATOLOGY RBC 3.36 4.70 - 03/25 [place] 6.10 [facility] HEMATOLOGY MPV 8.9 7.4 - 10.4 03/25 2018 [facility] HEMATOLOGY Platelet 175 133 - 450 03/25 [facility]2018 [facility] HEMATOLOGY MCHC 35.8 32.0 - 03/25 [facility] 36.0 [facility] HEMATOLOGY RDW 12.6 11.5 - 03/25 [place] 14.5 [facility] HEMATOLOGY Neutrophils # 3.8 1.5 - 8.1 03/25 [facility]2018 [facility] HEMATOLOGY Eosinophils 2.4 0.0 - 4.0 03/25 [facility]2018 [facility] HEMATOLOGY Basophils 0.6 0.0 - 1.0 03/25 [facility]2018 [facility] HEMATOLOGY Monocytes 16.8 2.0 - 12.0 03/25 [facility]2018 [facility] HEMATOLOGY Eosinophils # 0.1 0.0 - 0.5 03/[address] HEMATOLOGY Lymphocytes # 1.3 1.0 - 5.5 03/25 [facility]2018 [facility] HEMATOLOGY Monocytes # 1.1 0.0 - 0.8 03/[address] HEMATOLOGY Lymphocytes 20.6 20.0 - 03/25 [place] 40.0 2019 [facility] HEMATOLOGY Segs 59.6 45.0 - 03/25 [place] 75.0 [facility] CHEM PANEL Magnesium Lvl 1.8 1.8 - 2.4 03/24 [facility]2018 [facility] CHEM PANEL Phosphorus 2.6 2.5 - 4.5 03/24 [facility]2018 [facility] ELECTROLYTE AGAP 9.6 10.0 - 03/24 [facility] S 20.0 [facility] ELECTROLYTE eGFR 83 03/24 Result [facility] Comment: The Medical eGFR is Center [...] Calcium Lvl 8.3 8.5 - 10.5 03/24 [facility]2018 [facility] ELECTROLYTE Potassium Lvl 3.6 3.5 - 5.1 03/[address] ELECTROLYTE Sodium Lvl 143 135 - 145 03/[address] ELECTROLYTE Chloride Lvl 110 95 - 109 03/24 [facility]2018 [facility] ELECTROLYTE CO2 27 24 - 32 03/24 [facility]2018 [facility] ELECTROLYTE Creatinine 0.84 0.50 - 03/24 [facility] Lvl 1.40 [facility] ELECTROLYTE BUN 16 7 - 22 03/[address] ELECTROLYTE Glucose Lvl 142 70 - 99 03/24 [facility]2018 [facility] HEMATOLOGY MCV 97.3 80.0 - 03/24 [facility] 94.0 [facility] HEMATOLOGY MCH 33.9 27.0 - 03/24 [place] 31.0 [facility] HEMATOLOGY MCHC 34.9 32.0 - 03/24 [place] 36.0 [facility] HEMATOLOGY WBC 5.6 3.7 - 10.4 03/24 [facility] HEMATOLOGY RBC 3.47 4.70 - 03/24 [place] 6.10 [facility] HEMATOLOGY Hct 33.7 42.0 - 03/24 [place] 54.0 [facility] HEMATOLOGY Platelet 165 133 - 450 03/24 [facility]2018 [facility] HEMATOLOGY Hgb 11.8 14.0 - 03/24 18.0 [facility] HEMATOLOGY RDW 13.3 11.5 - 03/24 [place] 14.5 [facility] HEMATOLOGY MPV 8.8 7.4 - 10.4 03/24 [facility]2018 [facility] HEMATOLOGY Monocytes # 1.0 0.0 - 0.8 03/24 [facility]2018 [facility] HEMATOLOGY Eosinophils # 0.2 0.0 - 0.5 03/24 [facility]2018 [facility] HEMATOLOGY Lymphocytes # 1.1 1.0 - 5.5 03/24 [facility]2018 [facility] HEMATOLOGY Segs 58.8 45.0 - 03/24 [place] 75.0 [facility] HEMATOLOGY Basophils 0.6 0.0 - 1.0 03/24 2018 [facility] HEMATOLOGY Eosinophils 4.1 0.0 - 4.0 03/24 2018 [facility] HEMATOLOGY Monocytes 17.7 2.0 - 12.0 03/24 [facility]2018 [facility] HEMATOLOGY Neutrophils # 3.3 1.5 - 8.1 03/24 [facility]2018 [facility] HEMATOLOGY Lymphocytes 18.8 20.0 - 03/24 [place] 40.0 [facility] CHEM PANEL eGFR 85 03/23 [facility] Comment: The Medical eGFR is Center [...] Calcium Lvl 8.5 8.5 - 10.5 03/[address] CHEM PANEL CO2 20 24 - 32 03/[address] CHEM PANEL BUN 16 7 - 22 03/[address] CHEM PANEL Chloride Lvl 107 95 - 109 03/23 [facility]2018 [facility] CHEM PANEL Potassium Lvl 3.4 3.5 - 5.1 03/[address] CHEM PANEL Sodium Lvl 142 135 - 145 03/[address] CHEM PANEL Creatinine 0.81 0.50 - 03/23 [place] Lvl 1.40 [facility] CHEM PANEL Glucose Lvl 251 70 - 99 03/[address] CHEM PANEL AGAP 18.4 10.0 - 03/23 [place] 20.0 [facility] CHEM PANEL Phosphorus 2.1 2.5 - 4.5 03/[address] CHEM PANEL Magnesium Lvl 1.8 1.8 - 2.4 03/23 2018 [facility] HEMATOLOGY RBC 3.51 4.70 - 03/23 [place] 6.10 [facility] HEMATOLOGY WBC 7.2 3.7 - 10.4 03/23 [facility]2018 [facility] HEMATOLOGY Hct 34.1 42.0 - 03/23 [place] 54.0 [facility] HEMATOLOGY Hgb 11.8 14.0 - 03/23 [place] 18.0 [facility] HEMATOLOGY RDW 12.9 11.5 - 03/23 [place] 14.5 [facility] HEMATOLOGY MCHC 34.7 32.0 - 03/23 [place] 36.0 [facility] HEMATOLOGY Platelet 149 133 - 450 03/23 [facility]2018 [facility] HEMATOLOGY MCH 33.7 27.0 - 03/23 [place] 31.0 [facility] HEMATOLOGY MCV 97.1 80.0 - 03/23 [place] 94.0 [facility] HEMATOLOGY MPV 8.6 7.4 - 10.4 03/[address] HEMATOLOGY Segs 64.0 45.0 - 03/23 [place] 75.0 [facility] HEMATOLOGY Basophils 0.5 0.0 - 1.0 03/[address] HEMATOLOGY Lymphocytes # 1.2 1.0 - 5.5 03/[address] HEMATOLOGY Neutrophils # 4.6 1.5 - 8.1 03/[address] HEMATOLOGY Monocytes 17.4 2.0 - 12.0 03/[address] HEMATOLOGY Lymphocytes 16.5 20.0 - 03/23 [place] 40.0 [facility] HEMATOLOGY Monocytes # 1.3 0.0 - 0.8 03/[address] HEMATOLOGY Eosinophils # 0.1 0.0 - 0.5 03/[address] HEMATOLOGY Eosinophils 1.6 0.0 - 4.0 03/[address] PARATHYROID Ca Ion WB 1.07 1.05 - 03/23 [place] PROFILE 1. [facility] PARATHYROID Ca Norm WB 1.07 1.05 - 03/23 [facility] PROFILE . [facility] CHEM PANEL Globulin 2.4 2.7 - 4.2 03/[address] CHEM PANEL A/G Ratio 1.0 0.7 - 1.6 03/[address] CHEM PANEL B/C Ratio 20 6 - 25 03/[address] CHEM PANEL ALT 19 0 - 65 03/[address] CHEM PANEL Bili Total 0.7 0.2 - 1.3 03/[address] CHEM PANEL AST 38 0 - 37 03/[address] CHEM PANEL Alk Phos 56 39 - 136 03/[address] CHEM PANEL Total Protein 4.7 6.4 - 8.4 03/[address] CHEM PANEL Albumin Lvl 2.3 3.5 - 5.0 03/[address] CARDIAC Total CK 1302 12 - 191 03/21 [facility] 2018 [facility] CHEM PANEL Bili Total 1.0 0.2 - 1.3 03/[address] CHEM PANEL Alk Phos 76 39 - 136 03/[address] CHEM PANEL A/G Ratio 0.9 0.7 - 1.6 03/[address] CHEM PANEL Globulin 2.8 2.7 - 4.2 03/[address] CHEM PANEL Albumin Lvl 2.6 3.5 - 5.0 03/[address] CHEM PANEL AST 70 0 - 37 03/[address] CHEM PANEL ALT 25 0 - 65 03/[address] CHEM PANEL Total Protein 5.4 6.4 - 8.4 03/[address] CHEM PANEL B/C Ratio 17 6 - 25 03/[address] HEMATOLOGY Basophils # 0.1 0.0 - 0.2 03/[address] TOXICOLOGY Vanco Tr TND 0130 03/[address] TOXICOLOGY Vanco Tr 7.9 03/[address] CARDIAC Troponin-I 0.32 0.00 - 03/20 [facility] ENZYMES 0. [facility] CARDIAC Troponin-I 0.30 0.00 - 03/20 [facility] ENZYMES 0.40 [facility] CHEM PANEL B/C Ratio 27 6 - 25 03/[address] CHEM PANEL Globulin 3.1 2.7 - 4.2 03/[address] CHEM PANEL A/G Ratio 0.8 0.7 - 1.6 03/[address] CHEM PANEL Alk Phos 75 39 - 136 03/[address] CHEM PANEL Bili Total 0.7 0.2 - 1.3 03/[address] CHEM PANEL ALT 23 0 - 65 03/[address] CHEM PANEL AST 53 0 - 37 03/[address] CHEM PANEL Albumin Lvl 2.6 3.5 - 5.0 03/[address] CHEM PANEL Total Protein 5.7 6.4 - 8.4 03/[address] BACTERIAL - Shiga Toxin Negative Negative 03/20 [facility] SEROLOGY (03/20/19 12:16 AM) /2018 [facility] URINE AND Fecal None Seen 03/20 [facility] STOOL Leukocyte (03/20/19 12:16 AM) /2018 [facility] Culture: Normal Enteric Kirti Isolated 03/20 [facility] Stool No Salmonella, Shigella, Or Campylobacter Isolated [facility] CARDIAC Troponin-I 0.32 0.00 - 03/20 [facility] ENZYMES 0.40 [facility] TOXICOLOGY Vanco Lvl 2.9 03/20 [facility] CHEM PANEL Lactic Acid 2.0 0.5 - 2.2 03/19 [facility] CHEM PANEL Lactic Acid 2.4 0.5 - 2.2 03/19 [facility] CHEM PANEL Lactic Acid 2.3 0.5 - 2.2 03/19 [facility] /2018 [facility] Center DRUG SCREEN U Opiate Scr Positive Negative 03/18 [facility] *ABN* /2018 Medical (03/18/19 6:39 PM) Center DRUG SCREEN U Cannab Scr Negative Negative 03/18 [facility] (03/18/19 6:39 PM) /2018 [facility] DRUG SCREEN U Benzodiaz Negative Negative 03/18 [facility] Scr *NA* Medical (03/18/19 6:39 PM) Center DRUG SCREEN U Cocaine Scr Negative Negative 03/18 [facility] *NA* Medical (03/18/19 6:39 PM) Center DRUG SCREEN U Ruth Scr Negative Negative 03/18 [facility] *NA* /2018 Medical (03/18/19 6:39 PM) Center DRUG SCREEN U Amph Scr Negative Negative 03/18 [facility] *NA* [facility] (03/18/19 6:39 PM) Center DRUG SCREEN UDS Note See Note 03/18 [facility] (03/18/19 6:39 PM) /2018 Medical Center DRUG SCREEN U Negative Negative 03/18 [facility] Phencyclidine *NA* /2018 Medical Scr (03/18/19 6:39 PM) Center URINE AND UA Sq Epi None Seen Few 03/18 [facility] STOOL (03/18/19 6:39 PM) /2018 [facility] URINE AND UA Bacteria Few /HPF None Seen 03/18 [facility] STOOL /HPF /2018 [facility] [place] URINE AND UA Mucus Rare /LPF None Seen 03/18 [facility] STOOL /LPF /2018 [facility] URINE AND UA RBC 3-5 /HPF 0 - 2 03/18 [facility] STOOL /2018 [facility] URINE AND UA WBC 0-2 /HPF None Seen 03/18 [facility] STOOL /HPF /2018 [facility] URINE AND UA Amorph Occasional None Seen 03/18 [facility] STOOL Marisela /HPF /HPF /2018 [facility] URINE AND UA Color Yellow Yellow 03/18 [facility] STOOL *NA* /2018 Medical (03/18/19 6:39 PM) Center URINE AND UA Turbidity Clear Clear 03/18 [facility] STOOL (03/18/19 6:39 PM) /2018 [facility] URINE AND UA Glucose >=1000 Negative 03/18 [facility] STOOL mg/dL mg/dL /2018 [facility] URINE AND UA Ketones 15 mg/dL Negative 03/18 [facility] STOOL mg/dL /2018 [facility] URINE AND UA pH 5.0 5.0 - 8.0 03/18 [facility] STOOL /2018 [facility] URINE AND UA Spec Grav 1.020 <=1.030 03/18 [facility] STOOL /2018 [facility] URINE AND UA Leuk Est Negative Negative 03/18 [facility] STOOL (03/18/19 6:39 PM) /2018 [facility] URINE AND UA Bili Negative Negative 03/18 [facility] STOOL *NA* /2018 [facility] (03/18/19 6:39 PM) [place] URINE AND UA Blood Large Negative 03/18 [facility] *ABN* /2018 [facility] (03/18/19 6:39 PM) [place] URINE AND UA Protein Trace Negative 03/18 [facility] *ABN* /2018 [facility] (03/18/19 6:39 PM) [place] URINE AND UA 0.2 0.1 - 1.0 03/18 [facility] Urobilinogen /2018 [facility] URINE AND UA Nitrite Negative Negative 03/18 [facility] (03/18/19 6:39 PM) [facility] CHEM PANEL Procalcitonin 21.07 0.00 - 03/18 Result [facility] Lvl 0.10 Comment: [facility] Result(s) called to MILAN MOSES at 03/18/2019 20:51 by GEORGES. Read back OK. CHEM PANEL Lipase Lvl 36 73 - 393 03/18 [facility] BLOOD BANK Antibody Scrn Negative 03/18 [facility] RESULTS (03/18/19 5:00 PM) [facility] BLOOD BANK ABO/Rh B POS 03/18 [facility] RESULTS /2018 [facility] CARDIAC Total CK 3495 12 - 191 03/18 [facility] ENZYMES /2018 [facility] CHEM PANEL Bili Indirect 0.6 0.0 - 1.0 03/18 [place] [facility] CHEM PANEL Bili Direct 0.1 0.0 - 0.3 03/18 [place] /2018 [facility] HEMATOLOGY INR 1.53 0.85 - 03/18 [place] 1.17 [facility] HEMATOLOGY PT 18.1 12.0 - 03/18 [facility] 14.7 [facility] HEMATOLOGY PTT 37.5 22.9 - 03/18 [facility] 35.8 [facility] HEMATOLOGY Estimated % 0.0 0.0 - 7.5 03/18 [facility] Lysis [facility] HEMATOLOGY ACT (TEG) 113 86 - 118 03/18 [facility]2018 [facility] HEMATOLOGY R-time Rapid 0.7 0.4 - 0.7 03/18 [facility]2018 [facility] HEMATOLOGY K-time Rapid 1.1 0.6 - 2.3 03/18 [facility]2018 [facility] HEMATOLOGY Angle Rapid 77 64 - 80 03/18 [facility]2018 [facility] HEMATOLOGY [place] 0.6 03/18 [facility]2018 [facility] HEMATOLOGY Max Amplitude 71 52 - 71 03/18 [facility]2018 [facility] HEMATOLOGY G-value Rapid 12.0 5.0 - 11.6 03/[address] Pathology Reports No Data Provided for This Section Diagnostic Reports Report Value Date Source Carotid artery EXAM: US EXTRACRANIAL ARTERIAL DOPPLER 03/20/2019 [facility] [place] Doppler bilat US DATE: 03/20/2019 12:28 CDT [...] EXAM: CT CERVICAL SPINE WITHOUT CONTRAST 03/18/2019 [facility] [place] CT DATE: 03/18/2019 18:20 CDT Center INDICATION: - OUTSIDE STUDY/ FALL LESS THAN 8 FEET, second interpretation requested COMPARISON: None TECHNIQUE: Noncontrast CT images of the cervical spine, obtained at [facility]. Sagittal and coronal images provided. Axial images [...] CT ABDOMEN AND PELVIS WITHOUT CONTRAST 2018 [facility] [place] CT DATE: 03/18/2019 at 1147 hours Center INDICATION: - OUTSIDE STUDY/ FALL LESS THAN 8 FEET COMPARISON: None TECHNIQUE: Volumetric CT of the chest, abdomen and pelvis is without contrast from [facility] Axial and sagittal images are provided. [...] with the outside report. Brain-Outside Consult 03/18/2019 [facility] [place] CT EXAMINATION: CT head without contrast, Rubi [...] DX EXAM: XR CHEST 1 VIEW 03/18/2019 [facility] [place] DATE: 03/18/2019 17:16 CDT Center INDICATION: - [...] CT EXAM: CT CHEST WITHOUT CONTRAST 03/18/2019 [facility] [place] DATE: 03/18/2019 17:16 CDT Center INDICATION: - [...] Date Comments Source Respitory Rate 18 03/27/2019 [facility] Heart Rate 100 03/27/2019 [facility] Systolic (mm Hg) 155 03/27/2019 [facility] Diastolic (mm Hg) 83 03/27/2019 [facility] Temperature Oral (F) 98.4 F 03/27/2019 [facility] Heart Rate 102 03/27/2019 [facility] Temperature Oral (F) 98.5 F 03/27/2019 [facility] Respitory Rate 18 03/27/2019 [facility] Systolic (mm Hg) 121 03/27/2019 [facility] Diastolic (mm Hg) 63 03/27/2019 [facility] Temperature Oral (F) 97.3 F 03/27/2019 [facility] Systolic (mm Hg) 110 03/27/2019 [facility] Diastolic (mm Hg) 61 03/27/2019 [facility] Heart Rate 100 03/27/2019 [facility] Respitory Rate 20 03/26/2019 [facility] Height 180.34 cm 03/19/2019 [facility] Weight 76.001 03/19/2019 [facility] Weight 76.001 03/19/2019 [facility] BMI Calculated 23.37 03/19/2019 [facility] Height 180.34 cm 03/19/2019 [facility] BMI Calculated 20.67 03/18/2019 [facility] Weight 63.5 03/18/2019 [facility] Height 175.26 cm 03/18/2019 [facility] Encounters Location Location Encounter Encounter Reason Attending ADM DC Status Source Details Type Number For Provider Date Date Visit [facility] Inpatient [id number] [place] 03/18 03/27 [facility] /2018 [facility] Procedures No Data Provided for This Section Assessment and Plan Assessment and Plan Date Source Extracted from:Title: Progress Note 03/27/2019 [facility] Author: Justin Mahajan MD Date: 03/26/19 [...] plans. Extracted from:Title: Cardiology Consult Note Author: Akshat Bucio MD Date: 03/20/19 Patient is a 78 yo M with hx of CAD s/p CABG in 2001, HLD, dementia who was admitted for ischemic colitis and hematochezia. [facility] He's s/p sigmoidoscopy and now [...] Secondary to fall IV fluids Monitor CK 6.DIAN (acute kidney injury)(N17.9) Likely prerenal secondary to [...] Will start on about half the dose [id number] units Hold lispro Sliding scale insulin Sugar goal 1 40-1 80 13.Pulmonary nodule(R91.1) Outpatient follow-up updated scd bc bloody diarrhea pending improvement Plan of Care No Data Provided for This Section Social History Social History Date Source Social History TypeResponse 03/20/2019 [facility] Smoking Status Never smoker; Exposure to Tobacco Smoke None; Cigarette Smoking Last 365 Days No; Reg Smoking Cessation Counseling Yes entered on: 03/20/19 Family History No Data Provided for This Section Advance Directives No Data Provided for This Section Functional Status No Data Provided for This Section
--- OUTSIDE RECORDS SUMMARY | 2019-04-18 20:34 | XMS REPORT ---
:1940 Author Organization [facility] Address [address] [place] [address] Dr. Duran [address] [place] [id number] Care Team Providers Name Role Phone Unavailable Unavailable Unavailable Problems This patient has no known problems. Allergies, Adverse Reactions, Alerts This patient has no known allergies or adverse reactions. Medications This patient has no known medications. Encounters Start End Encounter Admission Attending Care Care Encounter Date/Time Date/Time Type Type Clinicians Facility Department ID 2019-03-18 2019-03-18 Inpatient E [facility] [id number] 23:21:00 16:39:00
[2019-04-18 21:21] LABS: Absolute Lymphocytes (CBC) 1.9 K/uL (0.7-4.9); Basophils % 0.4 % (0-1.3); Hematocrit 34.6 % (39.6-49.0); Lymphocytes % 30.9 % (15.3-44.8); MPV 8.2 fL (7.6-11.3); RBC Red Blood Cell Count 3.62 M/uL (4.33-5.43)
[2019-04-18 21:24] LABS: Protime INR 1.23
[2019-04-18 21:36] LABS: ALT/SGPT 13 U/L (12-78); AST/SGOT 9 U/L (15-37); Albumin 3.1 g/dL (3.4-5.0); Alkaline Phosphatase 118 U/L (45-117); BUN Blood Urea Nitrogen 9 mg/dL (7-18); Bicarbonate 30 mmol/L (21-32); Bilirubin Direct 0.1 mg/dL (0-0.2); Bilirubin Total 0.4 mg/dL (0.2-1.0); Creatine Phosphokinase 31 U/L (39-308); Glucose Level 152 mg/dL (74-106); Lipase 75 U/L (73-393); Magnesium 1.9 mg/dL (1.8-2.4); Potassium 3.5 mmol/L (3.5-5.1); Protein, Total 6.5 g/dL (6.4-8.2); Sodium Level 143 mmol/L (136-145); Troponin (Emerg Dept Use Only) < 0.02 ng/mL (0.0-0.045)
--- NOTE | 2019-04-18 22:38 | ER ---
Nurse's Notes [facility] Name: Edward Ambrosio Age: 78 yrs Sex: Male : 1940 Arrival Date: 04/18/2019 Time: 20:31 Bed 2 Private MD: Diagnosis: Syncope and collapse Presentation: 04/18 20:33 Presenting complaint: EMS states: Family reports pt stood up went blank, and started ea falling, family member caught him and helped him slide down to the floor, denied LOC or injury to head. Transition of care: patient was not received from another setting of care. Onset of symptoms was April 18, 2019. Risk Assessment: Do you want to hurt yourself or someone else? Patient reports no desire to harm self or others. Initial Sepsis Screen: Does the patient meet any 2 criteria? No. Patient's initial sepsis screen is negative. Does the patient have a suspected source of infection? No. Patient's initial sepsis screen is negative. Care prior to arrival: 20 G to right AC, NS bolus 300 mls administered, BGL 179, initial BP prior to bolus was systolic 78. 20:33 Method Of Arrival: EMS: [facility] ea 20:33 Acuity: MAO 3 ea Triage Assessment: 20:33 General: Appears in no apparent distress. Behavior is cooperative. Pain: Denies pain. ea Neuro: Level of Consciousness is awake, alert, Oriented to person. Neuro: Hat Model are equal bilaterally Speech is normal, Facial symmetry appears normal. Cardiovascular: Patient's skin is warm and dry. Respiratory: Airway is patent Respiratory effort is even, unlabored, Respiratory pattern is regular, symmetrical. Derm: Skin is pink, warm \T\ dry. Musculoskeletal: Circulation, motion, and sensation intact. 20:40 Neuro: Reports EMS said they were toned for a case of fall but did not have LOC. cc3 Trauma Activation: Alert Physician: ED Physician; Name: Mey; Notified At: 20:26; Arrived At: 20:26 Physician: General Surgeon; Name: ; Notified At: 20:26; Arrived At: Physician: Radiology; Name: ; Notified At: 20:26; Arrived At: Physician: Respiratory; Name: ; Notified At: 20:26; Arrived At: Physician: Raghavendra; Name: ; Notified At: 20:26; Arrived At: Historical: - Allergies: 20:45 PENICILLINS; cc3 - Home Meds: 20:45 lisinopril 5 mg oral tab 1 tab once daily [Active]; clopidogrel 75 mg Oral tab 1 tab cc3 once daily [Active]; memantine 10 mg Oral tab 1 tab 2 times per day [Active]; ranitidine HCl 150 mg Oral cap 1 cap 2 times per day [Active]; metoprolol tartrate 50 mg Oral tab 1 tab 2 times per day [Active]; galantamine 24 mg Oral C24P 1 cap once daily [Active]; cyanocobalamin (vitamin B-12) 1,000 mcg Oral tab twice a day [Active]; amlodipine 5 mg tab 1 tab once daily [Active]; trazodone 100 mg Oral tab 1 tab nightly [Active]; insulin [Active]; simvastatin 20 mg Oral tab 1 tab once daily [Active]; - PMHx: 20:45 Alzheimers; Diabetes - IDDM; Hyperlipidemia; Hypertension; cc3 - Immunization history: Last tetanus immunization: unknown. - Social history:: Smoking status: Patient/guardian denies using tobacco. - Ebola Screening: : No symptoms or risks identified at this time. Screenin:32 Abuse screen: Denies threats or abuse. Nutritional screening: No deficits noted. ea Tuberculosis screening: No symptoms or risk factors identified. Fall Risk Fall in past 12 months (25 points). 21:00 Patient has been NPO before screening. The patient is alert, able to follow commands. cc3 The patient does not exhibit slurred or garbled speech The patient is not exhibiting difficulty speaking. The patient does not exhibit difficulty understanding words. The patient is able to swallow own secretions with no drooling or need for suction. Patient tolerated one teaspoon of water. No drooling, immediate coughing, gurgling, or clearing of the throat was noted. The patient tolerated 90mL of water. No drooling, immediate coughing, gurgling, or clearing of the throat was noted. The patient passed the bedside swallow screening. Oral medications may be given as ordered. Contact Physician for further diet orders. Provider notified of bedside swallow screening results: Dwight Mathias MD. Assessment: 20:40 Neuro: Level of Consciousness is awake, alert, Oriented to person, place. cc3 Cardiovascular: Rhythm is regular. 20:40 General: Appears in no apparent distress. comfortable, Behavior is calm, cooperative, cc3 appropriate for age. Pain: Denies pain. Respiratory: Airway is patent Respiratory effort is even, unlabored, Respiratory pattern is regular, symmetrical. GI: Abdomen is round non-distended. : No signs and/or symptoms were reported regarding the genitourinary system. EENT: No signs and/or symptoms were reported regarding the EENT system. Derm: Skin is fragile, Skin is pink, warm \T\ dry. normal. Musculoskeletal: Circulation, motion, and sensation intact. Range of motion: limited in bilateral lower limbs. Injury Description: syncope. 21:18 Reassessment: Patient appears in no apparent distress at this time. Patient and/or cc3 family updated on plan of care and expected duration. Pain level reassessed. Patient is alert, oriented x 3, equal unlabored respirations, skin warm/dry/pink. 22:55 Reassessment: Patient appears in no apparent distress at this time. Patient and/or cc3 family updated on plan of care and expected duration. Pain level reassessed. Patient is alert, oriented x 3, equal unlabored respirations, skin warm/dry/pink. 23:20 Reassessment: Patient appears in no apparent distress at this time. Patient and/or cc3 family updated on plan of care and expected duration. Pain level reassessed. Patient is alert, oriented x 3, equal unlabored respirations, skin warm/dry/pink. 04/19 00:23 Reassessment: Patient appears in no apparent distress at this time. Patient and/or cc3 family updated on plan of care and expected duration. Pain level reassessed. Patient is alert, oriented x 3, equal unlabored respirations, skin warm/dry/pink. 01:00 Reassessment: Patient appears in no apparent distress at this time. Patient and/or cc3 family updated on plan of care and expected duration. Pain level reassessed. Patient is alert, oriented x 3, equal unlabored respirations, skin warm/dry/pink. Room available at 230, report called and handed over to MANJU German for continuity of care and management. Patient denies pain at this time. Patient states feeling better. 01:35 Reassessment: Patient appears in no apparent distress at this time. Patient and/or cc3 family updated on plan of care and expected duration. Pain level reassessed. Patient is alert, oriented x 3, equal unlabored respirations, skin warm/dry/pink. Patient left ER for admission vitally stable by stretcher escorted by cable television line technician Dick and the patient's family. No valuables left in the patient's room. Patient denies pain at this time. Patient states feeling better. Patient states symptoms have improved. Vital Signs: 04/18 20:31 BP 120 / 88; Pulse 75; Resp 19; Temp 98; Pulse Ox 99% on R/A; Weight 68.04 kg; Height 6 ea ft. (182.88 cm); 22:15 BP 126 / 63; Pulse 80; Resp 15 S; Pulse Ox 98% on R/A; cc3 23:20 BP 135 / 68; Pulse 80; Resp 15 S; Pulse Ox 97% on R/A; cc3 04/19 00:04 BP 145 / 89; Pulse 81; Resp 13 S; Pulse Ox 97% on R/A; cc3 01:18 BP 141 / 78; Pulse 85; Resp 15 S; Pulse Ox 97% on R/A; cc3 04/18 20:31 Body Mass Index 20.34 (68.04 kg, 182.88 cm) ea ED Course: 04/18 20:31 Patient arrived in ED. ea 20:32 Arm band placed on right wrist. Patient placed in an exam room, on a stretcher, on ea satellite project site monitor, on pulse oximetry. 20:32 Patient has correct armband on for positive identification. Bed in low position. Call ea light in reach. Side rails up X2. 20:38 Triage completed. ea 20:39 Dwight Mathias MD is Attending Physician. tw4 21:10 Inserted saline lock: 22 gauge in left forearm, using aseptic technique. Blood cc3 collected. 21:14 CT Head Brain wo Cont In Process Unspecified. EDMS 21:16 Elizabeth Hansen is Primary Nurse. cc3 22:36 Maribell Barroso MD is Hospitalizing Provider. tw4 04/19 01:35 No provider procedures requiring assistance completed. Patient admitted, IV remains in cc3 place. Administered Medications: No medications were administered Point of Care Testing: Blood Glucose: 04/18 21:18 Blood Glucose: 167 mg/dL; margy Ranges: Outcome: 22:37 Decision to Hospitalize by Provider. tw4 04/19 01:35 Admitted to Med/surg accompanied by tech, family with patient, via stretcher, room 230, cc3 with chart, Report called to MANJU Geramn Condition: stable Instructed on the need for admit, Demonstrated understanding of instructions. 01:36 Patient left the ED. cc3 Signatures: Dispatcher [employer] Janessa Miranda RN Tiffanie Lee RN RN Dwight Rodriguez MD MD tw4 Elizabeth Hansen cc3 Corrections: (The following items were deleted from the chart) 07:11 07 20:40 Neuro: Level of Consciousness is awake, alert, Oriented to person, place, cc3 cc3 04/19 07:13 01:35 Reassessment: Patient appears in no apparent distress at this time. Patient cc3 and/or family updated on plan of care and expected duration. Pain level reassessed. Patient is alert, oriented x 3, equal unlabored respirations, skin warm/dry/pink. Room available at 230, report called and handed over to MANJU German for continuity of care and management. Patient denies pain at this time. Patient states feeling better. cc3
--- NOTE | 2019-04-18 22:38 | EDPHYS ---
Physician Documentation [facility] Name: Edward Ambrosio Age: 78 yrs Sex: Male : 1940 Arrival Date: 04/18/2019 Time: 20:31 Bed 2 Private MD: ED Physician Dwight Mathias HPI: 04/19 01:14 This 78 yrs old Male presents to ER via EMS with complaints of Syncope. tw4 01:14 The patient has experienced syncope, became unresponsive, collapsed. Onset: The tw4 symptoms/episode began/occurred just prior to arrival. Duration: This was a single episode, that lasted 10 second(s). Context: the episode(s) was witnessed, by family. Associated injury: The patient did not suffer any apparent associated injury. Associated signs and symptoms: The patient has no apparent associated signs or symptoms. The patient has not experienced similar symptoms in the past. Historical: - Allergies: 04/18 20:45 PENICILLINS; cc3 - Home Meds: 20:45 lisinopril 5 mg oral tab 1 tab once daily [Active]; clopidogrel 75 mg Oral tab 1 tab cc3 once daily [Active]; memantine 10 mg Oral tab 1 tab 2 times per day [Active]; ranitidine HCl 150 mg Oral cap 1 cap 2 times per day [Active]; metoprolol tartrate 50 mg Oral tab 1 tab 2 times per day [Active]; galantamine 24 mg Oral C24P 1 cap once daily [Active]; cyanocobalamin (vitamin B-12) 1,000 mcg Oral tab twice a day [Active]; amlodipine 5 mg tab 1 tab once daily [Active]; trazodone 100 mg Oral tab 1 tab nightly [Active]; insulin [Active]; simvastatin 20 mg Oral tab 1 tab once daily [Active]; - PMHx: 20:45 Alzheimers; Diabetes - IDDM; Hyperlipidemia; Hypertension; cc3 - Immunization history: Last tetanus immunization: unknown. - Social history:: Smoking status: Patient/guardian denies using tobacco. - Ebola Screening: : No symptoms or risks identified at this time. ROS: 04/19 01:14 Constitutional: Negative for fever, chills, and weight loss, Eyes: Negative for injury, tw4 pain, redness, and discharge, Cardiovascular: Negative for chest pain, palpitations, and edema, Respiratory: Negative for shortness of breath, cough, wheezing, and pleuritic chest pain, Abdomen/GI: Negative for abdominal pain, nausea, vomiting, diarrhea, and constipation, Back: Negative for injury and pain, MS/Extremity: Negative for injury and deformity, Skin: Negative for injury, rash, and discoloration. Neuro: Positive for altered mental status, syncope, Negative for numbness, seizure activity, speech changes, weakness. Exam: 01:14 Constitutional: This is a well developed, well nourished patient who is awake, alert, tw4 and in no acute distress. Head/Face: Normocephalic, atraumatic. Chest/axilla: Normal chest wall appearance and motion. Nontender with no deformity. No lesions are appreciated. Cardiovascular: Regular rate and rhythm with a normal S1 and S2. No gallops, murmurs, or rubs. Normal PMI, no JVD. No pulse deficits. Respiratory: Lungs have equal breath sounds bilaterally, clear to auscultation and percussion. No rales, rhonchi or wheezes noted. No increased work of breathing, no retractions or nasal flaring. Abdomen/GI: Soft, non-tender, with normal bowel sounds. No distension or tympany. No guarding or rebound. No evidence of tenderness throughout. Back: No spinal tenderness. No costovertebral tenderness. Full range of motion. MS/ Extremity: Pulses equal, no cyanosis. Neurovascular intact. Full, normal range of motion. 01:14 Neuro: Orientation: to person, place, Mentation: confused, Memory: is normal, Cranial nerves: grossly normal, Motor: is normal, Sensation: is normal, no obvious gross deficits. Vital Signs: 04/18 20:31 BP 120 / 88; Pulse 75; Resp 19; Temp 98; Pulse Ox 99% on R/A; Weight 68.04 kg; Height 6 ea ft. (182.88 cm); 22:15 BP 126 / 63; Pulse 80; Resp 15 S; Pulse Ox 98% on R/A; cc3 23:20 BP 135 / 68; Pulse 80; Resp 15 S; Pulse Ox 97% on R/A; cc3 04/19 00:04 BP 145 / 89; Pulse 81; Resp 13 S; Pulse Ox 97% on R/A; cc3 01:18 BP 141 / 78; Pulse 85; Resp 15 S; Pulse Ox 97% on R/A; cc3 04/18 20:31 Body Mass Index 20.34 (68.04 kg, 182.88 cm) ea MDM: 04/18 20:39 Patient medically screened. 04/19 01:14 Differential Diagnosis: aortic aneurysm, cardiac arrhythmia, cerebrovascular accident, tw4 idiopathic syncope, vasovagal episode. Data reviewed: vital signs, EMS record. Data interpreted: Pulse oximetry: Interpretation: normal. Counseling: I had a detailed discussion with the patient and/or guardian regarding: the historical points, exam findings, and any diagnostic results supporting the discharge/admit diagnosis, lab results, radiology results. Physician consultation: Maribell Barroso MD regarding admission, need to evaluate the patient as soon as possible, and will see patient in inpatient room. 04/18 20:39 Order name: Basic Metabolic Panel; Complete Time: 22:35 [facility] 04/18 22:35 Interpretation: Normal except: CL 108; GLUC 152; GFR 66. [facility] 04/18 20:39 Order name: CBC with Diff; Complete Time: 22:35 [facility] 04/18 22:35 Interpretation: Normal except: RBC 3.62; HGB 11.9; HCT 34.6; PLT 158. 04/18 20:39 Order name: Ckmb 04/18 20:39 Order name: CPK; Complete Time: 22:36 [facility] 04/18 22:36 Interpretation: Normal except: CPK 31. [facility] 04/18 20:39 Order name: Hepatic Function; Complete Time: 22:36 [facility] 04/18 22:36 Interpretation: Normal except: AST 9; ALK 118; ALB 3.1; A/G 0.9. 04/18 20:39 Order name: Lipase; Complete Time: 22:36 [facility] 04/18 22:36 Interpretation: Within normal limits: LIP 75. 04/18 20:39 Order name: Call for Old EKG; Complete Time: 01:35 04/18 20:39 Order name: CT Head Brain wo Cont 04/18 20:39 Order name: Magnesium; Complete Time: 22:36 [facility] 04/18 22:36 Interpretation: Within normal limits: MG 1.9. 04/18 20:39 Order name: Protime (+inr); Complete Time: 22:36 tw4 04/18 22:36 Interpretation: Normal except: PT 14.4. 04/18 20:39 Order name: Ptt, Activated 04/18 20:39 Order name: Troponin (emerg Dept Use Only) tw4 04/18 20:39 Order name: EKG; Complete Time: 20:43 tw4 04/18 21:56 Order name: Urine Dipstick--Ancillary (enter results) 4 04/18 20:39 Order name: Cardiac monitoring; Complete Time: 20:59 4 04/18 20:39 Order name: EKG - Nurse/Tech; Complete Time: 21:16 4 04/18 20:39 Order name: IV Saline Lock; Complete Time: 21:16 04/18 20:39 Order name: Labs collected and sent; Complete Time: 21:16 4 04/18 20:39 Order name: NPO; Complete Time: 20:59 tw4 04/18 20:39 Order name: O2 Per Protocol; Complete Time: 20:59 04/18 20:39 Order name: O2 Sat Monitoring; Complete Time: 20:59 4 04/18 20:39 Order name: Urine Dipstick-Ancillary (obtain specimen); Complete Time: 21:38 tw4 EC:01 Rate is 76 beats/min. Rhythm is regular, 1st Degree Block. QRS [place] is Normal. NE tw4 interval is prolonged. QRS interval is normal. QT interval is normal. No Q waves. T waves are Normal in leads V1, V2, V3. T waves are Inverted. No ST changes noted. Clinical impression: NSR w/ Non-specific ST/T Changes and Abnormal EKG without significant change. Interpreted by me. Reviewed by me. Administered Medications: No medications were administered Point of Care Testing: Blood Glucose: 04/18 21:18 Blood Glucose: 167 mg/dL; ea Ranges: Critical Glucose Levels:Adult <50 mg/dl or >400 mg/dl <40 mg/dl or >180 mg/dl Disposition: 04/18/19 22:37 Hospitalization ordered by Maribell Barroso for Inpatient Admission. Preliminary diagnosis is Syncope and collapse. - Bed requested for Telemetry/MedSurg (observation). - Status is Inpatient Admission. cc3 - Condition is Stable. - Problem is new. - Symptoms have improved. UTI on Admission? No Signatures: Dispatcher [employer] EDMS Chris Marcano RN RN la1 Tiffanie Honeycutt RN RN ea Wadley, Terrence, MD MD tw4 Elizabeth Hansen cc3 Corrections: (The following items were deleted from the chart) 04/19 00:49 04/18 22:37 Hospitalization Ordered by Maribell Barroso MD for Inpatient Admission. la1 Preliminary diagnosis is Syncope and collapse. Bed requested for Telemetry/MedSurg (observation). Status is Inpatient Admission. Condition is Stable. Problem is new. Symptoms have improved. UTI on Admission? No. tw4 04/19 01:36 00:49 04/18/2019 22:37 Hospitalization Ordered by Maribell Barroso MD for Inpatient cc3 Admission. Preliminary diagnosis is Syncope and collapse. Bed requested for Telemetry/MedSurg (observation). Status is Inpatient Admission. Condition is Stable. Problem is new. Symptoms have improved. UTI on Admission? No. la1
[2019-04-18 23:49] LABS: Urine Blood 2+ (NEG); Urine Glucose TRACE (NEG); Urine Protein TRACE (NEG); Urine pH 7.5 (5.0-7.0)
[2019-04-19] MEDS ORDERED: MORPHINE 4 MG/ML SYR IV PRN (00:38)
[2019-04-19] MEDS ORDERED: ALPRAZOLAM 0.25 MG TABLET PO PRN (00:38)
[2019-04-19] MEDS ORDERED: MIDAZOLAM HCL 2 MG/2 ML INJ ONE (02:43)
[2019-04-19 02:48] VITALS: BMI 21.9
[2019-04-19 04:06] LABS: Hematocrit 31.8 % (39.6-49.0); RBC Red Blood Cell Count 3.34 M/uL (4.33-5.43)
[2019-04-19 04:10] LABS: Absolute Lymphocytes (CBC) 2.1 K/uL (0.7-4.9); Basophils % 0.5 % (0-1.3); MPV 8.6 fL (7.6-11.3)
[2019-04-19 05:13] LABS: Blood Morphology Comment NOT SEEN (NOT SEEN); Platelet Estimate ADEQ
[2019-04-19] MEDS: ENOXAPARIN 40 MG/0.4 ML SQ SCH (08:30)
[2019-04-19] MEDS: ASPIRIN EC 81 MG TAB PO SCH (08:30)
--- NOTE | 2019-04-19 09:02 | P.HP ---
Certification for Inpatient Patient admitted to: Observation With expected LOS: <2 Midnights Patient will require the following post-hospital care: None Practitioner: I am a practitioner with admitting privileges, knowledge of patient current condition, hospital course, and medical plan of care. Services: Services provided to patient in accordance with Admission requirements found in Title 42 Section 412.3 of the Code of Federal Regulations Patient History Date of Service: 04/19/19 Reason for admission: Syncopal episode with collapse History of Present Illness: Patient is a 78-year-old gentleman who was at home and the kitchen when he suddenly became faint. His family members were there and were able to grab and and lay him down. He was unresponsive for about 10-20 seconds. He came back around and was not aware of what had happened. He apparently was a little confused and does not recall the event occurring. He has a history of carotid artery disease as well as Alzheimer's disease. He tends to be slightly forgetful any way. Neurologically he appears to be back to his baseline according to family. He will be admitted to the hospital for further workup. Allergies Penicillins Allergy (Verified 04/19/19 02:17) Itching/Hives/Rash Home Medications: Amlodipine [Norvasc*] 1 tab PO DAILY 04/19/19 Clopidogrel Bisulfate [Plavix*] 1 tab PO DAILY 04/19/19 Cyanocobalamin (Vitamin B-12) [Vitamin B-12] 1 cap PO BID 04/19/19 Galantamine HBr [Galantamine ER] 24 mg PO DAILY 04/19/19 Lisinopril 1 tab PO DAILY 04/19/19 Memantine HCl [Namenda] 10 mg PO BID 04/19/19 Metoprolol Tartrate [Lopressor] 50 mg PO BID 04/19/19 Ranitidine [Zantac*] 1 cap PO BID 04/19/19 Simvastatin 1 tab PO DAILY 04/19/19 Trazodone HCl 100 mg PO BEDTIME 04/19/19 - Past Medical/Surgical History Diabetic: Yes -: Alzheimers -: IDDM -: hypertension -: hyperlipidemia -: left leg tumor removed - Family History Mother Medical History: Hypertension, Diabetes Father Medical History: Hypertension, Diabetes - Social History Smoking Status: Former smoker Alcohol use: No CD- Drugs: No Caffeine use: Yes Place of Residence: Home Review of Systems 10-point ROS is otherwise unremarkable Physical Examination - Vital Signs Temperature: 97.3 F Blood Pressure: 151/69 Pulse: 82 Respirations: 16 Pulse Ox (%): 97 - Physical Exam General: Alert, In no apparent distress, Oriented x2, Demented HEENT: Atraumatic, PERRLA, Mucous membr. moist/pink, EOMI, Sclerae nonicteric Neck: Supple, No LAD, Without JVD or thyroid abnormality, Bruit Respiratory: Clear to auscultation bilaterally, Normal air movement Cardiovascular: Regular rate/rhythm, Normal S1 S2, Systolic murmur Gastrointestinal: Normal bowel sounds, No tenderness Musculoskeletal: No clubbing, No swelling, No tenderness Integumentary: No rashes Neurological: Normal gait, Normal speech, Normal tone, Sensation intact, Cranial nerves 3-12 intact, Normal affect, Abnormal strength Lymphatics: No axilla or inguinal lymphadenopathy - Studies Laboratory Data (last 24 hrs) 04/18/19 21:10: PT 14.4 H, INR 1.23, APTT 31.9 04/18/19 21:10: WBC 6.1, Hgb 11.9 L, Hct 34.6 L, Plt Count 158 D 04/18/19 21:10: Sodium 143, Potassium 3.5, BUN 9, Creatinine 1.08, Glucose 152 H , Magnesium 1.9, Total Bilirubin 0.4, AST 9 L, ALT 13, Alkaline Phosphatase 118 H, Lipase 75 Assessment & Plan - Problems (Diagnosis) (1) Syncope and collapse Current Visit: Yes Status: Acute (2) Alzheimer's dementia Current Visit: Yes Status: Acute (3) Hypertension Current Visit: No Status: Chronic Qualifiers: (4) Bilateral carotid artery disease Current Visit: Yes Status: Acute - Plan Plan: 1. IV fluids 2. Monitor on telemetry 3. Echocardiogram and carotid Doppler 4. Evaluate for cardiogenic versus neurogenic syncope 5. Neurochecks every 4-6 hr x2 6. GI and DVT prophylaxis Discharge Plan: Home Plan to discharge in: 48 Hours - Advance Directives Does patient have a Living Will: No Does patient have a Durable POA for Healthcare: No - Code Status/Comfort Care Code Status Assessed: Yes Code Status: Full Code Critical Care: No Time Spent Managing PTS Care (In Minutes): 45
--- NOTE | 2019-04-19 09:12 | EKG ---
Test Date: 2019-04-18 Test Time: 21:03:54 Rotary Operator: PREETI MEASUREMENT RESULTS: Intervals: Rate: 76 MN: 228 QRSD: 128 QT: 440 QTc: 495 [place]: P: 76 MN: 228 QRS: 47 T: 50 INTERPRETIVE STATEMENTS: Sinus rhythm with 1st degree AV block Right bundle branch block Abnormal ECG Compared to ECG 04/05/2019 15:44:27 First degree AV block now present Electronically Signed On 04-19-19 09:10:39 CDT by Fredi George
[2019-04-19] MEDS: CLOPIDOGREL 75 MG TABLET PO SCH (10:09)
[2019-04-19] MEDS: LISINOPRIL 5 MG TAB PO SCH (10:09)
[2019-04-19] MEDS: METOPROLOL TAR 50 MG TAB PO SCH ×2 (10:09→20:17)
--- NOTE | 2019-04-19 12:35 | RAD REPORT ---
EXAM DESCRIPTION: - CP - 04/19/2019 10:45 am CLINICAL HISTORY: syncope Headache, drowsiness COMPARISON: ABDOMINAL EXAM COMPLETE dated 07/19/2011Head C Spine Mpr Wo Con dated 03/18/2019 TECHNIQUE: Real-time sonographic evaluation of both carotid systems was performed. Doppler interroga tion was performed with waveform tracing bilaterally. FINDINGS: Moderate hard plaque is seen in the right common carotid artery bulb, mid and distal aspec ts. No flow is seen within the right internal carotid artery, likely chronically occluded. Moderate hard plaque is seen in the left carotid bulb. No evidence of a hemodynamically significant stenosis on the left. Antegrade flow seen in both vertebral arteries. 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 No hemodynamically significant left sciatic carotid stenosis.
[2019-04-19] MEDS ORDERED: GLUCAGON 1 MG/VIAL IM PRN (16:45)
[2019-04-19] MEDS ORDERED: D50W 25 GM/50 ML SYRINGE IV PRN (16:45)
[2019-04-19] MEDS: INSULIN -REGULAR HUMAN 50 UNIT/0.5 ML ML SQ SCH ×2 (17:10→21:00)
[2019-04-19] MEDS: MEMANTINE HCL 10 MG TABLET PO SCH (18:31)
[2019-04-19] MEDS: TRAZODONE 50 MG TABLET PO SCH (18:31)
[2019-04-19] MEDS: CYANOCOBALAMIN 1,000 MCG TAB PO SCH (20:17)
[2019-04-19] MEDS: ATORVASTATIN 10 MG TAB PO SCH (20:17)
[2019-04-19] MEDS: RANITIDINE 150 MG TABLET PO SCH (20:17)
[2019-04-19] MEDS ORDERED: LORazepam 2 MG/ML VIAL IV ONE (22:20)
[2019-04-19] MEDS ORDERED: HYDROMORPHONE HCL 0.5 MG/0.5 ML INJ IV ONE (22:21)
[2019-04-20] MEDS: LISINOPRIL 5 MG TAB PO SCH (08:54)
[2019-04-20] MEDS: INSULIN -REGULAR HUMAN 50 UNIT/0.5 ML ML SQ SCH ×4 (08:54→21:01)
[2019-04-20] MEDS: ENOXAPARIN 40 MG/0.4 ML SQ SCH (08:54)
[2019-04-20] MEDS: RANITIDINE 150 MG TABLET PO SCH ×2 (08:55→21:06)
[2019-04-20] MEDS: MEMANTINE HCL 10 MG TABLET PO SCH ×2 (08:55→21:02)
[2019-04-20] MEDS: AMLODIPINE 5 MG TAB PO SCH (08:55)
[2019-04-20] MEDS: METOPROLOL TAR 50 MG TAB PO SCH ×2 (08:55→21:01)
[2019-04-20] MEDS: CLOPIDOGREL 75 MG TABLET PO SCH (08:55)
[2019-04-20] MEDS: CYANOCOBALAMIN 1,000 MCG TAB PO SCH ×2 (08:56→21:06)
[2019-04-20] MEDS: ASPIRIN EC 81 MG TAB PO SCH (08:56)
--- NOTE | 2019-04-20 10:20 | ECHO ---
HEIGHT: 6 ft 0 in WEIGHT: 162 lb 0 oz DATE OF STUDY: 04/20/[address]: Maribell Barroso MD 2-DIMENSIONAL: YES M.MODE: YES DOPPLER: YES COLOR FLOW: YES TDS: NO PORTABLE: NO DEFINITY: NO BUBBLE STUDY: NO DIAGNOSIS: SYNCOPE CARDIAC HISTORY: CATHERIZATION: NO SURGERY: YES PROSTHETIC VALVE: NO PACEMAKER: NO MEASUREMENTS (cm) DIASTOLIC (NORMALS) SYSTOLIC (NORMALS) IVSd 1.0 (0.6-1.2) LA Diam 4.1 (1.9-4.0) LVEF 65% LVIDd 3.7 (3.5-5.7) LVIDs 2.4 (2.0-3.5) %FS 35% LVPWd 1.0 (0.6-1.2) Ao Diam 2.8 (2.0-3.7) 2 DIMENSIONAL ASSESSMENT: RIGHT ATRIUM: NORMAL LEFT ATRIUM: DILATED RIGHT VENTRICLE: NORMAL LEFT VENTRICLE: NORMAL TRICUSPID VALVE: NORMAL MITRAL VALVE: NORMAL PULMONIC VALVE: NORMAL AORTIC VALVE: NORMAL PERICARDIAL EFFUSION: NONE AORTIC ROOT: NORMAL LEFT VENTRICULAR WALL MOTION: NORMAL DOPPLER/COLOR FLOW: MILD AORTIC AND TRICUSPID REGURGITATION. MODERATE PULMONARY HYPERTENSION. ESTIMATED RIGHT VENTRICULAR SYSTOLIC PRESSURE 50mmHg. ESTIMATED RIGHT ATRIAL PRESSURE 12 mmHg. COMMENTS: NORMAL LEFT VENTRICULAR EJECTION FRACTION. DILATED LEFT ATRIUM. MILD AORTIC AND TRICUSPID REGURGITATION. MODERATE PULMONARY HYPERTENSION. TECHNOLOGIST: Isatu RIVAS
--- NOTE | 2019-04-20 11:44 | RAD REPORT ---
EXAM DESCRIPTION: CT HEAD WITHOUT IV CONTRAST CLINICAL HISTORY: SYNCOPE. COMPARISON: None. TECHNIQUE: CT scan of the brain without IV contrast. This exam was performed according to our depa rtmental dose-optimization program, which includes automated exposure control, adjustment of the mA a nd/or kV according to patient size and/or use of iterative reconstruction technique. FINDINGS: There are scattered areas of hypoattenuation within the periventricular white matter, whic h likely represent chronic microvascular ischemia. No evidence of acute infarction, intracranial hemo rrhage, extra-axial fluid collection, or midline shift. No air-fluid levels are seen in the paranasal sinuses to suggest acute sinusitis. No depressed skull fracture. IMPRESSION: 1. No acute intracranial findings. 2. Senescent changes with chronic microvascular ischemia. Electronically signed by: Mike Null MD 04/18/2019 9:27 PM CDT Due to temporary technical issues with the PACS/Fluency reporting system, reports are being signed by the in house radiologist as a courtesy to ensure prompt reporting. The interpreting radiologist is f ully responsible for the content of the report.
[2019-04-20] MEDS: GALANTAMINE 24 MG PO SCH (13:01)
[2019-04-20] MEDS ORDERED: HALOPERIDOL LACT 5 MG/ML INJ IM PRN (14:10)
--- NOTE | 2019-04-20 16:54 | P.PN ---
Subjective Date of Service: 04/20/19 Chief Complaint: Syncopal episode with collapse Pt seen and examined at bedside. Chart reviewed. Case DW with Family at bedside. This AM pt is complaining of Dizzyness on gettign up. Orthostatic Are positive. Overall doing well. Working with PT Review of Systems 10-point ROS is otherwise unremarkable Physical Examination - Vital Signs Temperature: 97.6 F Blood Pressure: 120/56 Pulse: 69 Respirations: 18 Pulse Ox (%): 95 - Physical Exam General: Alert, In no apparent distress HEENT: Atraumatic, PERRLA, EOMI Neck: Supple, JVD not distended Respiratory: Clear to auscultation bilaterally, Normal air movement Cardiovascular: Regular rate/rhythm, Normal S1 S2 Gastrointestinal: Normal bowel sounds, No tenderness Musculoskeletal: No tenderness Integumentary: No rashes Neurological: Normal speech, Normal tone, Normal affect Lymphatics: No axilla or inguinal lymphadenopathy - Studies Medications List Reviewed: Yes Assessment And Plan - Current Problems (Diagnosis) (1) Syncope and collapse Current Visit: Yes Status: Acute Plan: Pt with Syncope and sudden collapse. Most Likely Vasovagal vs Carotid Disease -Head CT negative for acute abnormality -Carotid Doppler + for BL carotid Disease - Pt poor candidate for surgical Repair. Continue with plavix -+ Orthostatics -ECHO with no acute abnormality -Will have pt work with PT at this time (2) Bilateral carotid artery disease Current Visit: Yes Status: Chronic Qualifiers: Carotid artery disease type: occlusion Qualified Code(s): I65.23 - Occlusion and stenosis of bilateral carotid arteries (3) Alzheimer's dementia Current Visit: Yes Status: Chronic Qualifiers: Alzheimer's disease onset: late-onset Dementia behavioral disturbance: without behavioral disturbance Qualified Code(s): G30.1 - Alzheimer's disease with late onset; F02.80 - Dementia in other diseases classified elsewhere without behavioral disturbance (4) Hypertension Current Visit: No Status: Chronic Qualifiers: Hypertension type: essential hypertension - Plan Pending Improvement Discharge Plan: Home Plan to discharge in: Greater than 2 days - Code Status/Comfort Care Code Status Assessed: Yes Critical Care: No
[2019-04-20] MEDS: ATORVASTATIN 10 MG TAB PO SCH (21:03)
[2019-04-20] MEDS: TRAZODONE 50 MG TABLET PO SCH (21:03)
[2019-04-21] MEDS ORDERED: NA CHLORIDE 0.9% 250 ML IV PRN (02:32)
[2019-04-21] MEDS: INSULIN -REGULAR HUMAN 50 UNIT/0.5 ML ML SQ SCH ×4 (08:37→20:22)
[2019-04-21] MEDS: MEMANTINE HCL 10 MG TABLET PO SCH ×2 (08:38→20:22)
[2019-04-21] MEDS: METOPROLOL TAR 50 MG TAB PO SCH ×2 (08:38→22:08)
[2019-04-21] MEDS: LISINOPRIL 5 MG TAB PO SCH (08:38)
[2019-04-21] MEDS: ASPIRIN EC 81 MG TAB PO SCH (08:38)
[2019-04-21] MEDS: RANITIDINE 150 MG TABLET PO SCH ×2 (08:38→20:22)
[2019-04-21] MEDS: CYANOCOBALAMIN 1,000 MCG TAB PO SCH ×2 (08:39→20:22)
[2019-04-21] MEDS: AMLODIPINE 5 MG TAB PO SCH (08:39)
[2019-04-21] MEDS: GALANTAMINE 24 MG PO SCH (08:39)
[2019-04-21] MEDS: CLOPIDOGREL 75 MG TABLET PO SCH (08:39)
--- NOTE | 2019-04-21 15:21 | P.PN ---
Subjective Date of Service: 04/21/19 Chief Complaint: Syncopal episode with collapse Pt seen and examined at bedside. Chart reviewed. Case DW with Family at bedside. Patient currently working with physical therapy however having orthostatics hypotension despite the resuscitation efforts. Most likely secondary to his chronic condition which includes carotid artery stenosis along with ischemic bowel Review of Systems 10-point ROS is otherwise unremarkable Physical Examination - Vital Signs Temperature: 98.0 F Blood Pressure: 119/57 Pulse: 65 Respirations: 16 Pulse Ox (%): 93 - Physical Exam General: Alert, In no apparent distress, Demented HEENT: Atraumatic, PERRLA, EOMI Neck: Supple, JVD not distended Respiratory: Clear to auscultation bilaterally, Normal air movement Cardiovascular: Regular rate/rhythm, Normal S1 S2 Gastrointestinal: Normal bowel sounds, No tenderness Musculoskeletal: No tenderness Integumentary: No rashes Neurological: Normal speech, Normal tone, Normal affect Lymphatics: No axilla or inguinal lymphadenopathy - Studies Medications List Reviewed: Yes Assessment And Plan - Current Problems (Diagnosis) (1) Syncope and collapse Current Visit: Yes Status: Acute Plan: Pt with Syncope and sudden collapse. Most Likely Vasovagal vs Carotid Disease -Head CT negative for acute abnormality -Carotid Doppler + for BL carotid Disease - Pt poor candidate for surgical Repair. Continue with plavix -+ Orthostatics while working with physical therapy. -ECHO with no acute abnormality -currently will need senior care placement for PT (2) Bilateral carotid artery disease Current Visit: Yes Status: Chronic Plan: Medical management currently as patient is poor surgical candidate Qualifiers: Carotid artery disease type: occlusion Qualified Code(s): I65.23 - Occlusion and stenosis of bilateral carotid arteries (3) Alzheimer's dementia Current Visit: Yes Status: Chronic Plan: Currently alert and oriented x3 was does have sundowners at around 5:00 p.m. responds well to Haldol Qualifiers: Alzheimer's disease onset: late-onset Dementia behavioral disturbance: without behavioral disturbance Qualified Code(s): G30.1 - Alzheimer's disease with late onset; F02.80 - Dementia in other diseases classified elsewhere without behavioral disturbance (4) Hypertension Current Visit: No Status: Chronic Plan: Stable at this time Qualifiers: Hypertension type: essential hypertension - Plan Pending Improvement at this time. Will transfer patient to a senior care facility for PT needs once accepted Discharge Plan: Other Plan to discharge in: Greater than 2 days - Code Status/Comfort Care Code Status Assessed: Yes Critical Care: No
[2019-04-21] MEDS: TRAZODONE 50 MG TABLET PO SCH (20:22)
[2019-04-21] MEDS: ATORVASTATIN 10 MG TAB PO SCH (20:22)
[2019-04-22] MEDS: INSULIN -REGULAR HUMAN 50 UNIT/0.5 ML ML SQ SCH ×4 (08:43→20:00)
[2019-04-22] MEDS: CLOPIDOGREL 75 MG TABLET PO SCH (08:44)
[2019-04-22] MEDS: METOPROLOL TAR 50 MG TAB PO SCH ×2 (08:44→19:55)
[2019-04-22] MEDS: MEMANTINE HCL 10 MG TABLET PO SCH ×2 (08:44→19:55)
[2019-04-22] MEDS: CYANOCOBALAMIN 1,000 MCG TAB PO SCH ×2 (08:45→19:55)
[2019-04-22] MEDS: RANITIDINE 150 MG TABLET PO SCH ×2 (08:45→19:56)
[2019-04-22] MEDS: ASPIRIN EC 81 MG TAB PO SCH (08:46)
[2019-04-22] MEDS: AMLODIPINE 5 MG TAB PO SCH (08:46)
[2019-04-22] MEDS: LISINOPRIL 5 MG TAB PO SCH (08:46)
[2019-04-22] MEDS: GALANTAMINE 24 MG PO SCH (08:47)
--- NOTE | 2019-04-22 12:27 | P.PN ---
Subjective Date of Service: 04/22/19 Chief Complaint: Syncopal episode with collapse Pt seen and examined at bedside. Chart reviewed. Case DW with Family at bedside. Patient working with PT at this time. Improving slowly. Currently awaiting [facility] placement Review of Systems 10-point ROS is otherwise unremarkable Physical Examination - Vital Signs Temperature: 97.6 F Blood Pressure: 147/67 Pulse: 76 Respirations: 16 Pulse Ox (%): 94 - Physical Exam General: Alert, In no apparent distress HEENT: Atraumatic, PERRLA, EOMI Neck: Supple, JVD not distended Respiratory: Clear to auscultation bilaterally, Normal air movement Cardiovascular: Regular rate/rhythm, Normal S1 S2 Gastrointestinal: Normal bowel sounds, No tenderness Musculoskeletal: No tenderness Integumentary: No rashes Neurological: Normal speech, Normal tone, Normal affect Lymphatics: No axilla or inguinal lymphadenopathy - Studies Medications List Reviewed: Yes Assessment And Plan - Current Problems (Diagnosis) (1) Syncope and collapse Current Visit: Yes Status: Acute Plan: Pt with Syncope and sudden collapse. Most Likely Vasovagal vs Carotid Disease -Head CT negative for acute abnormality -Carotid Doppler + for BL carotid Disease - Pt poor candidate for surgical Repair. Continue with plavix -+ Orthostatics while working with physical therapy. -ECHO with no acute abnormality -currently will need [facility] placement for PT (2) Bilateral carotid artery disease Current Visit: Yes Status: Chronic Plan: Medical management currently as patient is poor surgical candidate Qualifiers: Carotid artery disease type: occlusion Qualified Code(s): I65.23 - Occlusion and stenosis of bilateral carotid arteries (3) Alzheimer's dementia Current Visit: Yes Status: Chronic Plan: Currently alert and oriented x3 was does have sundowners at around 5:00 p.m. responds well to Haldol Qualifiers: Alzheimer's disease onset: late-onset Dementia behavioral disturbance: without behavioral disturbance Qualified Code(s): G30.1 - Alzheimer's disease with late onset; F02.80 - Dementia in other diseases classified elsewhere without behavioral disturbance (4) Hypertension Current Visit: No Status: Chronic Plan: Stable at this time Qualifiers: Hypertension type: essential hypertension - Plan Pending Improvement at this time. Will transfer patient to a [facility] facility for PT needs once accepted Discharge Plan: Other Plan to discharge in: Greater than 2 days - Code Status/Comfort Care Code Status Assessed: Yes Critical Care: No
[2019-04-22] MEDS: ACETAMINOPHEN 500 MG TAB PO PRN (12:31)
[2019-04-22] MEDS: ATORVASTATIN 10 MG TAB PO SCH (19:55)
[2019-04-22] MEDS: TRAZODONE 50 MG TABLET PO SCH (19:56)
[2019-04-23] MEDS: INSULIN -REGULAR HUMAN 50 UNIT/0.5 ML ML SQ SCH ×4 (08:39→20:14)
[2019-04-23] MEDS: ASPIRIN EC 81 MG TAB PO SCH (08:41)
[2019-04-23] MEDS: GALANTAMINE 24 MG PO SCH (08:42)
[2019-04-23] MEDS: METOPROLOL TAR 50 MG TAB PO SCH ×2 (08:43→20:12)
[2019-04-23] MEDS: MEMANTINE HCL 10 MG TABLET PO SCH ×2 (08:44→20:11)
[2019-04-23] MEDS: AMLODIPINE 5 MG TAB PO SCH (08:46)
[2019-04-23] MEDS: CLOPIDOGREL 75 MG TABLET PO SCH (08:47)
[2019-04-23] MEDS: LISINOPRIL 5 MG TAB PO SCH (08:48)
[2019-04-23] MEDS: RANITIDINE 150 MG TABLET PO SCH ×2 (08:49→20:11)
[2019-04-23] MEDS: CYANOCOBALAMIN 1,000 MCG TAB PO SCH ×2 (08:49→20:12)
--- NOTE | 2019-04-23 14:34 | P.PN ---
Subjective Date of Service: 04/23/19 Chief Complaint: Syncopal episode with collapse Subjective: Improving, Working w/ PT Pt seen and examined at bedside. Chart reviewed. Case DW with Family at bedside. Patient working with PT at this time. Improving slowly. Currently awaiting alf placement Review of Systems 10-point ROS is otherwise unremarkable Physical Examination - Vital Signs Temperature: 98.3 F Blood Pressure: 153/71 Pulse: 69 Respirations: 18 Pulse Ox (%): 97 - Physical Exam General: Alert, In no apparent distress HEENT: Atraumatic, PERRLA, EOMI Neck: Supple, JVD not distended Respiratory: Clear to auscultation bilaterally, Normal air movement Cardiovascular: Regular rate/rhythm, Normal S1 S2 Gastrointestinal: Normal bowel sounds, No tenderness Musculoskeletal: No tenderness Integumentary: No rashes Neurological: Normal speech, Normal tone, Normal affect Lymphatics: No axilla or inguinal lymphadenopathy - Studies Medications List Reviewed: Yes Assessment And Plan - Current Problems (Diagnosis) (1) Syncope and collapse Current Visit: Yes Status: Acute Plan: Pt with Syncope and sudden collapse. Most Likely Vasovagal vs Carotid Disease -Head CT negative for acute abnormality -Carotid Doppler + for BL carotid Disease - Pt poor candidate for surgical Repair. Continue with plavix -+ Orthostatics while working with physical therapy. -ECHO with no acute abnormality -currently will need alf placement for PT, pending (2) Bilateral carotid artery disease Current Visit: Yes Status: Chronic Plan: Medical management currently as patient is poor surgical candidate Qualifiers: Carotid artery disease type: occlusion Qualified Code(s): I65.23 - Occlusion and stenosis of bilateral carotid arteries (3) Alzheimer's dementia Current Visit: Yes Status: Chronic Plan: Currently alert and oriented x3 - He does have sundowners at around 5:00 p.m. responds well to Haldol Qualifiers: Alzheimer's disease onset: late-onset Dementia behavioral disturbance: without behavioral disturbance Qualified Code(s): G30.1 - Alzheimer's disease with late onset; F02.80 - Dementia in other diseases classified elsewhere without behavioral disturbance (4) Hypertension Current Visit: No Status: Chronic Plan: Stable at this time Qualifiers: Hypertension type: essential hypertension - Plan Pending Improvement at this time. Will transfer patient to a alf facility for PT needs once accepted Discharge Plan: Other Plan to discharge in: 48 Hours (Once accepted to SNF)
[2019-04-23] MEDS: ACETAMINOPHEN 500 MG TAB PO PRN (16:30)
[2019-04-23] MEDS: TRAZODONE 50 MG TABLET PO SCH (20:11)
[2019-04-23] MEDS: ATORVASTATIN 10 MG TAB PO SCH (20:17)
[2019-04-23 23:41] VITALS: O2SAT 99
[2019-04-24] MEDS: AMLODIPINE 5 MG TAB PO SCH ×2 (09:00→09:53)
[2019-04-24] MEDS: METOPROLOL TAR 50 MG TAB PO SCH ×2 (09:00→09:52)
[2019-04-24] MEDS: LISINOPRIL 5 MG TAB PO SCH ×2 (09:00→09:52)
[2019-04-24] MEDS: GALANTAMINE 24 MG PO SCH (09:51)
[2019-04-24] MEDS: INSULIN -REGULAR HUMAN 50 UNIT/0.5 ML ML SQ SCH ×3 (09:51→16:10)
[2019-04-24] MEDS: CYANOCOBALAMIN 1,000 MCG TAB PO SCH (09:52)
[2019-04-24] MEDS: ASPIRIN EC 81 MG TAB PO SCH (09:52)
[2019-04-24] MEDS: MEMANTINE HCL 10 MG TABLET PO SCH (09:53)
[2019-04-24] MEDS: CLOPIDOGREL 75 MG TABLET PO SCH (09:53)
[2019-04-24] MEDS: RANITIDINE 150 MG TABLET PO SCH (09:56)
--- NOTE | 2019-04-24 12:37 | P.PN ---
Subjective Date of Service: 04/24/19 Chief Complaint: Syncopal episode with collapse Subjective: No new changes, No C/O voiced Pt seen and examined at bedside. Chart reviewed. Case DW with Family at bedside. Patient working with PT at this time. Improving slowly. Currently awaiting [facility] placement Review of Systems 10-point ROS is otherwise unremarkable Physical Examination - Vital Signs Temperature: 97.2 F Blood Pressure: 127/47 Pulse: 77 Respirations: 20 Pulse Ox (%): 95 - Physical Exam General: Alert, In no apparent distress HEENT: Atraumatic, PERRLA, EOMI Neck: Supple, JVD not distended Respiratory: Clear to auscultation bilaterally, Normal air movement Cardiovascular: Regular rate/rhythm, Normal S1 S2 Gastrointestinal: Normal bowel sounds, No tenderness Musculoskeletal: No tenderness Integumentary: No rashes Neurological: Normal speech, Normal tone, Normal affect Lymphatics: No axilla or inguinal lymphadenopathy - Studies Medications List Reviewed: Yes Assessment And Plan - Current Problems (Diagnosis) (1) Syncope and collapse Current Visit: Yes Status: Acute Plan: Pt with Syncope and sudden collapse. Most Likely Vasovagal vs Carotid Disease -Head CT negative for acute abnormality -Carotid Doppler + for BL carotid Disease - Pt poor candidate for surgical Repair. Continue with plavix -+ Orthostatics while working with physical therapy. -ECHO with no acute abnormality -currently will need [facility] placement for PT, pending (2) Bilateral carotid artery disease Current Visit: Yes Status: Chronic Plan: Medical management currently as patient is poor surgical candidate Qualifiers: Carotid artery disease type: occlusion Qualified Code(s): I65.23 - Occlusion and stenosis of bilateral carotid arteries (3) Alzheimer's dementia Current Visit: Yes Status: Chronic Plan: Currently alert and oriented x3 - He does have sundowners at around 5:00 p.m. responds well to Haldol Qualifiers: Alzheimer's disease onset: late-onset Dementia behavioral disturbance: without behavioral disturbance Qualified Code(s): G30.1 - Alzheimer's disease with late onset; F02.80 - Dementia in other diseases classified elsewhere without behavioral disturbance (4) Hypertension Current Visit: No Status: Chronic Plan: Stable at this time Qualifiers: Hypertension type: essential hypertension - Plan Pending Improvement at this time. Will transfer patient to a [facility] facility for PT needs once accepted
--- NOTE | 2019-04-24 14:22 | P.DS ---
Admission Date: 04/21/19 Discharge Date: 04/24/19 Disposition: TRANSFER TO ASSISTED Discharge Condition: FAIR Reason for Admission: Syncopal episode with collapse - Problems (1) Syncope and collapse Current Visit: Yes Status: Acute (2) Bilateral carotid artery disease Current Visit: Yes Status: Chronic Qualifiers: Carotid artery disease type: occlusion Qualified Code(s): I65.23 - Occlusion and stenosis of bilateral carotid arteries (3) Alzheimer's dementia Current Visit: Yes Status: Chronic Qualifiers: Alzheimer's disease onset: late-onset Dementia behavioral disturbance: without behavioral disturbance Qualified Code(s): G30.1 - Alzheimer's disease with late onset; F02.80 - Dementia in other diseases classified elsewhere without behavioral disturbance (4) Hypertension Current Visit: No Status: Chronic Qualifiers: Hypertension type: essential hypertension Brief History of Present Illness: Patient is a 78-year-old gentleman who was at home and the kitchen when he suddenly became faint. His family members were there and were able to grab and and lay him down. He was unresponsive for about 10-20 seconds. He came back around and was not aware of what had happened. He apparently was a little confused and does not recall the event occurring. He has a history of carotid artery disease as well as Alzheimer's disease. He tends to be slightly forgetful any way. Neurologically he appears to be back to his baseline according to family. He will be admitted to the hospital for further workup. Hospital Course: Patient was admitted for Syncope and collapse, Likely secondary to bilateral carotid artery disease. Head CT was negative for acute abnormality. Carotid Doppler + for BL carotid Disease. Pt deemed a poor candidate for surgical Repair. Continue with plavix. ECHO with no acute abnormality Patient with a hx of dementia. Otherwise, he remained stable throughtout the stay. PPhysical therapy was consulted. Patient worked well with PT and it was recommended SNF for PT. Pt was discharged to [facility] for further physical therapy once accepted. Vital Signs/Physical Exam: Temp Pulse Resp BP Pulse Ox 97.2 F 77 20 127/47 L 95 04/24/19 12:37 04/24/19 12:37 04/24/19 12:37 04/24/19 12:37 04/24/19 12:37 General: Alert, In no apparent distress HEENT: Atraumatic, PERRLA, EOMI Neck: Supple, JVD not distended Respiratory: Clear to auscultation bilaterally, Normal air movement Cardiovascular: Regular rate/rhythm, Normal S1 S2 Gastrointestinal: Normal bowel sounds, No tenderness Musculoskeletal: No tenderness Integumentary: No rashes Neurological: Normal speech, Normal tone, Normal affect Lymphatics: No axilla or inguinal lymphadenopathy Laboratory Data at Discharge: WBC 4.8 K/uL (4.3-10.9) D 04/19/19 03:08 Hgb 11.1 g/dL (13.6-17.9) L 04/19/19 03:08 Hct 31.8 % (39.6-49.0) L 04/19/19 03:08 Plt Count 151 K/uL (152-406) L 04/19/19 03:08 PT 14.4 SECONDS (9.5-12.5) H 04/18/19 21:10 INR 1.23 04/18/19 21:10 APTT 31.9 SECONDS (24.3-36.9) 04/18/19 21:10 Sodium 142 mmol/L (136-145) 04/19/19 03:08 Potassium 4.0 mmol/L (3.5-5.1) 04/19/19 03:08 BUN 8 mg/dL (7-18) 04/19/19 03:08 Creatinine 0.90 mg/dL (0.55-1.3) 04/19/19 03:08 Glucose 178 mg/dL (74-106) H 04/19/19 03:08 Magnesium 1.9 mg/dL (1.8-2.4) 04/18/19 21:10 Total Bilirubin 0.4 mg/dL (0.2-1.0) 04/18/19 21:10 AST 9 U/L (15-37) L 04/18/19 21:10 ALT 13 U/L (12-78) 04/18/19 21:10 Alkaline Phosphatase 118 U/L (45-117) H 04/18/19 21:10 Troponin I < 0.02 ng/mL (0.0-0.045) 04/20/19 00:36 Triglycerides 106 mg/dL (<150) 04/19/19 03:08 Cholesterol 163 mg/dL (<200) 04/19/19 03:08 HDL Cholesterol 29 mg/dL (40-60) L 04/19/19 03:08 Cholesterol/HDL Ratio 5.62 04/19/19 03:08 Lipase 75 U/L (73-393) 04/18/19 21:10 Home Medications: Amlodipine [Norvasc*] 0.5 tab PO BEDTIME 04/19/19 Clopidogrel Bisulfate [Plavix*] 1 tab PO DAILY 04/19/19 Cyanocobalamin (Vitamin B-12) [Vitamin B-12] 1 cap PO BID 04/19/19 Fluorouracil 1 teresa TOP BID 04/19/19 Galantamine HBr [Galantamine ER] 24 mg PO DAILY 04/19/19 Insulin Aspart [Novolog] 12 units SQ TID 04/19/19 Insulin Detemir [Levemir] 42 units SQ DAILY 04/19/19 Lisinopril 1 tab PO DAILY 04/19/19 Memantine HCl [Namenda*] 10 mg PO BID 04/19/19 Metoprolol Tartrate [Lopressor*] 50 mg PO BID 04/19/19 Ranitidine [Zantac*] 1 cap PO BID 04/19/19 Simvastatin 1 tab PO BEDTIME 04/19/19 Trazodone HCl 100 mg PO BEDTIME PRN 04/19/19 Patient Discharge Instructions: Please follow up with your PCP in 1 week. Diet: ADA Time spent managing pt's care (in minutes): 45
[2019-04-24 17:24] VITALS: BP 148/64; TEMP 97.5
== END 2019-04-24 20:00 | DRG 68 ==
LOC: ER 20:29 → 2ND 04-19 01:18 → OBSVTOIN 04-21 09:13
PROVIDERS: ADMIT Hospitalist; ATTEND Family Medicine
DX: I65.23 Occlusion and stenosis of bilateral carotid arteries (principal); G30.1 Alzheimer's disease with late onset; F02.80 Dementia in other diseases classified elsewhere, unspecified severity, without behavioral disturbance, psychotic disturbance, mood disturbance, and anxiety; I10 Essential (primary) hypertension; Z87.891 Personal history of nicotine dependence; Z88.0 Allergy status to penicillin
CPT/HCPCS: 36415; 70450; 80048; 80061; 80076; 81003; 82550; 82553; 82962; 83690; 83735; 84484; 85025; 85610; 85730; 93005; 93306; 93880; 97116; 97163; 97530; 99285; G0378; J1170; J1630; J1650; J2250